=== PATIENT | female | born 1960 | race Caucasian/White ===

== ENCOUNTER → 2016-07-06 | Outpatient (CLI) | payer OTHER ==
[~2016-07-06] MED LIST: ALL180 PO; ALPR-385 PO; B-COTAB18 PO; CIPR-255 PO; ESOM1CAP34 PO; FERR325T PO; HYDR-4079 PO; IMT100 PO; MULT-506 PO; NUTRTAB44 PO; POTA20TA16 PO; PRZ/40 PO; RANI300T PO; SPIR50TA3 PO; SUCR1TAB PO
== END | disposition home or self-care (01) ==
LOC: C.LABPBG 10:45
PROVIDERS: ATTEND Family Medicine
DX: R11.2 Nausea with vomiting, unspecified (principal); R68.81 Early satiety; R14.0 Abdominal distension (gaseous); E78.5 Hyperlipidemia, unspecified; R73.03 Prediabetes; E61.1 Iron deficiency; Z11.59 Encounter for screening for other viral diseases

== ENCOUNTER → 2016-07-06 | Outpatient (CLI) | payer OTHER ==
[2016-07-06 18:44] LABS: URINE APPEARANCE TURBID (CLEAR); URINE BILIRUBIN NEG (NEG); URINE COLOR DK YELLOW; URINE EPITHELIAL CELL AUTO >30 /lpf (0-5); URINE NITRITE NEG (NEG); URINE SPECIFIC GRAVITY 1.024 (1.000-1.030); UROBILINOGEN NEG (NEG)
[2016-07-06 18:45] LABS: MANUAL MICROSCOPIC REQUIRED? NO; REVIEW REQ? NO
== END | disposition home or self-care (01) ==
LOC: C.LABSPEC 11:55
PROVIDERS: ATTEND Family Medicine
DX: R10.9 Unspecified abdominal pain (principal)

== ENCOUNTER → 2016-07-08 | Outpatient (CLI) | payer OTHER ==
--- NOTE | 2016-07-08 14:24 | DIAGNOSTIC IMAGING REPORT ---
CT OF THE ABDOMEN AND PELVIS WITHOUT CONTRAST CLINICAL HISTORY: Right flank pain. Back pain. Evaluate for stone. COMPARISON STUDY: CT of the abdomen and pelvis July 21, 2015 and abdominal series February 25, 2016. TECHNIQUE: Axial images of the abdomen and pelvis were obtained without IV contrast. Images were reviewed in the axial, sagittal, and coronal planes. FINDINGS: No renal, ureteral or bladder calculi are present. There is no hydronephrosis or hydroureter. Evaluation of the remainder of the abdomen and pelvis is suboptimal on this unenhanced exam. Unenhanced images of the liver, spleen, adrenal glands and pancreas are normal. There is no peripancreatic infiltration. The gallbladder is not visualized. The caliber of small and large bowel are normal. The appendix is normal. There is sigmoid diverticulosis without evidence for acute diverticulitis. There is no ascites or lymphadenopathy. No suspicious skeletal lesions are identified. IMPRESSION: 1. No urinary calculi or hydronephrosis. 2. No acute process within the abdomen or pelvis on unenhanced exam. Normal appendix. Electronically signed by: Tj Blunt M.D. 07/08/2016 2:22 PM Dictated Date/Time: 07/08/2016 2:17 PM
== END | disposition home or self-care (01) ==
LOC: C.CTS 13:44
PROVIDERS: ATTEND Family Medicine
DX: R10.9 Unspecified abdominal pain (principal)

== ENCOUNTER → 2016-08-20 | Outpatient (CLI) | payer OTHER ==
[~2016-08-20] MED LIST changes: +FERR1TAB62 PO; -FERR325T PO
[2016-08-20 17:24] LABS: BENZODIAZEPINE, URINE POS (NEG); COCAINE,URINE NEG (NEG); PHENCYCLIDINE, URINE NEG (NEG)
[2016-08-22 23:24] LABS: COD UR NEGATIVE NG/ML (CUTOFF=50); HYDROCOD UR 2030 NG/ML (CUTOFF=50); HYDROMOR UR NEGATIVE NG/ML (CUTOFF=50); HYDROXYETHYLFLURAZEPAM CONF NEGATIVE NG/ML (CUTOFF=50); HYDROXYMIDAZOLAM NEGATIVE NG/ML (CUTOFF=50); HYDROXYTRIAZOLAM CONF NEGATIVE NG/ML (CUTOFF=50); MORPHINE UR NEGATIVE NG/ML (CUTOFF=50); NORHYDROCODONE CONF UR 1790 NG/ML (CUTOFF=50); OXYMORPH UR NEGATIVE NG/ML (CUTOFF=50); TEMAZEPAM CONF NEGATIVE NG/ML (CUTOFF=50)
== END | disposition home or self-care (01) ==
LOC: C.LABPBG 15:01
PROVIDERS: ATTEND Family Medicine
DX: Z51.81 Encounter for therapeutic drug level monitoring (principal)

== ENCOUNTER → 2017-01-11 | Outpatient (CLI) | payer OTHER ==
[~2017-01-11] MED LIST changes: -FERR1TAB62 PO; +FERR325T PO
[2017-01-11 12:16] LABS: MEAN CELL VOLUME 91.5 fL (80-100); MEAN CORPUSCULAR HEMOGLOBIN 30.8 pg (25-34); MEAN CORPUSCULAR HGB CONC 33.7 g/dl (32-36); MEAN PLATELET VOLUME 10.7 fL (7.4-10.4); PLATELET COUNT 394 K/uL (130-400); RED BLOOD COUNT 4.48 M/uL (4.2-5.4); WHITE BLOOD COUNT 8.83 K/uL (4.8-10.8)
[2017-01-11 12:39] LABS: ESTIMATED AVERAGE GLUCOSE 117 mg/dl; HA1C FLAG Normal (Normal)
[2017-01-11 12:42] LABS: BLOOD UREA NITROGEN 10 mg/dl (7-18); BUN/CREATININE RATIO 12.3 (10-20); C-REACTIVE PROTEIN < 0.29 mg/dl (0-0.29); CALCIUM 9.2 mg/dl (8.5-10.1); CARBON DIOXIDE 30 mmol/L (21-32); CHLORIDE 105 mmol/L (98-107); CREATININE 0.84 mg/dl (0.60-1.20); GLUCOSE 100 mg/dl (70-99); POTASSIUM 4.2 mmol/L (3.5-5.1); SODIUM 139 mmol/L (136-145); TRIGLYCERIDES 104 mg/dl (0-150); VERY LOW DENSITY LIPOPROT CALC 21 mg/dl
[2017-01-11 12:45] LABS: CHOLESTEROL 207 mg/dl (0-200); FERRITIN 156.9 ng/ml (8.0-388.0); HDL CHOLESTEROL 68 mg/dl; LDL CHOLESTEROL CALCULATED 118 mg/dl; RHEUMATOID FACTOR < 10.0 U/mL (0-15)
== END | disposition home or self-care (01) ==
LOC: C.LABPBG 07:37
PROVIDERS: ATTEND Family Medicine
DX: E78.5 Hyperlipidemia, unspecified (principal); E83.42 Hypomagnesemia; E87.6 Hypokalemia; R73.03 Prediabetes; M79.643 Pain in unspecified hand; M25.40 Effusion, unspecified joint; E61.1 Iron deficiency

== ENCOUNTER 2017-05-17 13:05 | Emergency (ER) | payer OTHER ==
[~2017-05-17] VITALS: Ht 152.4 cm; Wt 55.0 kg
[~2017-05-17 13:05] MED LIST changes: +FERR1TAB62 PO; -FERR325T PO; +POTA-639 PO; -POTA20TA16 PO; -SPIR50TA3 PO; +SPIR50TA5 PO
[2017-05-17 13:15] VITALS: Ht 152.4 cm; Wt 55.0 kg
[2017-05-17] MEDS ORDERED: MECLIZINE HCL 25 MG TAB PO STA (14:36)
[2017-05-17] MEDS ORDERED: SODIUM CHLORIDE 0.9% 1000ML 1,000 ML IV STA ×2 (14:36)
[2017-05-17] MEDS ORDERED: ONDANSETRON INJ 2 MG/ML 2 ML VIAL IV STA ×2 (14:36)
[2017-05-17] MEDS ORDERED: KETOROLAC TROMETHAMINE 30 MG/ML VIAL IV STA (14:36)
[2017-05-17] MEDS ORDERED: HYDROmorphone INJ 0.5 MG/0.5 ML SYR IV STA (14:36)
[2017-05-17 14:56] LABS: BASO % 0.4 %; BASO ABS # 0.05 K/uL (0-0.2); EOS % 0.3 %; EOS ABS # 0.04 K/uL (0-0.5); HEMATOCRIT 42.8 % (37-47); HEMOGLOBIN 14.8 g/dL (12.0-16.0); IG# 0.04 K/uL (0.00-0.02); LYMPH % 12.6 %; LYMPH ABS # 1.71 K/uL (1.2-3.4); MEAN CELL VOLUME 91.8 fL (80-100); MEAN CORPUSCULAR HEMOGLOBIN 31.8 pg (25-34); MEAN CORPUSCULAR HGB CONC 34.6 g/dl (32-36); MEAN PLATELET VOLUME 10.4 fL (7.4-10.4); MONO % 6.4 %; MONO ABS # 0.87 K/uL (0.11-0.59); NEUT ABS # 10.86 K/uL (1.4-6.5); PLATELET COUNT 423 K/uL (130-400); RED CELL DISTRIBUTION WIDTH CV 12.8 % (11.5-14.5); RED CELL DISTRIBUTION WIDTH SD 42.9 fL (36.4-46.3); WHITE BLOOD COUNT 13.57 K/uL (4.8-10.8)
[2017-05-17 15:01] VITALS: TEMP 37; O2SAT 99
--- NOTE | 2017-05-17 15:16 | DIAGNOSTIC IMAGING REPORT ---
CHEST ONE VIEW PORTABLE CLINICAL HISTORY: EVALUATE ALTERED MENTAL STATUS/WEAKNESS dyspnea COMPARISON STUDY: 02/25/2016 FINDINGS: The bones soft tissues and hemidiaphragms are normal. The cardiomediastinal silhouette is normal. The lungs are clear. The pulmonary vasculature is normal. IMPRESSION: Negative chest. The above report was generated using voice recognition software. It may contain grammatical, syntax or spelling errors. Electronically signed by: Kentrell Colindres M.D. 05/17/2017 3:15 PM Dictated Date/Time: 05/17/2017 3:15 PM
--- NOTE | 2017-05-17 15:20 | DIAGNOSTIC IMAGING REPORT ---
HEAD WITHOUT CONTRAST (CT) CT DOSE: 537.48 mGy.cm HISTORY: Mental status change EVALUATE ALTERED MENTAL STATUS/WEAKNESS TECHNIQUE: Multiaxial CT images of the head were performed without the use of intravenous contrast. A dose lowering technique was utilized adhering to the principles of ALARA. Comparison: None. Findings: The paranasal sinuses and mastoid air cells are clear. The calvarium and skull base are intact. The ventricles and sulci are within normal limits. There is no mass, hematoma, midline shift, or acute infarct. Impression: No acute intracranial abnormality. The above report was generated using voice recognition software. It may contain grammatical, syntax or spelling errors. Electronically signed by: Kentrell Colindres M.D. 05/17/2017 3:19 PM Dictated Date/Time: 05/17/2017 3:18 PM
[2017-05-17 16:13] LABS: ALBUMIN 4.1 gm/dl (3.4-5.0); ALT/SGPT 20 U/L (12-78); AST/SGOT 10 U/L (15-37); BLOOD UREA NITROGEN 13 mg/dl (7-18); CALCIUM 9.4 mg/dl (8.5-10.1); CARBON DIOXIDE 29 mmol/L (21-32); CREATININE 0.84 mg/dl (0.60-1.20); GLUCOSE 100 mg/dl (70-99); POTASSIUM 3.6 mmol/L (3.5-5.1); SODIUM 139 mmol/L (136-145)
[2017-05-17 16:23] LABS: ALKALINE PHOSPHATASE 84 U/L (45-117); TOTAL PROTEIN 8.6 gm/dl (6.4-8.2)
[2017-05-17 17:48] VITALS: BP 105/80; PULSE 63; O2SAT 98
--- NOTE | 2017-05-17 22:12 | EMERGENCY ROOM VISIT NOTE ---
History Report prepared by Liseth: Roberta Salmon Under the Supervision of: Dr. Tirstan Callaway D.O. First contact with patient: 14:17 Chief Complaint: NAUSEA Stated Complaint: NAUSEA, BACK/SHOULDER PAIN, HEADACHE Nursing Triage Summary: Nausea and kidney disease History of Present Illness The patient is a 56 year old female who presents to the Emergency Room with complaints of worsening nausea starting this morning. The patient states that she has been sick and dizzy for four days. She reports that she feels like her head is spinning. She reports that she has vomited 3 times today and has abdominal pain. She notes that she has had this before when she is dehydrated and has a flare up of Gitelman's Syndrome. She states that she has these symptoms once to twice a month.She states that it is worse with movement. The patient complains of her legs feeling weak and being able to feel her pulse in her head. The patient denies chest pain, shortness of breath, nausea, and fever. No focal weakness. Source of History: patient Onset: four days ago Position: other (global) Quality: other ("head is spinning") Timing: worsening Modifying Factors (Worsening): movement Associated Symptoms: + vomiting, + abdominal pain, + weakness, No fevers, No chest pain, No SOB, No nausea Note: The patient complains of dizziness and feeling her pulse in her head. Review of Systems See HPI for pertinent positives & negatives. A total of 10 systems reviewed and were otherwise negative. Past Medical & Surgical Medical Problems: (1) Anxiety disorder (2) Depressive disorder (3) GERD (gastroesophageal reflux disease) (4) Gitelman syndrome (5) Gitelman syndrome (6) HTN (hypertension) (7) Hypokalemia (8) Kidney disease (9) Shingles Surgical Problems: (1) History of cholecystectomy (2) Previous section Family History Diabetes mellitus Gallbladder disease Heart disease Hypertension Kidney disease Kidney stones Social History Smoking Status: Former Smoker Alcohol Use: occasionally Marital Status: Housing Status: lives with family Occupation Status: unemployed Current/Historical Medications Scheduled B-Complex Vitamins (Vitamin B Complex), 1 TAB PO QAM Esomeprazole Magnesium (Esomeprazole Magnesium), 40 MG PO BID Ferrous Sulfate (Ferrous Sulfate), 325 MG PO BIDM Fluoxetine Hcl (Prozac), 40 MG PO HS Multivitamin (Multivitamin), 1 TAB PO QAM Nutritional Supplements (Estroven Pm), 1 TAB PO HS Potassium Ext Rel (Klor-Con), 40 MEQ PO QPM Ranitidine Hcl (Zantac), 300 MG PO BID Spironolactone (Aldactone), 50 MG PO HS Scheduled PRN Fexofenadine HCl (Fexofenadine HCl), 180 MG PO DAILY PRN for Allergy Symptoms Sucralfate (Sucralfate), 1 GM PO ACHS PRN for Indigestion Sumatriptan Succinate (Imitrex), 100 MG PO UD PRN for Migraine Allergies Coded Allergies: Iodinated Contrast Media (Verified Allergy, Severe, THROAT SWELLING, HIVES , 02/25/16) Amoxicillin (Unverified Allergy, Intermediate, rash, 05/17/17) Clavulanic Acid (Unverified Allergy, Intermediate, rash, 05/17/17) Sulfa Antibiotics (Verified Allergy, Intermediate, "SULFA": UNKNOWN, ) CI Pigment Blue 63 (Unverified Allergy, Unknown, TORE STOMACH UP, 05/17/17) Dexlansoprazole (Unverified Allergy, Unknown, TORE STOMACH UP, 05/17/17) Latex (Verified Allergy, Unknown, SORES, 05/17/17) Sulfate (Unverified Allergy, Unknown, BLOTCHY, 05/17/17) Meperidine (Verified Adverse Reaction, Intermediate, VOMITING, 02/25/16) Morphine (Verified Adverse Reaction, Intermediate, VOMITING, 05/17/17) Physical Exam Vital Signs Date Time Temp Pulse Resp B/P (MAP) Pulse Ox O2 Delivery O2 Flow Rate FiO2 05/17/17 17:48 63 105/80 98 05/17/17 17:00 79 16 124/74 99 Room Air 05/17/17 15:01 99 Room Air 05/17/17 15:01 37.0 76 18 127/79 100 Room Air 81 132/84 80 134/76 05/17/17 15:00 74 16 129/78 99 Room Air 05/17/17 13:15 37.0 85 20 131/87 97 Room Air Physical Exam GENERAL: Sitting up in bed, alert, well appearing, well nourished, no distress, non-toxic EYE EXAM: normal conjunctiva. PERRL and EOM's grossly intact. OROPHARYNX: no exudate, no erythema, lips, buccal mucosa, and tongue normal and mucous membranes are moist NECK: supple, no nuchal rigidity, no adenopathy, non-tender LUNGS: Clear to auscultation. Normal chest wall mechanics HEART: no murmurs, S1 normal and S2 normal ABDOMEN: abdomen soft, non-tender, normo-active bowel sounds, no masses, no rebound or guarding. BACK: Back is symmetrical on inspection and there is no deformity, no midline tenderness, no CVA tenderness. Acute reproducible tenderness in mid-thoracic region paraspinal tacking up to OA joint causing cephalgia. SKIN: no rashes and no bruising UPPER EXTREMITIES: upper extremities are grossly normal. LOWER EXTREMITIES: No pitting edema. NEURO EXAM: Normal sensorium, cranial nerves II-XII intact, normal speech, no weakness of arms, no weakness of legs. No drift. Finger to nose intact. Gross sensation intact. Medical Decision & Procedures ER Provider Diagnostic Interpretation: Radiology results as stated below per my review and the radiologist's interpretation: CHEST ONE VIEW PORTABLE CLINICAL HISTORY: EVALUATE ALTERED MENTAL STATUS/WEAKNESS dyspnea COMPARISON STUDY: 02/25/2016 FINDINGS: The bones soft tissues and hemidiaphragms are normal. The cardiomediastinal silhouette is normal. The lungs are clear. The pulmonary vasculature is normal. IMPRESSION: Negative chest. The above report was generated using voice recognition software. It may contain grammatical, syntax or spelling errors. Electronically signed by: Kentrell Colindres M.D. 05/17/2017 3:15 PM Dictated Date/Time: 05/17/2017 3:15 PM HEAD WITHOUT CONTRAST (CT) CT DOSE: 537.48 mGy.cm HISTORY: Mental status change EVALUATE ALTERED MENTAL STATUS/WEAKNESS TECHNIQUE: Multiaxial CT images of the head were performed without the use of intravenous contrast. A dose lowering technique was utilized adhering to the principles of ALARA. Comparison: None. Findings: The paranasal sinuses and mastoid air cells are clear. The calvarium and skull base are intact. The ventricles and sulci are within normal limits. There is no mass, hematoma, midline shift, or acute infarct. Impression: No acute intracranial abnormality. The above report was generated using voice recognition software. It may contain grammatical, syntax or spelling errors. Electronically signed by: Kentrell Colindres M.D. 05/17/2017 3:19 PM Dictated Date/Time: 05/17/2017 3:18 PM Laboratory Results 05/17/17 13:55 Red Blood Count 4.66, Mean Corpuscular Volume 91.8, Mean Corpuscular Hemoglobin 31.8, Mean Corpuscular Hemoglobin Concent 34.6, Mean Platelet Volume 10.4, Neutrophils (%) (Auto) 80.0, Lymphocytes (%) (Auto) 12.6, Monocytes (%) (Auto) 6.4, Eosinophils (%) (Auto) 0.3, Basophils (%) (Auto) 0.4, Neutrophils # (Auto) 10.86, Lymphocytes # (Auto) 1.71, Monocytes # (Auto) 0.87, Eosinophils # (Auto) 0.04, Basophils # (Auto) 0.05 05/17/17 13:55 Test 05/17/17 13:55 05/17/17 14:42 05/17/17 15:01 White Blood Count 13.57 K/uL (4.8-10.8) Red Blood Count 4.66 M/uL (4.2-5.4) Hemoglobin 14.8 g/dL (12.0-16.0) Hematocrit 42.8 % (37-47) Mean Corpuscular Volume 91.8 fL (80-100) Mean Corpuscular Hemoglobin 31.8 pg (25-34) Mean Corpuscular Hemoglobin Concent 34.6 g/dl (32-36) Platelet Count 423 K/uL (130-400) Mean Platelet Volume 10.4 fL (7.4-10.4) Neutrophils (%) (Auto) 80.0 % Lymphocytes (%) (Auto) 12.6 % Monocytes (%) (Auto) 6.4 % Eosinophils (%) (Auto) 0.3 % Basophils (%) (Auto) 0.4 % Neutrophils # (Auto) 10.86 K/uL (1.4-6.5) Lymphocytes # (Auto) 1.71 K/uL (1.2-3.4) Monocytes # (Auto) 0.87 K/uL (0.11-0.59) Eosinophils # (Auto) 0.04 K/uL (0-0.5) Basophils # (Auto) 0.05 K/uL (0-0.2) RDW Standard Deviation 42.9 fL (36.4-46.3) RDW Coefficient of Variation 12.8 % (11.5-14.5) Immature Granulocyte % (Auto) 0.3 % Immature Granulocyte # (Auto) 0.04 K/uL (0.00-0.02) Anion Gap 5.0 mmol/L (3-11) Est Creatinine Clear Calc Drug Dose 57.5 ml/min Estimated GFR () 89.4 Estimated GFR (Non- 77.2 BUN/Creatinine Ratio 15.6 (10-20) Calcium Level 9.4 mg/dl (8.5-10.1) Total Bilirubin 0.3 mg/dl (0.2-1) Direct Bilirubin < 0.1 mg/dl (0-0.2) Aspartate Amino Transf (AST/SGOT) 10 U/L (15-37) Alanine Aminotransferase (ALT/SGPT) 20 U/L (12-78) Alkaline Phosphatase 84 U/L (45-117) Troponin I < 0.015 ng/ml (0-0.045) Total Protein 8.6 gm/dl (6.4-8.2) Albumin 4.1 gm/dl (3.4-5.0) Thyroid Stimulating Hormone (TSH) 1.190 uIu/ml (0.300-4.500) Bedside Glucose 91 mg/dl (70-90) Urine Color DK YELLOW Urine Appearance CLEAR (CLEAR) Urine pH 5.0 (4.5-7.5) Urine Specific [place] 1.025 (1.000-1.030) Urine Protein NEG (NEG) Urine Glucose (UA) NEG (NEG) Urine Ketones 2+ (NEG) Urine Occult Blood 1+ (NEG) Urine Nitrite NEG (NEG) Urine Bilirubin NEG (NEG) Urine Urobilinogen NEG (NEG) Urine Leukocyte Esterase TRACE (NEG) Urine WBC (Auto) 1-5 /hpf (0-5) Urine RBC (Auto) 0-4 /hpf (0-4) Urine Hyaline Casts (Auto) 1-5 /lpf (0-5) Urine Epithelial Cells (Auto) 20-30 /lpf (0-5) Urine Bacteria (Auto) NEG (NEG) Laboratory results per my review. Medications Administered Medications (Trade) Dose Ordered Sig/Taylor Route Start Time Stop Time Status Last Admin Dose Admin Sodium Chloride 1,000 ml @ 999 mls/hr Q1H1M STAT IV 05/17/17 14:36 05/17/17 15:36 DC 05/17/17 14:53 999 MLS/HR Ondansetron HCl (Zofran Inj) 4 mg NOW STAT IV 05/17/17 14:36 05/17/17 14:39 DC 05/17/17 14:52 4 MG Ketorolac Tromethamine (Toradol Inj) 30 mg NOW STAT IV 05/17/17 14:36 05/17/17 14:39 DC 05/17/17 14:52 30 MG Meclizine HCl (Antivert Tab) 25 mg NOW STAT PO 05/17/17 14:36 05/17/17 14:39 DC 05/17/17 14:56 25 MG Hydromorphone HCl (Dilaudid Inj) 0.5 mg NOW STAT IV 05/17/17 14:36 05/17/17 14:39 DC 05/17/17 14:55 0.5 MG ECG Indication: nausea Rate (beats per minute): 68 Rhythm: sinus rhythm Findings: no ectopy, other (normla axis) ED Course ED COURSE: Vital signs were reviewed and showed normal vitals. The patients medical record was reviewed The above diagnostic studies were performed and reviewed. ED treatments and interventions as stated above. 1429: The patient was evaluated in room C6. A complete history and physical examination was performed. 1436: Ordered Dilaudid Inj 0.5 mg IV, Antivert Tab 25 mg PO, Toradol Inj 30 mg IV, Zofran Inj 4 mg IV, NSS 1000 ml @ 999 mls/hr IV, Zofran Inj 4 mg IV, NSS 1000 ml @ 999 mls/hr IV. 1708: Upon reevaluation, the patient is resting comfortably.I discussed my findings with the patient and she understands and agrees with the treatment plan. Based on the patients age, coexisting illnesses, exam and lab findings the decision to treat as an outpatient was made. The patient remained stable while under my care. The patient appeared well at the time of discharge. Medical Decision Differential diagnosis includes etiologies such as benign positional vertigo, dehydration, hypovolemia, anemia, tumor, infection, hypoglycemia, electrolyte abnormalities, cardiac sources, intracerebral event, toxicologic, neurologic, as well as others were entertained. Patient is a 36-year-old female who presents to ER feeling dizzy which which is purely positional. Patient has had this multiple times before in the past. Labs show a mild leukocytosis of 13,000. BMP all LFTs, bilirubin, troponin and TSH was unremarkable. UA was unremarkable. CT head was negative. Chest x-ray was unremarkable. Patient was updated at bedside. She is completely neurologically intact. No cerebellar signs. Patient was given fluids. She was slightly dehydrated with ketones in urine. She notes she has had this type of vertigo multiple times before in the past. I believe her back pain is purely muscle skeletal and examined intermittent to her headache. This was not the worse headache of her life. It did come on gradually. No signs meningitis or encephalitis. Based on her symptoms patient was given fluids, Antivert, Zofran and narcotics. She felt significant better. She is discharged follow- up with PCP as an outpatient as her main concern was dehydration with her kidney disease. Discussed with Pt concerning signs and symptoms to watch out for. Pt was instructed to follow up with their PCP and discussed with the patient their option to return to the ED at anytime for persistent or worsening symptoms. The appropriate anticipatory guidance and out-patient management, including indications for return to the emergency department, were explained at length to the patient and understood. Medication Reconcilliation Current Medication List: was personally reviewed by me Blood Pressure Screening Patient's blood pressure: Normal blood pressure Blood pressure disposition: Did not require urgent referral Impression Primary Impression: Vertigo Additional Impressions: Musculoskeletal back pain Headache Scribe Attestation The scribe's documentation has been prepared under my direction and personally reviewed by me in its entirety. I confirm that the note above accurately reflects all work, treatment, procedures, and medical decision making performed by me. Departure Information Dispostion Home / Self-Care Referrals Barbie Baron DO (PCP) Forms HOME CARE DOCUMENTATION FORM, IMPORTANT VISIT INFORMATION Patient Instructions My [facility] Additional Instructions Please follow up with your primary care doctor with in the next 24 hours. Any worsening of your symptoms, please return to the ED immediately. This includes any fevers greater than 100.4, worsening pain, weakness in your arms or legs, change in vision, chest pain, shortness breath, persistent nausea, vomiting, unable to eat or drink, or any other concerning signs or symptoms from your standpoint. Please take Tylenol or Motrin as needed for pain. Problem Qualifiers Additional Impressions: Headache Headache type: unspecified Headache chronicity pattern: acute headache Intractability: not intractable Qualified Codes: R51 - Headache
[2017-06-06] MEDS ORDERED: TRAZ1TAB49 PO (12:11)
[2017-06-06] MEDS ORDERED: ONDA4TAB46 PO (12:11)
[2017-06-06] MEDS ORDERED: PRLSR20 PO (12:11)
== END 2017-05-17 17:58 | disposition home or self-care (01) ==
LOC: C.EDB 13:07 → C.EDC 17:58
DX: R42 Dizziness and giddiness (principal); M54.9 Dorsalgia, unspecified; E86.0 Dehydration; R51 Headache; E26.81 Bartter's syndrome; F41.9 Anxiety disorder, unspecified; F32.9 Major depressive disorder, single episode, unspecified; K21.9 Gastro-esophageal reflux disease without esophagitis; I10 Essential (primary) hypertension; Z90.49 Acquired absence of other specified parts of digestive tract; Z83.3 Family history of diabetes mellitus; Z82.49 Family history of ischemic heart disease and other diseases of the circulatory system; Z84.1 Family history of disorders of kidney and ureter; Z87.891 Personal history of nicotine dependence; Z79.899 Other long term (current) drug therapy; N28.9 Disorder of kidney and ureter, unspecified

== ENCOUNTER → 2017-06-06 | Day surgery (SDC) | payer OTHER ==
[~2017-06-06] VITALS: Ht 152.4 cm; Wt 54.5 kg
[~2017-06-06] MED LIST changes: -ALPR-385 PO; -CIPR-255 PO; +DSY50 PO; -HYDR-4079 PO; +LIDOCAINE HCL 2% 2 ML VIAL (20MG/ML) ONE; +MIDAZOLAM HCL 1 MG/ML 2ML VIAL ONE; +ONDA4TAB46 PO; +ONDANSETRON INJ 2 MG/ML 2 ML VIAL ONE; -POTA-639 PO; +POTA20TA16 PO; +PRLSR20 PO; +PROMETHAZINE HCL INJ 25 MG in SODIUM CHLORIDE 0.9% 50ML 50 ML IV ONE; +PROMETHAZINE HCL INJ 25 MG/ML 1 ML VIAL ONE; +PROPOFOL IV EMULSION 10 MG/ML 20 ML VIAL IV ONE; +SPIR50TA3 PO; -SPIR50TA5 PO
[2017-06-06 12:12] VITALS: Ht 152.4 cm; Wt 54.5 kg
--- NOTE | 2017-06-06 12:40 | Endo History and Physical ---
History & Physical Date of Service: Jun 06, 2017. Chief Complaint: dysphagia,abdominal pain and nausea,vomiting Referring Physician: Dr. Barbie Baron History of Present Illness 56 yo CF who presents for EGD secondary to dysphagia and abdominal pain. Past Medical History Anxiety, Reflux, Hypertension, Kidney Disease, Other, Depression Past Surgical History Hx Cardiac Surgery: No Hx Internal Defibrillator: No Hx Pacemaker: No Hx Abdominal Surgery: Yes (C SECTION, GALLBLADDER) Hx of Implantable Prosthesis: No Hx Post-Op Nausea and Vomiting: No Hx Cancer Surgery: No Hx Thoracic Surgery: No Hx Orthopedic: No Hx Urinary Tract Surgery: No Family History None Social History Smoking Status: Former Smoker Hx Substance Use: Yes (marijuana use) Hx Alcohol Use: No Allergies Coded Allergies: Iodinated Contrast Media (Verified Allergy, Severe, THROAT SWELLING, HIVES , 02/25/16) Amoxicillin (Verified Allergy, Intermediate, rash, 06/06/17) Clavulanic Acid (Verified Allergy, Intermediate, rash, 06/06/17) Sulfa Antibiotics (Verified Allergy, Intermediate, "SULFA": UNKNOWN, ) CI Pigment Blue 63 (Verified Allergy, Unknown, TORE STOMACH UP, 06/06/17) Dexlansoprazole (Verified Allergy, Unknown, TORE STOMACH UP, 06/06/17) Latex (Verified Allergy, Unknown, SORES, 05/17/17) Sulfate (Verified Allergy, Unknown, BLOTCHY, 06/06/17) Meperidine (Verified Adverse Reaction, Intermediate, VOMITING, 02/25/16) Morphine (Verified Adverse Reaction, Intermediate, VOMITING, 05/17/17) Current Medications Reported Home Medications Medications Dose Route/Sig Max Daily Dose Days Date Category Dose Instructions Zofran (Ondansetron HCl) 4 Mg Tab 4 Mg PO Q6 PRN 06/06/17 Reported Trazodone HCl 50 Mg Tab 50 Mg PO HS 06/06/17 Reported Prilosec (Omeprazole) 20 Mg Capcr 40 Mg PO DAILY 06/06/17 Reported Imitrex (Sumatriptan Succinate) 100 Mg Tab 100 Mg PO UD PRN 02/25/16 Reported TAKE 1 TABLET AT ONSET OF MIGRAINE HEADACHE, MAY REPEAT IN 2 HOURS IF NEEDED Sucralfate 1 Gm Tab 1 Gm PO ACHS PRN 02/25/16 Reported CRUSH ONE TABLET AND MIX WITH 15 ML OF WATER AND TAKE NEEDED 30 MINUTES BEFORE MEALS AND AT BEDTIME Aldactone (Spironolactone) 50 Mg Tab 50 Mg PO HS 02/25/16 Reported Fexofenadine HCl 180 Mg Tab 180 Mg PO DAILY PRN 02/25/16 Reported Zantac (Ranitidine Hcl) 300 Mg Tab 300 Mg PO BID 02/25/16 Reported Ferrous Sulfate 325 Mg Tab 325 Mg PO BIDM 10/09/15 Reported Multivitamin (Multivitamins) Tab 1 Tab PO QAM 08/20/15 Reported Estroven Pm (Nutritional Supplements) 1 Tab Tab 1 Tab PO HS 09/28/14 Reported Prozac (Fluoxetine Hcl) 40 Mg Cap 40 Mg PO HS 12/29/13 Reported Vitamin B Complex (B-Complex Vitamins) 1 Tab Tab 1 Tab PO QAM 12/29/13 Reported Klor-Con (Potassium Chloride) 20 Meq Tabcr 40 Meq PO QPM 12/29/13 Reported Vital Signs Weight (Kilograms): 54.55 Height (Feet): 5 Height (Inches): 0 Date Time Temp Pulse Resp B/P (MAP) Pulse Ox O2 Delivery O2 Flow Rate FiO2 06/06/17 12:25 36.9 81 16 115/74 (88) 98 Room Air Physical Exam General Appearance: WD/WN, no apparent distress Respiratory/Chest: Auscultation: breath sounds normal Cardiovascular: Heart Auscultation: RRR Abdomen: Bowel Sounds: normal Inspection & Palpation: soft, non-distended, no tenderness, guarding & rebound Assessment and Plan Assessment: 56 yo CF who presents for EGD secondary to dysphagia and abdominal pain. Plan: Proceed with EGD.
--- NOTE | 2017-06-06 13:07 | GI REPORT ---
Procedure Date: 06/06/2017 12:44 PM Procedure: Upper GI endoscopy Indications: Epigastric abdominal pain, Dysphagia Medicines: Monitored Anesthesia Care Complications: No immediate complications. Estimated Blood Loss: Estimated blood loss: none. Procedure: Pre-Anesthesia Assessment: - Prior to the procedure, a History and Physical was performed, and patient medications and allergies were reviewed. The patient's tolerance of previous anesthesia was also reviewed. The risks and benefits of the procedure and the sedation options and risks were discussed with the patient. All questions were answered, and informed consent was obtained. Prior Anticoagulants: The patient has taken no previous anticoagulant or antiplatelet agents. ASA Grade Assessment: II - A patient with mild systemic disease. After reviewing the risks and benefits, the patient was deemed in satisfactory condition to undergo the procedure. After obtaining informed consent, the endoscope was passed under direct vision. Throughout the procedure, the patient's blood pressure, pulse, and oxygen saturations were monitored continuously. The scope was introduced through the mouth, and advanced to the second part of duodenum. The upper GI endoscopy was accomplished without difficulty. The patient tolerated the procedure well. Findings: A mild Schatzki ring (acquired) was found at the gastroesophageal junction. A TTS dilator was passed through the scope. Dilation with an 18-19-20 mm balloon dilator was performed to 20 mm. Biopsies were taken with a cold forceps for histology. Localized minimal inflammation characterized by erythema was found in the gastric antrum. Biopsies were taken with a cold forceps for histology. The examined duodenum was normal. Impression: - Mild Schatzki ring. Dilated. Biopsied. - Gastritis. Biopsied. - Normal examined duodenum. Recommendation: - Resume previous diet. - Continue present medications. - Await pathology results. - Return to GI office as previously scheduled. Mohan Frias DO 06/06/2017 1:07:09 PM This report has been signed electronically. Note Initiated On: 06/06/2017 12:44 PM I attest to the content of the Intraoperative Record and orders documented therein, exceptions below
--- NOTE | 2017-06-06 13:09 | Discharge Instructions ---
Endoscopy Patient Instructions Date / Procedure(s) Performed Jun 06, 2017. EGD Allergy Information Coded Allergies: Iodinated Contrast Media (Verified Allergy, Severe, THROAT SWELLING, HIVES , 02/25/16) Amoxicillin (Verified Allergy, Intermediate, rash, 06/06/17) Clavulanic Acid (Verified Allergy, Intermediate, rash, 06/06/17) Sulfa Antibiotics (Verified Allergy, Intermediate, "SULFA": UNKNOWN, ) CI Pigment Blue 63 (Verified Allergy, Unknown, TORE STOMACH UP, 06/06/17) Dexlansoprazole (Verified Allergy, Unknown, TORE STOMACH UP, 06/06/17) Latex (Verified Allergy, Unknown, SORES, 05/17/17) Sulfate (Verified Allergy, Unknown, BLOTCHY, 06/06/17) Meperidine (Verified Adverse Reaction, Intermediate, VOMITING, 02/25/16) Morphine (Verified Adverse Reaction, Intermediate, VOMITING, 05/17/17) Discharge Date / Findings Jun 06, 2017. Gastritis s/p biopsies Schatzki's Ring s/p dilation and biopsies Medication Instructions OK to resume all medications today as prescribed Reported Home Medications Medications Dose Route/Sig Max Daily Dose Days Date Category Dose Instructions Zofran (Ondansetron HCl) 4 Mg Tab 4 Mg PO Q6 PRN 06/06/17 Reported Trazodone HCl 50 Mg Tab 50 Mg PO HS 06/06/17 Reported Prilosec (Omeprazole) 20 Mg Capcr 40 Mg PO DAILY 06/06/17 Reported Imitrex (Sumatriptan Succinate) 100 Mg Tab 100 Mg PO UD PRN 02/25/16 Reported TAKE 1 TABLET AT ONSET OF MIGRAINE HEADACHE, MAY REPEAT IN 2 HOURS IF NEEDED Sucralfate 1 Gm Tab 1 Gm PO ACHS PRN 02/25/16 Reported CRUSH ONE TABLET AND MIX WITH 15 ML OF WATER AND TAKE NEEDED 30 MINUTES BEFORE MEALS AND AT BEDTIME Aldactone (Spironolactone) 50 Mg Tab 50 Mg PO HS 02/25/16 Reported Fexofenadine HCl 180 Mg Tab 180 Mg PO DAILY PRN 02/25/16 Reported Zantac (Ranitidine Hcl) 300 Mg Tab 300 Mg PO BID 02/25/16 Reported Ferrous Sulfate 325 Mg Tab 325 Mg PO BIDM 10/09/15 Reported Multivitamin (Multivitamins) Tab 1 Tab PO QAM 08/20/15 Reported Estroven Pm (Nutritional Supplements) 1 Tab Tab 1 Tab PO HS 09/28/14 Reported Prozac (Fluoxetine Hcl) 40 Mg Cap 40 Mg PO HS 12/29/13 Reported Vitamin B Complex (B-Complex Vitamins) 1 Tab Tab 1 Tab PO QAM 12/29/13 Reported Klor-Con (Potassium Chloride) 20 Meq Tabcr 40 Meq PO QPM 12/29/13 Reported Provider Instructions Activity Restrictions - No exercising or heavy lifting for 24 hours. - Do not drink alcohol the day of the procedure. - Do not drive a car or operate machinery until the day after the procedure. - Do not make any important decisions or sign important papers in 24 hours after the procedure. Following Day: - Return to full activity which may include returning to work/school. Diet Start your diet with liquids and light foods (jello, soup, juice, toast). Then eat your usual diet if not nauseated. Treatment For Common After Affects For mild abdominal pain, bloating, or excessive gas: - Rest - Eat lightly - Lie on right side Follow-Up Information Follow-up with Dr. Barbie Baron as scheduled Anesthesia Information What You Should Know You have had a procedure that required some medicine to reduce anxiety and discomfort. This treatment is called moderate sedation. After receiving the treatment, you may be sleepy, but you will be able to breathe on your own. The effects of the treatment may last for several hours. Follow these instructions along with Activity/Diet recommendations noted above: * Do NOT do anything where dizziness or clumsiness would be dangerous. * Rest quietly at home today, then you can be up and about tomorrow. * Have a responsible person stay with you the rest of today. * You may have had an I.V. today. If so, you may take the dressing off later today. Recommendations Call your doctor if: * Trouble breathing * Continuous vomiting for more than 24 hours * Temperature above 101 degrees * Severe abdominal pain or bloating * Pain not relieved by pain medicine ordered * There is increased drainage or redness from any incision * A large amount of rectal bleeding greater than 2-3 tablespoons. (If you had a polyp/s removed or have hemorrhoids, a small amount of blood - from the rectum is to be expected.) * You have any unanswered questions or concerns. IN THE EVENT OF A SERIOUS EMERGENCY, GO TO THE NEAREST EMERGENCY ROOM Your discharge instructions were prepared by provider Mohan Frias. Patient Instructions Signature Page Subha Adkins Patient (or Guardian) Signature/Date: I have read and understand the instructions given to me by my caregivers. Caregiver/RN/Doctor Signature/Date: The above-named patient and/or guardian has received patient instructions on this date. + Original Patient Signature Page (only) stays with chart. Please make copy for patient.
--- NOTE | 2017-06-06 13:47 | Anesthesiology Progress Note ---
Anesthesia Post Op Note Date & Time Jun 06, 2017 at 13:46 Vital Signs Pain Intensity: 7 Vital Signs Past 12 Hours Date Time Temp Pulse Resp B/P (MAP) Pulse Ox O2 Delivery O2 Flow Rate FiO2 06/06/17 13:27 64 18 160/90 (113) 97 Room Air 06/06/17 13:08 76 18 159/91 (113) 97 Room Air 06/06/17 12:25 36.9 81 16 115/74 (88) 98 Room Air Notes Mental Status: alert / awake / arousable, participated in evaluation Pt Amnestic to Procedure: Yes Nausea / Vomiting: improving with treatment Pain: improving with treatment Airway Patency, RR, SpO2: stable & adequate BP & HR: stable & adequate Hydration State: stable & adequate Anesthetic Complications: no major complications apparent
[2017-06-06 14:06] VITALS: BP 128/88; PULSE 75; O2SAT 99
== END | disposition home or self-care (01) ==
LOC: C.GI 11:55
PROVIDERS: ATTEND Internal Medicine
DX: K29.50 Unspecified chronic gastritis without bleeding (principal); K22.2 Esophageal obstruction; K21.9 Gastro-esophageal reflux disease without esophagitis; I12.9 Hypertensive chronic kidney disease with stage 1 through stage 4 chronic kidney disease, or unspecified chronic kidney disease; N18.9 Chronic kidney disease, unspecified; Z87.891 Personal history of nicotine dependence; F12.10 Cannabis abuse, uncomplicated; R10.13 Epigastric pain

== ENCOUNTER 2017-07-03 16:38 | Emergency (ER) | payer OTHER ==
[~2017-07-03] VITALS: Ht 152.4 cm; Wt 54.1 kg
[~2017-07-03 16:38] MED LIST changes: -ESOM1CAP34 PO; -LIDOCAINE HCL 2% 2 ML VIAL (20MG/ML) ONE; -MIDAZOLAM HCL 1 MG/ML 2ML VIAL ONE; -ONDANSETRON INJ 2 MG/ML 2 ML VIAL ONE; -PROMETHAZINE HCL INJ 25 MG in SODIUM CHLORIDE 0.9% 50ML 50 ML IV ONE; -PROMETHAZINE HCL INJ 25 MG/ML 1 ML VIAL ONE; -PROPOFOL IV EMULSION 10 MG/ML 20 ML VIAL IV ONE
[2017-07-03 16:40] VITALS: TEMP 36.8; Ht 152.4 cm; Wt 54.1 kg
[2017-07-03] MEDS ORDERED: LORAZEPAM 1 MG TAB SL STA (16:55)
[2017-07-03] MEDS ORDERED: KETOROLAC TROMETHAMINE 30 MG/ML VIAL IV STA (16:55)
[2017-07-03] MEDS ORDERED: SODIUM CHLORIDE 0.9% 1000ML 2,000 ML IV STA (16:55)
--- NOTE | 2017-07-03 17:04 | EMERGENCY ROOM VISIT NOTE ---
History Report prepared by Liseth: Sera Lima Under the Supervision of: Dr. Akil Pineda M.D. First contact with patient: 16:44 Chief Complaint: CARDIAC ASSESSMENT Stated Complaint: NERVOUS ACHE, CHEST FEELS HEA History of Present Illness The patient is a 56 year old female who presents to the Emergency Room with complaints of intermittent chest pain that started 5 days ago. The patient rates her pain a 8/10 in severity. She notes her symptoms went away and then came back yesterday. The patient notes her chest feels "tight" and "heavy". She reports she feels very anxious and it feels like her insides were shaking. The patient states she has a history of anxiety but does not take Ativan anymore since she uses marijuana. The patient denies any heart issues or diabetes in the past. 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 The patient states she has fever of 99.3, chills, vomiting, and cough. She denies any nasal congestion or urine symptoms. Source of History: patient Onset: 5 days ago Position: chest, other Timing: intermittent Associated Symptoms: + fevers, + chills, + cough, + vomiting, No urinary symptoms Review of Systems See HPI for pertinent positives and negatives. A total of ten systems were reviewed and were otherwise negative. Past Medical & Surgical Medical Problems: (1) Anxiety disorder (2) Depressive disorder (3) GERD (gastroesophageal reflux disease) (4) Gitelman syndrome (5) Gitelman syndrome (6) HTN (hypertension) (7) Hypokalemia (8) Kidney disease (9) Shingles Surgical Problems: (1) History of cholecystectomy (2) Previous section Family History Diabetes mellitus Gallbladder disease Heart disease Hypertension Kidney disease Kidney stones Social History Smoking Status: Former Smoker Alcohol Use: occasionally Marital Status: Housing Status: lives with family Occupation Status: unemployed Current/Historical Medications Scheduled B-Complex Vitamins (Vitamin B Complex), 1 TAB PO QAM Fluoxetine Hcl (Prozac), 40 MG PO HS Nutritional Supplements (Estroven Pm), 1 TAB PO HS Omeprazole (Prilosec), 40 MG PO DAILY Potassium Ext Rel (Klor-Con), 40 MEQ PO QPM Ranitidine Hcl (Zantac), 300 MG PO BID Spironolactone (Aldactone), 50 MG PO HS Trazodone HCl (Trazodone HCl), 50 MG PO HS Scheduled PRN Ondansetron Hcl (Zofran), 4 MG PO Q6 PRN for nausea Sucralfate (Sucralfate), 1 GM PO ACHS PRN for Indigestion Sumatriptan Succinate (Imitrex), 100 MG PO UD PRN for Migraine Allergies Coded Allergies: Iodinated Contrast Media (Verified Allergy, Severe, THROAT SWELLING, HIVES , 07/03/17) Amoxicillin (Verified Allergy, Intermediate, rash, 07/03/17) Clavulanic Acid (Verified Allergy, Intermediate, rash, 07/03/17) Sulfa Antibiotics (Verified Allergy, Intermediate, "SULFA": UNKNOWN, ) CI Pigment Blue 63 (Verified Allergy, Unknown, TORE STOMACH UP, 07/03/17) Dexlansoprazole (Verified Allergy, Unknown, TORE STOMACH UP, 07/03/17) Latex (Verified Allergy, Unknown, SORES, 07/03/17) Sulfate (Verified Allergy, Unknown, BLOTCHY, 07/03/17) Meperidine (Verified Adverse Reaction, Intermediate, VOMITING, 07/03/17) Morphine (Verified Adverse Reaction, Intermediate, VOMITING, 07/03/17) Physical Exam Vital Signs Date Time Temp Pulse Resp B/P (MAP) Pulse Ox O2 Delivery O2 Flow Rate FiO2 07/03/17 19:19 75 16 134/76 98 07/03/17 18:29 90 16 129/84 98 Room Air 07/03/17 17:02 110 07/03/17 16:40 36.8 109 22 137/90 98 Room Air Physical Exam GENERAL: Awake, alert, anxious appearing, in no distress HENT: Normocephalic, atraumatic. Oropharynx unremarkable. Dry mucus membranes. EYES: Normal conjunctiva. Sclera non-icteric. NECK: Supple. No nuchal rigidity. FROM. No JVD. RESPIRATORY: Clear to auscultation. CARDIAC: Sinus tachycardia. Extremities warm and well perfused. Pulses equal. ABDOMEN: Soft, non-distended. No tenderness to palpation. No rebound or guarding. No masses. RECTAL: Deferred. MUSCULOSKELETAL: Chest examination reveals no tenderness. The back is symmetrical on inspection without obvious abnormality. There is no CVA tenderness to palpation. No joint edema. LOWER EXTREMITIES: Calves are equal size bilaterally and non-tender. No edema. No discoloration. NEURO: Normal sensorium. No sensory or motor deficits noted. SKIN: No rash or jaundice noted. Medical Decision & Procedures ER Provider Diagnostic Interpretation: Radiology results as stated below per my review and radiologist interpretation: CHEST ONE VIEW PORTABLE HISTORY: Atypical CHEST PAIN COMPARISON: Chest 05/17/2017. FINDINGS: The lungs are clear. Cardiac silhouette is normal in size. No pleural effusions. No pneumothorax. IMPRESSION: No acute process. Electronically signed by: Luis Antonio Pizano M.D. 07/03/2017 5:48 PM Dictated Date/Time: 07/03/2017 5:48 PM Laboratory Results 07/03/17 17:10 Red Blood Count 4.93, Mean Corpuscular Volume 87.4, Mean Corpuscular Hemoglobin 31.0, Mean Corpuscular Hemoglobin Concent 35.5, Mean Platelet Volume 11.1, Neutrophils (%) (Auto) 44.2, Lymphocytes (%) (Auto) 44.0, Monocytes (%) (Auto) 11.0, Eosinophils (%) (Auto) 0.3, Basophils (%) (Auto) 0.4, Neutrophils # (Auto ) 3.26, Lymphocytes # (Auto) 3.24, Monocytes # (Auto) 0.81, Eosinophils # (Auto ) 0.02, Basophils # (Auto) 0.03 07/03/17 17:10 Test 07/03/17 17:10 White Blood Count 7.37 K/uL (4.8-10.8) Red Blood Count 4.93 M/uL (4.2-5.4) Hemoglobin 15.3 g/dL (12.0-16.0) Hematocrit 43.1 % (37-47) Mean Corpuscular Volume 87.4 fL (80-100) Mean Corpuscular Hemoglobin 31.0 pg (25-34) Mean Corpuscular Hemoglobin Concent 35.5 g/dl (32-36) Platelet Count 293 K/uL (130-400) Mean Platelet Volume 11.1 fL (7.4-10.4) Neutrophils (%) (Auto) 44.2 % Lymphocytes (%) (Auto) 44.0 % Monocytes (%) (Auto) 11.0 % Eosinophils (%) (Auto) 0.3 % Basophils (%) (Auto) 0.4 % Neutrophils # (Auto) 3.26 K/uL (1.4-6.5) Lymphocytes # (Auto) 3.24 K/uL (1.2-3.4) Monocytes # (Auto) 0.81 K/uL (0.11-0.59) Eosinophils # (Auto) 0.02 K/uL (0-0.5) Basophils # (Auto) 0.03 K/uL (0-0.2) RDW Standard Deviation 39.7 fL (36.4-46.3) RDW Coefficient of Variation 12.4 % (11.5-14.5) Immature Granulocyte % (Auto) 0.1 % Immature Granulocyte # (Auto) 0.01 K/uL (0.00-0.02) Anion Gap 11.0 mmol/L (3-11) Est Creatinine Clear Calc Drug Dose 55.0 ml/min Estimated GFR () 93.4 Estimated GFR (Non- 80.6 BUN/Creatinine Ratio 19.3 (10-20) Calcium Level 8.7 mg/dl (8.5-10.1) Total Bilirubin 0.3 mg/dl (0.2-1) Direct Bilirubin < 0.1 mg/dl (0-0.2) Aspartate Amino Transf (AST/SGOT) 28 U/L (15-37) Alanine Aminotransferase (ALT/SGPT) 47 U/L (12-78) Alkaline Phosphatase 97 U/L (45-117) Troponin I < 0.015 ng/ml (0-0.045) Total Protein 8.2 gm/dl (6.4-8.2) Albumin 3.7 gm/dl (3.4-5.0) Lipase 173 U/L (73-393) Laboratory results reviewed by me Medications Administered Medications (Trade) Dose Ordered Sig/Taylor Route Start Time Stop Time Status Last Admin Dose Admin Sodium Chloride 2,000 ml @ 999 mls/hr Q2H1M STAT IV 07/03/17 16:55 07/03/17 18:55 DC 07/03/17 16:55 999 MLS/HR Ketorolac Tromethamine (Toradol Inj) 15 mg NOW STAT IV 07/03/17 16:55 07/03/17 17:01 DC 07/03/17 16:55 15 MG Lorazepam (Ativan Tab) 1 mg NOW STAT SL 07/03/17 16:55 07/03/17 17:01 DC 07/03/17 16:55 1 MG ECG Per My Interpretation Indication: chest pain Rate (beats per minute): 107 Rhythm: sinus tachycardia Findings: no acute ischemic change, other (normal axis) ED Course 1643: The patient was evaluated in room B9. A complete history and physical exam was performed. 0: I reevaluated the patient and she is feeling better. Discussed results and discharge instructions: She verbalized understanding and agreement. The patient is ready for discharge. Medical Decision I reviewed the patient's past medical history, medications, and the nursing notes as described above. Differential diagnosis: Etiologies such as cardiac ischemia, aortic dissection, pulmonary embolism, pneumonia, pneumothorax, musculoskeletal, infections, pericarditis, myocarditis , esophageal rupture, gastrointestinal, as well as others were entertained. The patient is a 56 yo woman with a pmhx of Gitelman syndrome, HTN, GERD and anxiety presents to the emergency department with intermittent CP per HPI. On arrival the patient is anxious appearing but in NAD, AF, HR 100s but VSS. EKG unremarkable. Troponin negative. CXR negative. Labs otherwise unremarkable. Heart score, 2, low risk. ACS not likely. No hypoxia and intermittent nature of sx makes PE unlikely. Sx resolved after IVF, toradol, and ativan. HR improved to 70s. Findings and plan for follow-up reviewed with patient. Patient agreeable and d/c'd per discharge instructions. Medication Reconcilliation Current Medication List: was personally reviewed by me Impression Primary Impression: Chest pain Scribe Attestation The scribe's documentation has been prepared under my direction and personally reviewed by me in its entirety. I confirm that the note above accurately reflects all work, treatment, procedures, and medical decision making performed by me. Departure Information Dispostion Home / Self-Care Referrals No Doctor, Assigned (PCP) Patient Instructions ED Chest Pain Atypical Unkn Cause, My [facility] Additional Instructions Please follow up with your primary care physician in the next 1-3 days for re- evaluation. The cause of your symptoms are unclear at this time however they be due to mild dehydration and also your anxiety. Otherwise, your exam, EKG, chest xray, and lab results did not show signs of an emergent condition at this time. Drink plenty of fluids to ensure hydration. Return to the emergency department for worsening symptoms as described in the accompanying instructions.
[2017-07-03 17:23] LABS: BASO % 0.4 %; BASO ABS # 0.03 K/uL (0-0.2); EOS % 0.3 %; EOS ABS # 0.02 K/uL (0-0.5); HEMATOCRIT 43.1 % (37-47); HEMOGLOBIN 15.3 g/dL (12.0-16.0); IG# 0.01 K/uL (0.00-0.02); LYMPH ABS # 3.24 K/uL (1.2-3.4); MEAN CELL VOLUME 87.4 fL (80-100); MEAN CORPUSCULAR HGB CONC 35.5 g/dl (32-36); MEAN PLATELET VOLUME 11.1 fL (7.4-10.4); MONO ABS # 0.81 K/uL (0.11-0.59); NEUT % 44.2 %; NEUT ABS # 3.26 K/uL (1.4-6.5); PLATELET COUNT 293 K/uL (130-400); RED CELL DISTRIBUTION WIDTH CV 12.4 % (11.5-14.5); RED CELL DISTRIBUTION WIDTH SD 39.7 fL (36.4-46.3); WHITE BLOOD COUNT 7.37 K/uL (4.8-10.8)
[2017-07-03 17:42] LABS: ALBUMIN 3.7 gm/dl (3.4-5.0); ALT/SGPT 47 U/L (12-78); AST/SGOT 28 U/L (15-37); BLOOD UREA NITROGEN 16 mg/dl (7-18); CALCIUM 8.7 mg/dl (8.5-10.1); CARBON DIOXIDE 24 mmol/L (21-32); CREATININE 0.81 mg/dl (0.60-1.20); GLUCOSE 101 mg/dl (70-99); LIPASE 173 U/L (73-393); POTASSIUM 3.2 mmol/L (3.5-5.1); SODIUM 136 mmol/L (136-145)
[2017-07-03 17:46] LABS: ALKALINE PHOSPHATASE 97 U/L (45-117); TOTAL PROTEIN 8.2 gm/dl (6.4-8.2)
--- NOTE | 2017-07-03 17:50 | DIAGNOSTIC IMAGING REPORT ---
CHEST ONE VIEW PORTABLE HISTORY: Atypical CHEST PAIN COMPARISON: Chest 05/17/2017. FINDINGS: The lungs are clear. Cardiac silhouette is normal in size. No pleural effusions. No pneumothorax. IMPRESSION: No acute process. Electronically signed by: Luis Antonio Pizano M.D. 07/03/2017 5:48 PM Dictated Date/Time: 07/03/2017 5:48 PM
[2017-07-03 19:19] VITALS: BP 134/76; PULSE 75; O2SAT 98
== END 2017-07-03 19:42 | disposition home or self-care (01) ==
LOC: C.EDB 16:39
DX: R07.9 Chest pain, unspecified (principal); R00.0 Tachycardia, unspecified; F41.1 Generalized anxiety disorder; F32.9 Major depressive disorder, single episode, unspecified; N25.89 Other disorders resulting from impaired renal tubular function; I10 Essential (primary) hypertension; E87.6 Hypokalemia; Z86.19 Personal history of other infectious and parasitic diseases; Z87.891 Personal history of nicotine dependence; Z83.3 Family history of diabetes mellitus; Z82.49 Family history of ischemic heart disease and other diseases of the circulatory system; Z84.1 Family history of disorders of kidney and ureter; Z91.041 Radiographic dye allergy status; Z88.0 Allergy status to penicillin; Z88.1 Allergy status to other antibiotic agents; Z88.8 Allergy status to other drugs, medicaments and biological substances; Z91.040 Latex allergy status; Z88.2 Allergy status to sulfonamides; Z88.5 Allergy status to narcotic agent

== ENCOUNTER → 2017-12-27 | Outpatient (CLI) | payer OTHER ==
[~2017-12-27] MED LIST changes: -ALL180 PO; -DSY50 PO; -FERR1TAB62 PO; -MULT-506 PO; +POTA-639 PO; -POTA20TA16 PO; -SPIR50TA3 PO; +SPIR50TA5 PO; +TRAZ1TAB49 PO
== END | disposition home or self-care (01) ==
LOC: C.LABPBG 13:42
PROVIDERS: ATTEND Family Medicine
DX: R10.9 Unspecified abdominal pain (principal)

== ENCOUNTER → 2018-01-04 | Outpatient (CLI) | payer OTHER ==
--- NOTE | 2018-01-04 10:44 | DIAGNOSTIC IMAGING REPORT ---
CT OF THE ABDOMEN AND PELVIS WITHOUT CONTRAST CLINICAL HISTORY: Acute right flank pain. Hematuria. COMPARISON STUDY: CT of the abdomen and pelvis July 08, 2016. TECHNIQUE: Axial images of the abdomen and pelvis were obtained without IV contrast. Images were reviewed in the axial, sagittal, and coronal planes. A dose lowering technique was utilized adhering to the principles of ALARA. FINDINGS: Lung bases are clear. A 8 mm hypodense left hepatic lobe lesion is suboptimally assessed on this unenhanced exam but is unchanged. This is benign. This favors a cyst. The spleen, adrenal glands and pancreas are unremarkable this unenhanced exam. The gallbladder is not visualized. There is no biliary ductal dilatation. There is no evidence for a bowel obstruction. The appendix is normal. Note is made of sigmoid diverticulosis without evidence for acute diverticulitis. No renal, ureteral or bladder calculi are present. There are no suspicious osseous lesions. IMPRESSION: 1. No urinary calculi or hydronephrosis. 2. No bowel obstruction. Normal appendix. 3. Sigmoid diverticulosis without evidence for acute diverticulitis. Electronically signed by: Tj Blunt M.D. 01/04/2018 10:43 AM Dictated Date/Time: 01/04/2018 10:16 AM
== END | disposition home or self-care (01) ==
LOC: C.CTS 09:58
PROVIDERS: ATTEND Family Medicine
DX: R31.9 Hematuria, unspecified (principal); R10.9 Unspecified abdominal pain; K57.30 Diverticulosis of large intestine without perforation or abscess without bleeding

== ENCOUNTER 2023-03-17 17:07 | Observation (INO) ==
[2023-03-17 17:32] LABS: Basophils # (auto) 0.06 K/uL (0.00-0.20); Basophils % (auto) 0.7 %; Eosinophils # (auto) 0.14 K/uL (0.00-0.50); Eosinophils % (auto) 1.6 %; Hematocrit (blood only) 40.7 % (37.0-47.0); Immature Granulocytes # (auto) 0.03 K/uL (0.01-0.20); Immature Granulocytes % (auto) 0.3 %; Lymphocytes # (auto) 1.47 K/uL (1.20-3.40); Lymphocytes % (auto) 16.8 %; Mean Corpuscular Hemoglobin 30.4 pg (25.0-34.0); Mean Corpuscular Hgb Conc 34.4 g/dL (32.0-36.0); Mean Corpuscular Volume 88.3 fL (80.0-100.0); Mean Platelet Volume 10.5 fL (9.4-12.4); Monocytes # (auto) 0.64 K/uL (0.11-0.59); Monocytes % (auto) 7.3 %; Neutrophils # (auto) 6.41 K/uL (1.40-6.50); Neutrophils % (auto) 73.3 %; Platelet Count 313 K/uL (130-400); RDW Coefficient of Variation 12.2 % (11.5-14.5); RDW Standard Deviation 39.7 fL (36.4-46.3); Red Blood Count 4.61 M/uL (4.20-5.40); White Blood Count 8.75 K/ul (4.8-10.8)
[2023-03-17 17:48] LABS: Albumin Globulin Ratio 1.1 (0.9-2); Albumin Level 4.4 gm/dl (3.4-5.0); BUN Creatinine Ratio 9.6 (10-20); Bilirubin,Total 0.5 mg/dl (0.2-1.0); Calcium 9.5 mg/dl (8.6-10.3); Creatinine Clr Calc Pharmacy 47.7 ml/min; Est GFR (African American) 74.8 ml/min; Est GFR (Non-African American) 64.6 ml/min; Globulin 3.9 gm/dl (2.5-4.0); Potassium 3.9 mmol/L (3.5-5.1); Total Protein 8.3 gm/dl (6.0-8.3)
[2023-03-17] MEDS ORDERED: ACETAMINOPHEN 1,000 MG/100 ML VIAL IV STA (18:33)
[2023-03-17] MEDS ORDERED: KETOROLAC TROMETHAMINE 15 MG/ML VIAL IV ONE (18:34)
[2023-03-17] MEDS ORDERED: ONDANSETRON INJ 2 MG/ML 2 ML VIAL IV STA (18:34)
[2023-03-17] MEDS ORDERED: LIDOCAINE 5% 1 PATCH TD STA (18:34)
--- NOTE | 2023-03-17 18:46 | Emergency Department Note ---
Impression & Plan Intractable abdominal pain ED Provider Note NAME: LEONARDO REA AGE: 62 SEX: F : 1960 ARRIVES VIA: Walk-In INFORMANT: Patient, ED PROVIDER(S): Jose Kidd MD CHIEF COMPLAINT: Flank pain HPI: This is a 62-year-old female presenting for left flank/back pain. Patient states that she was here yesterday for the same complaints. She states that the pain has been going on for 4+ months. Patient notes it is been worse in the past 1 week and excruciating with past 1 day. She was seen yesterday with negative CT imaging, blood work, EKG and troponin. She was discharged and since being discharged has had persistent pain despite opiate pain medication. She states she was up all night vomiting from the pain. She presents today at the behest of her PCP who sent her back in. At this time she has no change in her pain, no new symptoms, changing symptoms. She has excruciating pain to her left flank rating into her abdomen. ROS: See above HPI for pertinent positives & negatives. A total of 10 systems reviewed and were otherwise negative. PAST MEDICAL HISTORY: See Below PAST SURGICAL HISTORY: See Below FAMILY HISTORY: See Below SOCIAL HISTORY: See Below HOME MEDICATIONS: See Below ALLERGIES: See Below VITALS: See Below PHYSICAL EXAMINATION: General: resting comfortably in no acute distress Head: Normocephalic and atraumatic Eyes: Normal inspection, extraocular muscles intact, no conjunctival pallor Ear, nose, throat: Normal external exam Neck: Normal range of motion Respiratory: Patient is in no respiratory distress, lungs clear to auscultation bilaterally Cardiovascular: RRR without murmur appreciated GI: soft, nontender, no guarding or rebound, tender to palpation of the left back, flank and abdomen Extremities: pulses intact with good cap refills, no LE pitting edema or calf tenderness Neuro: The patient awake and alert, appropriately conversive,no focal decifits Skin: Warm, dry, and intact MEDICAL DECISION MAKING: This is a 62-year-old female presenting for recurrent left flank/back pain. Patient had a screening work-up done yesterday with negative CT imaging, troponin, EKG as per my record review. Otherwise she has no change symptoms we will give pain medicine at this time as well as antinausea medicine. Will admit for intractable pain and nausea/vomiting. Lab work reviewed by me showing no significant change, no significant abnormalities at baseline Triage Nursing notes reviewed. Prior medical records reviewed Vital Signs: reviewed and remarkable for no significant abnormalities ER treatment provided: See below Diagnostics interpreted by me: ECG: ECG independently interpreted by me with normal sinus rhythm, rate of 87,, normal TN, normal QRS, normal QTc, no ST segment elevations consistent with STEMI criteria Cardiac Monitoring: An order was placed for continuous cardiac monitoring. The monitor shows a rate of with rhythm. Laboratory studies: As stated above and show below. Consultation(s): None Past Med/Surg History Medical History (Updated 03/18/23 @ 01:11 by Jose Kidd MD) Hx of seasonal allergies "Used to use an inhaler years ago for her allergies" History of COVID-19 03/02/22, home test, not hosp; high fever, chills, nausea and diarrhea, loss taste>resolved w/exception of loss of taste Post herpetic neuralgia Peroneal tendon tear surgical repair Gitelman syndrome Diverticular disease hx IBS (irritable bowel syndrome) DDD (degenerative disc disease) Depression Anxiety Migraines hx HTN (hypertension) Iron deficiency Chronic sinusitis Acid reflux Surgical History S/P rhinoplasty S/P endometrial ablation S/P tendon repair (03/2019) L ankle History of prior ablation treatment cervix History of sinus surgery History of esophagogastroduodenoscopy (EGD) History of section History of tonsillectomy History of cholecystectomy Family History Father Family history of CABG Colorectal cancer Cardiac disorder Diabetes Hypertension Myocardial infarction Mother Colorectal cancer Cardiac disorder Diabetes Hypertension Myocardial infarction Family/Other Colorectal cancer Sister Pseudotumor cerebri Uncle Prostate cancer Denies family history of Ovarian cancer Breast cancer Social History Smoking Status: Former smoker Tobacco Type: Cigarettes Second Hand Exposure: No; Do You Dip or Chew Tobacco: No; Tobacco Cessation Education Requested by Patient: No Hx Alcohol Use: No Hx Substance Use: Yes Prescribed Medications: Marijuana Last Used Substance: Days (ago) Last Used Substance Other:: daily use Preferred Language: Khmer Communication Ability: Effective Visual Impairment: No Limitations Hearing Ability: Normal Services Clerk Required: No Beliefs That Will Affect Care: None marital status: Current Living Situation: Spouse current occupational status: disabled 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 Other Information That Helps Us Care for You: No Feels Safe at Home: Yes Safety Concerns: Feels Safe At This Time Childhood Exposure to Second-Hand Smoke: No Diet: regular Diet Comment: regular, low appetite caffeine: Yes (pepsi ) during the past year weight has: remained stable Dental Care, Regularly: Yes Physical Activity Frequency: Daily Physical Activity Frequency Comment: work Seatbelt Use: always Sunscreen Use: Yes Assistive Devices: Contacts Allergies Allergies Allergy/AdvReac Type Severity Reaction Status Date / Time amoxicillin Allergy Intermediate rash Verified 03/17/23 19:16 clavulanic acid Allergy Intermediate rash Verified 03/17/23 19:16 latex Allergy Intermediate SORES-BLIST Verified 03/17/23 19:16 ERS Sulfa (Sulfonamide Allergy Intermediate "SULFA": Verified 03/17/23 19:16 Antibiotics) UNKNOWN meperidine AdvReac Intermediate VOMITING Verified 03/17/23 19:16 morphine AdvReac Intermediate VOMITING Verified 03/17/23 19:16 blue dye AdvReac Unknown TORE Verified 03/17/23 19:16 STOMACH UP dexlansoprazole AdvReac Unknown TORE Verified 03/17/23 19:16 STOMACH UP Home Meds Home Medications Medication Instructions Recorded Confirmed vitamin B complex 1 tab PO HS ##0 12/29/13 03/17/23 soy isoflavone-black cohosh 155 mg PO HS ##0 09/28/14 03/17/23 root-magnolia bark 155 mg capsule (Estroven) multivitamin 1 tab PO HS 08/15/20 03/17/23 clonazepam 1 mg tablet (Klonopin) See Rx Instructions .Route .COMPLEX 03/16/23 03/17/23 fluoxetine 10 mg capsule 10 mg PO QAM 03/16/23 03/17/23 Previous Rx's Medication Instructions Recorded lidocaine 5 % topical ointment 1 applic topical DAILY PRN pain 02/05/20 #50 grams sumatriptan succinate 100 mg tablet 100 mg PO UD PRN Migraine Headache 07/16/21 #9 tabs ondansetron HCl 4 mg tablet 4 mg PO DAILY PRN nausea and 03/10/22 vomiting #30 tabs potassium chloride 20 mEq 20 meq PO BID #180 tabs 01/26/23 tablet,extended release(part/cryst) spironolactone 50 mg tablet 50 mg PO HS #90 tabs 01/26/23 hydrocodone 5 mg-acetaminophen 325 1 - 2 tab PO Q6H PRN pain #15 tabs 03/16/23 mg tablet lidocaine 5 % topical patch 1 patch topical DAILY #15 ea 03/16/23 (Lidoderm) ondansetron 4 mg disintegrating 4 mg PO Q6H PRN nausea and 03/16/23 tablet vomiting #20 tabs Results & Data (ED) Vital Signs Vital Signs - 24 hr 03/17/23 17:10 03/17/23 19:27 Temperature 36.8 C Temperature Source Temporal Artery Scan Pulse Rate 99 H Pulse Rate [Bilateral] 86 Respiratory Rate 18 18 Blood Pressure 130/78 Blood Pressure [Left Arm] 151/107 H Blood Pressure Mean 95 Blood Pressure Mean [Left Arm] 121 Pulse Oximetry 98 96 Oxygen Delivery Method Room Air Room Air Sepsis Recent Fever Within 48 Hours No Sepsis New/Unexplained Change in Mental Status No Sepsis Action Taken by Nursing No Action Required Laboratory Data 03/17/23 17:17 03/17/23 17:17 Lab Results 03/17/23 Range/Units 17:17 WBC 8.75 (4.8-10.8) K/ul RBC 4.61 (4.20-5.40) M/uL Hgb 14.0 (12.0-16.0) g/dl Hct 40.7 (37.0-47.0) % MCV 88.3 (80.0-100.0) fL MCH 30.4 (25.0-34.0) pg MCHC 34.4 (32.0-36.0) g/dL RDW Std Deviation 39.7 (36.4-46.3) fL RDW Coeff of Soni 12.2 (11.5-14.5) % Plt Count 313 (130-400) K/uL MPV 10.5 (9.4-12.4) fL Immature Gran % (Auto) 0.3 % Neut % (Auto) 73.3 % Lymph % (Auto) 16.8 % [place] % (Auto) 7.3 % Eos % (Auto) 1.6 % Baso % (Auto) 0.7 % Neut # (Auto) 6.41 (1.40-6.50) K/uL Lymph # (Auto) 1.47 (1.20-3.40) K/uL [place] # (Auto) 0.64 H (0.11-0.59) K/uL Eos # (Auto) 0.14 (0.00-0.50) K/uL Baso # (Auto) 0.06 (0.00-0.20) K/uL Immature Gran # (Auto) 0.03 (0.01-0.20) K/uL Sodium 137 (136-145) mmol/L Potassium 3.9 (3.5-5.1) mmol/L Chloride 102 (98-107) mmol/L Carbon Dioxide 26 (21-32) mmol/L Anion Gap 9 (3-11) BUN 9 (6-23) mg/dl Creatinine 0.94 (0.6-1.2) mg/dl Est Cr Clr Drug Dosing 47.7 ml/min Est GFR ( Amer) 74.8 ml/min Est GFR (Non-Af Amer) 64.6 ml/min BUN/Creatinine Ratio 9.6 L (10-20) Glucose 102 H (70-99(Fasting)) mg/dl Calcium 9.5 (8.6-10.3) mg/dl Phosphorus 3.4 (2.5-4.9) mg/dl Magnesium 2.1 (1.7-2.4) mg/dl Total Bilirubin 0.5 (0.2-1.0) mg/dl AST 15 (13-39) U/L ALT 11 (7-52) U/L Alkaline Phosphatase 86 (34-104) U/L Total Protein 8.3 (6.0-8.3) gm/dl Albumin 4.4 (3.4-5.0) gm/dl Globulin 3.9 (2.5-4.0) gm/dl Albumin/Globulin Ratio 1.1 (0.9-2) Lipase 6 L (11-82) U/L Administered Medications Clonazepam (Clonazepam 1 Mg Tab) 1 mg PO HS DIAMOND Stop: 04/16/23 23:07 Last Admin: 03/18/23 00:35 Dose: 1 mg Documented By: AAH Ondansetron HCl (Ondansetron Inj 2 Mg/Ml 2 Ml Vial) 4 mg IV Q6H PRN PRN Reason: nausea or vomiting Stop: 04/16/23 20:14 Last Admin: 03/17/23 23:43 Dose: 4 mg Documented By: BETITO Potassium Chloride (Potassium Chloride Crtab 20 Meq Tabcr) 20 meq PO BID DIAMOND Stop: 04/16/23 23:07 Last Admin: 03/18/23 00:17 Dose: 20 meq Documented By: BETITO Spironolactone (Spironolactone 25 Mg Tab) 50 mg PO HS DIAMOND Stop: 04/16/23 23:07 Last Admin: 03/18/23 00:16 Dose: 50 mg Documented By: BETITO Discontinued Medications Acetaminophen (Ofirmev) 1,000 mg in 100 mls @ 400 mls/hr IV NOW STA Stop: 03/17/23 18:47 Last Infusion: 03/17/23 21:04 Dose: Infused Documented By: Admin: 03/17/23 19:22 Dose: 400 mls/hr Documented By: JAVIER Lactated Ringer's (Lr) 1,000 mls @ 999 mls/hr IV .Q1H1M ONE Stop: 03/17/23 21:02 Last Infusion: 03/18/23 00:40 Dose: Infused Documented By: Admin: 03/17/23 22:53 Dose: 999 mls/hr Documented By: JAVIER Ketorolac Tromethamine (Ketorolac Tromethamine 15 Mg/Ml Vial) 15 mg IV NOW ONE Stop: 03/17/23 18:35 Last Admin: 03/17/23 19:21 Dose: 15 mg Documented By: JAVIER Lidocaine (Lidocaine 5% 1 Patch) 1 patch TD NOW STA Stop: 03/17/23 18:35 Last Admin: 03/17/23 19:22 Dose: 1 patch Documented By: JAVIER Miscellaneous (Remove Lidoderm Patch) 1 each N/A DAILY@2100 DIAMOND Stop: 04/16/23 20:59 Last Admin: 03/17/23 21:06 Dose: Not Given Documented By: JAVIER Ondansetron HCl (Ondansetron Inj 2 Mg/Ml 2 Ml Vial) 4 mg IV NOW STA Stop: 03/17/23 18:35 Last Admin: 03/17/23 19:22 Dose: 4 mg Documented By: JAVIER Tramadol HCl (Tramadol Hcl 50 Mg Tablet) 50 mg PO NOW STA Stop: 03/17/23 20:04 Last Admin: 03/17/23 21:23 Dose: 50 mg Documented By: EMB Discharge Plan Visit Data Chief Complaint: Back Injury/Pain Stated Complaint: BACK PAIN ED Provider: Jose Kidd Discharge Problem: Intractable abdominal pain Patient Disposition: Admitted As Inpatient Discharge Instructions Interventions: ED Discharge Assessment Last Done: 03/17/23 22:42
--- NOTE | 2023-03-17 19:25 | History & Physical Report ---
Date of Service March 17, 2023 Assessment & Plan (1) Chronic radicular pain of lower back: Plan: -Admit to med/surge -At this time the patient's symptoms are most consistent with radicular nerve pain as she describes it as burning, originating on the right lumbar spine, and radiates to the RUQ -No signs of trauma, infection, rash to suggest other etiology at this time -Pain did not respond to Toradol, tylenol, and lidocaine patch in the ED -Patient initially was refusing narcotics as she was having nausea with fentanyl she received last night, thinks she can tolerate tramadol -Will give a trial dose of 50 mg tramadol now -Would typically start a trial of Gabapentin or Lyrica on admission, however, patient reports a significant allergy in the past. If still convinced her pain is neurologic in nature tomorrow could consider starting another medication such as Cymbalta or a tricyclic antidepressant -Will obtain MRI of the thoracic and lumbar spine overnight for further evaluation -Pain management consult placed, appreciate their assistance -If tramadol is tolerated will continue prn dosing -Will start BL SCD's for DVT ppx in case of possible procedure tomorrow -Regular diet -AM CBC, bmp (2) HTN (hypertension): Plan: -Stable -Continue spironolactone (3) Anxiety: Plan: -Continue fluoxetine, and prn Klonopin (4) Depression: Plan: -Continue fluoxetine Plan The patient was discussed with Dr. Jolly at the time of the admission History of Present Illness Chief Complaint: Uncontrolled pain, nausea, and vomiting Primary Care Provider: DO Subha Lamas is a 62 year old female with a PMH significant for anxiety/depression, acid reflux, esophageal dysphagia, HTN, IBS, and chronic pain who presented to the [facility] ED on 03/17 for ongoing right back/abdominal pain, nausea, and vomiting. This is the patient's 2nd ED visit in the past 24 hours for the same symptoms. On 03/16 she was evaluated and remained stable. CBC, CMP, Cardiac workup, and UA were unremarkable. CTA of the chest was read as "1. No evidence for a pulmonary embolus. 2. Interval development of mediastinal, left hilar, and lower cervical lymphadenopathy as described above. This could be due to inflammatory/infectious process. However, a neoplastic process remains the diagnosis of exclusion. Follow-up nonemergent oncology consultation recommended. In addition, [address] follow-up can be performed to evaluate for stability/resolution. 3. A 1 cm peripheral groundglass airspace opacity within the right upper lobe. This favors a small focus of inflammatory/infectious change. Attention at follow-up recommended to ensure resolution. 4. Mild bronchial wall thickening suggestive of a bronchitis with mild air trapping within the lungs.". CT of the abd/pelvis with IV con was read as "No acute infectious or inflammatory findings are identified in the abdomen or pelvis.". While in the ED she received a total of 3 doses, 50 mcg IV fentanyl, 1.25L NSS, and a dose of zofran prior to discharge. At the time of the exam the patient was sitting in bed and appears uncomfortable, her was bedside, history was obtained from both. She states that she has had chronic pain starting in her right low back with radiation around her right flank and to the RUQ. She describes the pain as constant, burning, and currently a 10/10. She explains that she has had the pain since 1993; she denies any associated trauma before developing the pain. Initially her pain was so severe that her PCP in [place] called a surgeon in for emergent cholecystectomy. However, she and her state that when the surgeon took her to the OR she was found to be without a gallbladder. She states, "the surgeon told me that it just looked like old rubber bands where my gallbladder used to be". When clarifying with the patient and her , they state that there was reportedly imaging of her gallbladder prior to be taken to the OR that concerned the Physicians enough to take her to the OR. The pain has waxed and waned over the years but has been much more severe over the past 2 weeks. She went to her PCP on 03/10 for the same symptoms. Per the PCP's clinic note, there were no acute findings on exam to warrant ED visit at that time. They were attempting to do her workout outpatient but she could not tolerate the pain, leading to her ED visit on 03/16. During my discussions with the patient and her they mentioned an epis ode of shingles on the left back/abdomen. They state that it was in the same general location as her current pain. She states that she was started on gabapentin at that time but was taken off as she had an adverse reaction which she describes as "numbness in my mouth". When asked, she and her state that she was seen by Pain Management in [place] and received either injections or a nerve ablation that significantly improved her pain. When asked about radicular symptoms she states that she initially had sharp/shooting pain down the right leg when her back was exacerbated 2 weeks ago, but this is no longer present. She denies current tobacco or alcohol use. She does use medical marijuana for her anxiety. She states that the narcotics she received in the ED and on discharge yesterday made her very nauseous. She thinks that she tolerated tramadol in the past. She is interested in seeing pain management again for possible treatments. She again denies any recent trauma. She is a full code and would want her to make medical decisions for her if she cannot make them herself. Please refer to Dr. Jolly's attestation Allergies Allergy/AdvReac Type Severity Reaction Status Date / Time amoxicillin Allergy Intermediate rash Verified 03/17/23 19:16 clavulanic acid Allergy Intermediate rash Verified 03/17/23 19:16 latex Allergy Intermediate SORES-BLIST Verified 03/17/23 19:16 ERS Sulfa (Sulfonamide Allergy Intermediate "SULFA": Verified 03/17/23 19:16 Antibiotics) UNKNOWN meperidine AdvReac Intermediate VOMITING Verified 03/17/23 19:16 morphine AdvReac Intermediate VOMITING Verified 03/17/23 19:16 blue dye AdvReac Unknown TORE Verified 03/17/23 19:16 STOMACH UP dexlansoprazole AdvReac Unknown TORE Verified 03/17/23 19:16 STOMACH UP Home Medications Medication Instructions Recorded Confirmed Type vitamin B complex 1 tab PO HS ##0 12/29/13 03/17/23 History soy isoflavone-black cohosh 155 mg PO HS ##0 09/28/14 03/17/23 History root-magnolia bark 155 mg capsule (Estroven) lidocaine 5 % topical ointment 1 applic topical DAILY PRN pain 02/05/20 03/17/23 Rx #50 grams multivitamin 1 tab PO HS 08/15/20 03/17/23 History sumatriptan succinate 100 mg tablet 100 mg PO UD PRN Migraine Headache 07/16/21 03/17/23 Rx #9 tabs ondansetron HCl 4 mg tablet 4 mg PO DAILY PRN nausea and 03/10/22 03/17/23 Rx vomiting #30 tabs potassium chloride 20 mEq 20 meq PO BID #180 tabs 01/26/23 03/17/23 Rx tablet,extended release(part/cryst) spironolactone 50 mg tablet 50 mg PO HS #90 tabs 01/26/23 03/17/23 Rx clonazepam 1 mg tablet (Klonopin) See Rx Instructions .Route .COMPLEX 03/16/23 03/17/23 History fluoxetine 10 mg capsule 10 mg PO QAM 03/16/23 03/17/23 History hydrocodone 5 mg-acetaminophen 325 1 - 2 tab PO Q6H PRN pain #15 tabs 03/16/23 03/17/23 Rx mg tablet lidocaine 5 % topical patch 1 patch topical DAILY #15 ea 03/16/23 03/17/23 Rx (Lidoderm) ondansetron 4 mg disintegrating 4 mg PO Q6H PRN nausea and 03/16/23 03/17/23 Rx tablet vomiting #20 tabs Past Med/Surg History Medical History (Updated 03/18/23 @ 01:11 by Jose Kidd MD) Hx of seasonal allergies "Used to use an inhaler years ago for her allergies" History of COVID-19 03/02/22, home test, not hosp; high fever, chills, nausea and diarrhea, loss taste>resolved w/exception of loss of taste Post herpetic neuralgia Peroneal tendon tear surgical repair Gitelman syndrome Diverticular disease hx IBS (irritable bowel syndrome) DDD (degenerative disc disease) Depression Anxiety Migraines hx HTN (hypertension) Iron deficiency Chronic sinusitis Acid reflux Surgical History S/P rhinoplasty S/P endometrial ablation S/P tendon repair (03/2019) L ankle History of prior ablation treatment cervix History of sinus surgery History of esophagogastroduodenoscopy (EGD) History of section History of tonsillectomy History of cholecystectomy Family History Father Family history of CABG Colorectal cancer Cardiac disorder Diabetes Hypertension Myocardial infarction Mother Colorectal cancer Cardiac disorder Diabetes Hypertension Myocardial infarction Family/Other Colorectal cancer Sister Pseudotumor cerebri Uncle Prostate cancer Denies family history of Ovarian cancer Breast cancer Social History Smoking Status: Former smoker Tobacco Type: Cigarettes Second Hand Exposure: No; Do You Dip or Chew Tobacco: No; Tobacco Cessation Education Requested by Patient: No Hx Alcohol Use: No Hx Substance Use: Yes Prescribed Medications: Marijuana Last Used Substance: Days (ago) Last Used Substance Other:: daily use Preferred Language: Greenlandic Communication Ability: Effective Visual Impairment: No Limitations Hearing Ability: Normal Rn Med Surg Required: No Beliefs That Will Affect Care: None marital status: Current Living Situation: Spouse current occupational status: disabled 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 Other Information That Helps Us Care for You: No Feels Safe at Home: Yes Safety Concerns: Feels Safe At This Time Childhood Exposure to Second-Hand Smoke: No Diet: regular Diet Comment: regular, low appetite caffeine: Yes (pepsi ) during the past year weight has: remained stable Dental Care, Regularly: Yes Physical Activity Frequency: Daily Physical Activity Frequency Comment: work Seatbelt Use: always Sunscreen Use: Yes Assistive Devices: None Physical Exam Physical Exam: Physical Exam: General: Uncomfortable, stated age, well-nourished, good hygiene, non-toxic appearing HEENT: Normocephalic, atraumatic, no scleral icterus, pupils around round, symmetrical, and reactive to light, moist mucus membranes, trachea midline, no thyromegaly Chest/Pulm: No respiratory distress, symmetrical chest expansion, clear breath sounds throughout Cardiac: RRR, no murmurs noted Abdomen: Negative for ascites and bruising, normoactive bowel sounds, soft, non-tender to palpation throughout Musculoskeletal: No obvious signs of trauma on inspection of the entire spine, right flank/right abdomen, significant pain to palpation of the thoracic and lumbar spine without crepitus or fluctuance, significant pain with palpation of the right flank/lower ribs without acute trauma, full ROM of the BL upper and lower extremities with symmetrical strength, no atrophy, flaccidity, or spasticity Extremities: Radial, dorsalis pedis, and posterior tibial pulses are intact and symmetrical, no edema noted in the BL LE's Skin: Warm, dry, no rashes , lesions, or scars noted Neuro: Alert and oriented to person, place, month, year, and president, no focal defects, CN II-XII tested and intact, no tremors noted Psych: Uncomfortable, anxious, but polite and cooperative during the exam Results & Data Results & Data Vital Signs (Past 12 Hours) Vital Signs Temp Pulse Resp BP Pulse Ox O2 Del Method 03/17/23 17:10 36.8 C 99 H 18 130/78 98 Room Air Laboratory Results Abnormal lab results 03/17/23 Range/Units 17:17 [place] # (Auto) 0.64 H (0.11-0.59) K/uL BUN/Creatinine Ratio 9.6 L (10-20) Glucose 102 H (70-99(Fasting)) mg/dl Lipase 6 L (11-82) U/L Code Status & VTE Plan Code Status Full Code VTE Prophylaxis Plan VTE Prophylaxis will be ordered: Yes Supervising Physician Co-Signing Physician Notes I personally saw and examined the patient. I verified all lemus points and agree with Rocael Nino PA-C with the following exceptions and/or additions: 62 year old female presents to the ER with right sided back and abdominal pain. Presented to the ER yesterday with similar symptoms. Difficult to get a straight history from the patient as she jumps from symptoms she has previously happening to her current symptoms and does not give a straight timeline. Although generally appears to be an acute on chronic pain. Similar to a pain she had on her left side in this area treated successfully by pain management in [place] with an injection - unclear if trigger point or GÉNESIS - she reports a diagnosis of shingles causing this pain although she never had a rash. O/E HS RRR, no murmurs, Chest CTAB, Abdo left sided generalized tenderness on even light palpation with guarding but no rebound tenderness, she reports light touch feels good but as soon as the smallest pressure is applied she tenses up with pain. Worse pain is paraspinal around L2 area on right side but she reports radiation to T10 area anteriorly A/P Neuropathic pain - her pain is most likely neuropathic vs. from muscular spasms. Given her quick return to the ER and inability to cope at home with this will observe overnight to try to get pain under control and consult pain management for consideration of inpatient trigger point injection. MRI lumbar and thoracic spine to assess for acute nerve compression to see if GÉNESIS would be helpful. PG Care Time/CCT Total # of Minutes Spent Total Time Spent with Patient: Total time spent is greater than 50% in coordination of care (as documented) at patient's floor/unit and/or counseling patient: C[place] [address] INT INP/OBS CARE 2/55MIN Patient Type Established Medical Decision Making Moderate Complexity Diagnoses Chronic radicular pain of lower back M54.16; G89.29 HTN (hypertension) I10 Anxiety F41.9 Depression F32.9
[2023-03-17 19:51] LABS: Magnesium 2.1 mg/dl (1.7-2.4); Phosphorus 3.4 mg/dl (2.5-4.9)
[2023-03-17] MEDS ORDERED: LACTATED RINGER'S 1,000 ML IV ONE (20:02)
[2023-03-17] MEDS ORDERED: traMADol HCL 50 MG TABLET PO STA (20:03)
--- NOTE | 2023-03-17 23:09 | Magnetic Resonance Report ---
Exam(s): MRI T SPINE Without Contrast EXAM: MR Thoracic Spine Without Intravenous Contrast CLINICAL HISTORY: Reason for exam: radicular back/side pain. TECHNIQUE: Magnetic resonance images of the thoracic spine without intravenous contrast in multiple planes. COMPARISON: No relevant prior studies available. FINDINGS: Vertebrae: There is normal vertebral body height and alignment. T1 and T2 dark lesions in the T3, T5 and T6 vertebral bodies, which are nonspecific. Focal fat or venous malformation within the T11 vertebral body. No acute fracture. Discs/spinal canal/neural foramina: Moderate disc degeneration at T6-7 with annular disc bulge flattening the ventral cord without evidence of a mild cord signal. No acute findings. No significant disc disease. No spinal canal stenosis. Spinal cord: Prominence of the central canal at T4-T7.. Normal signal. Soft tissues: Unremarkable. IMPRESSION: No evidence of acute thoracic spine pathology. Nonspecific T1 and T2 dark lesions in the T3, T5 and T6 vertebral bodies, concerning for bone marrow replacement process. Recommend postcontrast imaging for further evaluation. Electronically signed by: Chela Gibbs MD 03/17/23 23:08 PM
[2023-03-17] MEDS: ONDANSETRON INJ 2 MG/ML 2 ML VIAL IV PRN (23:43)
--- NOTE | 2023-03-17 23:56 | Magnetic Resonance Report ---
Exam(s): MRI L SPINE Without Contrast EXAM: MR Lumbar Spine Without Intravenous Contrast CLINICAL HISTORY: Reason for exam: radicular back/side pain. TECHNIQUE: Magnetic resonance images of the lumbar spine without intravenous contrast in multiple planes. COMPARISON: Comparison made to prior lumbar spine MRI from July 29, 2015. FINDINGS: Vertebrae: There are 5 lumbar type vertebral bodies with a mild generalized curve to the left and straightening of the normal lumbar lordosis. There is normal vertebral body height and alignment. The bone marrow signal is heterogeneous with reactive endplate changes at L5-S1. No acute fracture. Spinal cord: The conus is normal size, shape and signal characteristics, terminating at L1-L2. Soft tissues: Moderate to advanced atrophy of the iliopsoas, paraspinous intraspinous musculature. The aortic and IVC flow voids are intact. The visualized kidneys are unremarkable. DISCS/SPINAL CANAL/NEURAL FORAMINA: L1-L2: There are intervertebral disc is normal. There is mild facet arthropathy with mild synovitis. L2-L3: Moderate disc degeneration with annular disc bulge asymmetric to the right causing a mild subarticular recess stenosis, with disc extending to the neural foramina without impingement or significant stenosis. There is minimal to mild facet arthropathy with mild synovitis. L3-L4: Moderate disc degeneration with annular disc bulge asymmetric to the left causing a mild subarticular recess stenosis, with disc extending to the neural foramina without impingement or significant stenosis. There is mild facet joint arthropathy with mild to moderate synovitis. L4-L5: There is mild disc degeneration with annular disc bulge asymmetric to the left causing mild subarticular recess stenosis, disc extending to the neural foramina causing a mild right stenosis without evidence of neural impingement. There is mild facet joint arthropathy with mild synovitis. L5-S1: Advanced disc degeneration with annular disc bulge asymmetric to the left flattening the ventral thecal sac, with disc and osteophyte extending to the neural foramina causing mild bilateral stenosis without evidence of neural impingement. There is minimal right and mild left facet arthropathy with mild synovitis. IMPRESSION: 1. Advanced disc degeneration at L5-S1 with moderate disc degeneration at L2-3, L3-4 and mild disc degeneration at L4-5 with annular disc bulging flattening the ventral thecal sac and causing mild subarticular recess stenosis at L2-3, L3-4 and L4-5 without evidence of neural impingement. 2. There is no spinal canal stenosis. 3. There is a mild right L4-5 and mild bilateral L5-S1 neural foraminal stenosis without evidence of neural impingement. 4. There is minimal to mild facet arthropathy with mild to moderate synovitis, most significant at L3-4. 5. No evidence of fracture, infection, tumor or arachnoiditis. Electronically signed by: Chela Gibbs MD 03/17/23 23:54 PM
[2023-03-18] MEDS: SPIRONOLACTONE 25 MG TAB PO SCH ×2 (00:16→22:18)
[2023-03-18] MEDS: POTASSIUM CHLORIDE CRTAB 20 MEQ TABCR PO SCH ×3 (00:17→20:20)
[2023-03-18] MEDS: clonazePAM 1 MG TAB PO SCH ×2 (00:35→20:20)
[2023-03-18] MEDS: traMADol HCL 50 MG TABLET PO PRN ×3 (01:32→17:12)
[2023-03-18] MEDS ORDERED: ONDANSETRON INJ 2 MG/ML 2 ML VIAL IV STA (01:48)
[2023-03-18] MEDS ORDERED: ACETAMINOPHEN 1,000 MG/100 ML VIAL IV PRN (01:48)
[2023-03-18] MEDS ORDERED: ACETAMINOPHEN 325 MG TAB PO SCH (02:00)
[2023-03-18] MEDS: KETOROLAC TROMETHAMINE 15 MG/ML VIAL IV PRN ×3 (03:07→20:20)
[2023-03-18 07:55] LABS: Basophils # (auto) 0.03 K/uL (0.00-0.20); Basophils % (auto) 0.4 %; Eosinophils # (auto) 0.01 K/uL (0.00-0.50); Eosinophils % (auto) 0.1 %; Hematocrit (blood only) 38.7 % (37.0-47.0); Hemoglobin 13.1 g/dl (12.0-16.0); Immature Granulocytes # (auto) 0.14 K/uL (0.01-0.20); Immature Granulocytes % (auto) 1.8 %; Lymphocytes # (auto) 0.69 K/uL (1.20-3.40); Lymphocytes % (auto) 8.8 %; Mean Corpuscular Hgb Conc 33.9 g/dL (32.0-36.0); Mean Corpuscular Volume 88.8 fL (80.0-100.0); Mean Platelet Volume 11.2 fL (9.4-12.4); Monocytes # (auto) 0.38 K/uL (0.11-0.59); Monocytes % (auto) 4.8 %; Neutrophils # (auto) 6.62 K/uL (1.40-6.50); Neutrophils % (auto) 84.1 %; Platelet Count 268 K/uL (130-400); RDW Standard Deviation 39.2 fL (36.4-46.3); Red Blood Count 4.36 M/uL (4.20-5.40); White Blood Count 7.87 K/ul (4.8-10.8)
[2023-03-18 08:05] LABS: BUN Creatinine Ratio 15.5 (10-20); Calcium 8.9 mg/dl (8.6-10.3); Creatinine Clr Calc Pharmacy 53.4 ml/min; Est GFR (African American) 85.7 ml/min; Magnesium 2.1 mg/dl (1.7-2.4); Potassium 3.7 mmol/L (3.5-5.1)
[2023-03-18] MEDS: ONDANSETRON INJ 2 MG/ML 2 ML VIAL IV PRN (08:18)
[2023-03-18] MEDS: FLUoxetine HCL 10 MG CAP PO SCH (08:19)
[2023-03-18] MEDS: clonazePAM 0.5 MG TAB PO SCH (08:19)
[2023-03-18] MEDS: methylPREDNISolone 60 MG in SYRINGE 0 ML IV SCH ×3 (10:22→23:50)
--- NOTE | 2023-03-18 12:00 | Hospitalist Progress Note ---
Date of Service March 18, 2023 Assessment & Plan (1) Chronic radicular pain of lower back: Plan: MRI scan reveals degenerative disc disease with stenosis. No urgent surgical intervention necessary at this time. Parenteral steroid therapy has been started. Continue pain control measures (2) HTN (hypertension): Plan: Stable. Continue current medical management (3) Anxiety: Plan: Stable. Continue current medical management (4) Depression: Plan: Stable. Continue current medical management Plan Anticipate eventual discharge to home on oral prednisone tapering dose. Possibly tomorrow, March 19 Admission and Anticipated Discharge Date Admission Date: March 17, 2023 Subjective Mildly lethargic from pain medications. is at the bedside. Lumbar MRI scan reveals evidence of degenerative disc disease and stenosis. Parenteral steroid therapy started. Hopefully she will improve quickly and be able to go home tomorrow, March 19. No indication for surgical intervention at this time. Review of Systems 2 Review of Systems: Constitutional-no fever or chills ENT-no blurred vision, no double vision, no epistaxis, no sore throat Respiratory-no cough, no wheezing, no shortness of breath Cardiac-no palpitations, no chest pain, no syncope GI-no nausea, vomiting, diarrhea, melena, hematochezia -no urinary retention, no urinary incontinence, no dysuria, no hematuria Musculoskeletal-low back pain with radiation down the right leg Skin-no bruising, no rashes, no pruritus Neuro-no isolated weakness, no paresthesia Psych-no depression, no anxiety Physical Exam 2 Physical Exam: General-alert and oriented x3, no fevers, no chills HEENT-head atraumatic and normocephalic, pupils equal and reactive to light, extraocular muscles intact Neck-no lymphadenopathy or thyromegaly, trachea midline Chest-clear to auscultation percussion. No rales wheezing or rhonchi Cardiac-regular rate and rhythm, normal S1 and S2 Abdomen-normal bowel sounds, nontender, no hepatosplenomegaly Extremities-no cyanosis, clubbing, or edema Neuro-cranial nerves II through XII intact, motor and sensory function within normal limits, strength symmetrical, no focal deficits Psych-normal affect, normal mood Results & Data Results & Data Vital Signs (Past 12 Hours) Vital Signs Temp Pulse Resp BP Pulse Ox O2 Del Method 03/18/23 08:15 36.6 C 83 16 146/80 H 97 Room Air Laboratory Results 03/18/23 06:51 03/18/23 06:51 PG Care Time/CCT Total # of Minutes Spent Total Time Spent with Patient: Total time spent is greater than 50% in coordination of care (as documented) at patient's floor/unit and/or counseling patient: Coding Level of Care Code 52464 SUB INP/OBS CARE 3/50MIN Diagnoses Chronic radicular pain of lower back M54.16; G89.29 HTN (hypertension) I10 Anxiety F41.9 Depression F32.9
--- NOTE | 2023-03-18 12:24 | Electrocardiogram Report ---
Test Reason : Blood Pressure : / mmHG Vent. Rate : 087 BPM Atrial Rate : 087 BPM P-R Int : 162 ms QRS Dur : 074 ms QT Int : 378 ms P-R-T Axes : 000 -03 045 degrees QTc Int : 454 ms Ectopic atrial rhythm Low voltage QRS Abnormal ECG Confirmed by Raj Mensah ([id number] on 03/18/2023 12:24:27 PM Referred By: Barbie Baron Confirmed By:Víctor Mensah
--- NOTE | 2023-03-18 13:12 | Pain Management Consultation ---
Date of Consultation March 18, 2023 Assessment & Plan (1) Chronic radicular pain of lower back: (2) Right flank pain: Plan 1. Await post-contrast thoracic MRI results. * Radiology department was coming to get the patient for this study as we were leaving. * The noncontrast lumbar and thoracic spine MRI imaging does not demonstrate a finding that would well explain the patient's current and ongoing symptom profile. Note completed after the results of the contrast portion of the thoracic MRI were returned. No suspicious marrow replacement was noted, which was previously seen on the noncontrast thoracic MRI, so this was likely physiologic. 2. Currently, no indication for an interventional pain procedure as inpatient. 3. Pain currently well controlled with IV methylprednisolone and Toradol and p.o. tramadol. * Continue as currently ordered. 4. Based on results of the thoracic spine MRI with contrast, would potentially follow through with having a consult by oncologist. 5. Patient may be a candidate for following up as an outpatient at the pain management clinic. Thank you for this consultation, we will follow along with patient's case. History of Present Illness Reason for Consultation: right back/flank pain Attending Physician: Preet Shepard MD History of Present Illness Patient is a 62-year-old female that presented to the [facility] ED yesterday and the day prior for right-sided mid to lower back pain that was radiating around her right flank towards her right upper quadrant of the abdomen. Apparently the patient has had this pain ever since about 1993. It seems that she has had exacerbation of these symptoms over the past 4 months or so, and that about 2 weeks ago it became quite severe. She was also seeing her PCP for this pain, and she last saw them on 03/10, but at that time there were no acute findings on exam, so an ED visit was not recommended. There was an attempt for her to get worked up as an outpatient, but the pain became more severe, which led her to presenting to the ED. When the symptoms became bad a couple of weeks ago she did say that she was having some sharp/shooting pains down the right leg at that time, but she no longer has this. Patient admits to a history of having lumbar epidural injections and nerve blocks/radiofrequency ablation by pain management clinic in [place], but she has not had any of these treatments for at least 10 years or more. Of note, she used to smoke cigarettes when she was younger, but says she has not done this for at least 40 years. She does use medical marijuana for anxiety. She has been worked up with a lumbar and thoracic spine MRI recently. The lumbar MRI demonstrates advanced disc degeneration at L5-S1, with more moderate DDD at L2-3, L3-4, and L4-5.The thoracic spine MRI showed no evidence of acute thoracic spine pathology. However, there were nonspecific T1 and T2 dark lesions in the T3, T5, and T6 vertebral bodies, which could be concerning for a bone marrow replacement process. Radiologist recommended a postcontrast MRI imaging for further evaluation. Today, the patient does state that her pain is in the same location. She localizes this to the thoracolumbar region on the right side and radiating around the base of her rib cage and flank towards the right upper quadrant of the abdomen. The right paraspinal region at this level is most tender, but then the area of the right flank just anterior to the midaxillary line is also quite tender. Patient says that she is actually been feeling much better recently, especially since they gave her the IV steroids. She seems to have trouble tolerating narcotic pain medicines in the past, but has done okay with tramadol, so she is currently taking this as needed. Pain management service has been contacted due to her persistent pain. Case discussed with Dr. Dottie Blakely. Allergies Allergy/AdvReac Type Severity Reaction Status Date / Time amoxicillin Allergy Intermediate rash Verified 03/20/23 13:36 clavulanic acid Allergy Intermediate rash Verified 03/20/23 13:36 latex Allergy Intermediate SORES-BLIST Verified 03/20/23 13:36 ERS Sulfa (Sulfonamide Allergy Intermediate "SULFA": Verified 03/20/23 13:36 Antibiotics) UNKNOWN meperidine AdvReac Intermediate VOMITING Verified 03/20/23 13:36 morphine AdvReac Intermediate VOMITING Verified 03/20/23 13:36 blue dye AdvReac Unknown TORE Verified 03/20/23 13:36 STOMACH UP dexlansoprazole AdvReac Unknown TORE Verified 03/20/23 13:36 STOMACH UP Home Medications Medication Instructions Recorded Confirmed Type vitamin B complex 1 tab PO HS ##0 12/29/13 03/21/23 History soy isoflavone-black cohosh 155 mg PO HS ##0 09/28/14 03/21/23 History root-magnolia bark 155 mg capsule (Estroven) lidocaine 5 % topical ointment 1 applic topical DAILY PRN pain 02/05/20 03/21/23 Rx #50 grams multivitamin 1 tab PO HS 08/15/20 03/21/23 History sumatriptan succinate 100 mg tablet 100 mg PO UD PRN Migraine Headache 07/16/21 03/21/23 Rx #9 tabs ondansetron HCl 4 mg tablet 4 mg PO DAILY PRN nausea and 03/10/22 03/21/23 Rx vomiting #30 tabs potassium chloride 20 mEq 20 meq PO BID #180 tabs 01/26/23 03/21/23 Rx tablet,extended release(part/cryst) spironolactone 50 mg tablet 50 mg PO HS #90 tabs 01/26/23 03/21/23 Rx clonazepam 1 mg tablet (Klonopin) See Rx Instructions .Route .COMPLEX 03/16/23 03/21/23 History fluoxetine 10 mg capsule 10 mg PO QAM 03/16/23 03/21/23 History hydrocodone 5 mg-acetaminophen 325 1 - 2 tab PO Q6H PRN pain #15 tabs 03/16/23 03/21/23 Rx mg tablet lidocaine 5 % topical patch 1 patch topical DAILY #15 ea 03/16/23 03/21/23 Rx (Lidoderm) ondansetron 4 mg disintegrating 4 mg PO Q6H PRN nausea and 03/16/23 03/21/23 Rx tablet vomiting #20 tabs bisacodyl 10 mg rectal suppository 10 mg OK DAILY PRN constipation 03/20/23 03/21/23 Rx (Dulcolax (bisacodyl)) #12 ea doxycycline hyclate 100 mg tablet 100 mg PO BID 10 days #20 tabs 03/20/23 03/21/23 Rx promethazine 25 mg tablet 25 mg PO Q6H PRN sedation #14 tabs 03/20/23 03/21/23 Rx tramadol 50 mg tablet 50 mg PO Q8H PRN pain #14 tabs 03/20/23 03/21/23 Rx Patient History Medical History (Updated 03/20/23 @ 15:00 by Kurt Damian MD) Hx of seasonal allergies "Used to use an inhaler years ago for her allergies" History of COVID-19 03/02/22, home test, not hosp; high fever, chills, nausea and diarrhea, loss taste>resolved w/exception of loss of taste Post herpetic neuralgia Peroneal tendon tear surgical repair Gitelman syndrome Diverticular disease hx IBS (irritable bowel syndrome) DDD (degenerative disc disease) Depression Anxiety Migraines hx HTN (hypertension) Iron deficiency Chronic sinusitis Acid reflux Surgical History S/P rhinoplasty S/P endometrial ablation S/P tendon repair (03/2019) L ankle History of prior ablation treatment cervix History of sinus surgery History of esophagogastroduodenoscopy (EGD) History of section History of tonsillectomy History of cholecystectomy Family History Father Family history of CABG Colorectal cancer Cardiac disorder Diabetes Hypertension Myocardial infarction Mother Colorectal cancer Cardiac disorder Diabetes Hypertension Myocardial infarction Family/Other Colorectal cancer Sister Pseudotumor cerebri Uncle Prostate cancer Denies family history of Ovarian cancer Breast cancer Social History Smoking Status: Never smoker Tobacco Type: Cigarettes Second Hand Exposure: No; Do You Dip or Chew Tobacco: No; Hx Alcohol Use: No Hx Substance Use: Yes Prescribed Medications: Marijuana Last Used Substance: Days (ago) Last Used Substance Other:: daily use Preferred Language: Estonian Communication Ability: Effective Visual Impairment: No Limitations Hearing Ability: Normal Keeper Head Required: No Beliefs That Will Affect Care: None marital status: Current Living Situation: Spouse current occupational status: disabled 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 Mood and affect is appropriate. Does not appear in acute distress. HEAD: Normocephalic; atraumatic. NECK: Trachea is midline. CHEST: Regular chest respiration and excursion. EXTREMITIES: Full ROM. No TTP. Distal sensation and pulses intact bilaterally. BACK: Full ROM.There is no midline, SI joint, or facet joint tenderness. No lumbosacral tenderness.+ right thoracolumbar region tenderness wrapping around to the RUQ along the base of the rib cage. There is no quadratus lumborum, piriformis, or gluteal tenderness or spasm.Inspection/palpation demonstrates some loss of normal lumbar lordotic curvature. NEURO: CN II-XII grossly intact with no focal deficits noted. Normal gait. Awake, alert, and oriented x 3. Distal sensation of lower legs intact and equal bilaterally. Patellar Reflex R 2+L 2+ Achilles Reflex R 2+L 2+ Negative clonus bilaterally SKIN: No lesions, erythema, or rashes noted. LOWER EXTREMITIES: Negative straight leg raise bilaterally. R Hip flexion 4+/5; hip extension 5/5; knee extension 5/5; knee flexion 5/5; ankle dorsiflexion 5/5; ankle plantar flexion 5/5; EHL 5/5 L Hip flexion 4+/5; hip extension 5/5; knee extension 5/5; knee flexion 5/5; ankle dorsiflexion 5/5; ankle plantar flexion 5/5; EHL 5/5 Results (Pain Clinic) Diagnostic Review MRI Findings: Exam(s): MRI T SPINE Without Contrast EXAM: MR Thoracic Spine Without Intravenous Contrast CLINICAL HISTORY: Reason for exam: radicular back/side pain. TECHNIQUE: Magnetic resonance images of the thoracic spine without intravenous contrast in multiple planes. COMPARISON: No relevant prior studies available. FINDINGS: Vertebrae: There is normal vertebral body height and alignment. T1 and T2 dark lesions in the T3, T5 and T6 vertebral bodies, which are nonspecific. Focal fat or venous malformation within the T11 vertebral body. No acute fracture. Discs/spinal canal/neural foramina: Moderate disc degeneration at T6-7 with annular disc bulge flattening the ventral cord without evidence of a mild cord signal. No acute findings. No significant disc disease. No spinal canal stenosis. Spinal cord: Prominence of the central canal at T4-T7.. Normal signal. Soft tissues: Unremarkable. IMPRESSION: No evidence of acute thoracic spine pathology. Nonspecific T1 and T2 dark lesions in the T3, T5 and T6 vertebral bodies, concerning for bone marrow replacement process. Recommend postcontrast imaging for further evaluation. Electronically signed by: Chela Gibbs MD 03/17/23 23:08 PM Dictated: 03/17/232307 Transcribed: 03/17/232307 Exam(s): MRI L SPINE Without Contrast EXAM: MR Lumbar Spine Without Intravenous Contrast CLINICAL HISTORY: Reason for exam: radicular back/side pain. TECHNIQUE: Magnetic resonance images of the lumbar spine without intravenous contrast in multiple planes. COMPARISON: Comparison made to prior lumbar spine MRI from July 29, 2015. FINDINGS: Vertebrae: There are 5 lumbar type vertebral bodies with a mild generalized curve to the left and straightening of the normal lumbar lordosis. There is normal vertebral body height and alignment. The bone marrow signal is heterogeneous with reactive endplate changes at L5-S1. No acute fracture. Spinal cord: The conus is normal size, shape and signal characteristics, terminating at L1-L2. Soft tissues: Moderate to advanced atrophy of the iliopsoas, paraspinous intraspinous musculature. The aortic and IVC flow voids are intact. The visualized kidneys are unremarkable. DISCS/SPINAL CANAL/NEURAL FORAMINA: L1-L2: There are intervertebral disc is normal. There is mild facet arthropathy with mild synovitis. L2-L3: Moderate disc degeneration with annular disc bulge asymmetric to the right causing a mild subarticular recess stenosis, with disc extending to the neural foramina without impingement or significant stenosis. There is minimal to mild facet arthropathy with mild synovitis. L3-L4: Moderate disc degeneration with annular disc bulge asymmetric to the left causing a mild subarticular recess stenosis, with disc extending to the neural foramina without impingement or significant stenosis. There is mild facet joint arthropathy with mild to moderate synovitis. L4-L5: There is mild disc degeneration with annular disc bulge asymmetric to the left causing mild subarticular recess stenosis, disc extending to the neural foramina causing a mild right stenosis without evidence of neural impingement. There is mild facet joint arthropathy with mild synovitis. L5-S1: Advanced disc degeneration with annular disc bulge asymmetric to the left flattening the ventral thecal sac, with disc and osteophyte extending to the neural foramina causing mild bilateral stenosis without evidence of neural impingement. There is minimal right and mild left facet arthropathy with mild synovitis. IMPRESSION: 1. Advanced disc degeneration at L5-S1 with moderate disc degeneration at L2-3, L3-4 and mild disc degeneration at L4-5 with annular disc bulging flattening the ventral thecal sac and causing mild subarticular recess stenosis at L2-3, L3-4 and L4-5 without evidence of neural impingement. 2. There is no spinal canal stenosis. 3. There is a mild right L4-5 and mild bilateral L5-S1 neural foraminal stenosis without evidence of neural impingement. 4. There is minimal to mild facet arthropathy with mild to moderate synovitis, most significant at L3-4. 5. No evidence of fracture, infection, tumor or arachnoiditis. Electronically signed by: Chela Gibbs MD 03/17/23 23:54 PM Dictated: 03/17/232353 Transcribed: 03/17/232353 MRI OF THE THORACIC SPINE WITH AND WITHOUT CONTRAST CLINICAL HISTORY: T3, T5 and T6 bone marrow replacement eval COMPARISON: Thoracic spine MRI March 17, 2023. Chest CT March 16, 2023. TECHNIQUE: Utilizing a 1.5 Marisel magnet and dedicated coil, multiplanar, multiecho imaging of the thoracic spine was performed before and after the intravenous administration of 5 cc. FINDINGS: Alignment of the thoracic spine is anatomic. Vertebral body heights are maintained. No thoracic spine fracture is present. No enhancing lesions within the thoracic spine are present. The apparent marrow replacement process within the T3, T5 and T6 vertebral bodies on MRI of March 17, 2023 is likely physiologic. These foci do not enhance. There is no intracanalicular mass or fluid collection. Please note that only pre and postcontrast imaging was performed on this study given T2 imaging on previous thoracic spine MRI. Mediastinal lymphadenopathy is better depicted on chest CT of March 16, 2023. IMPRESSION: 1. No suspicious marrow replacement, as described above. Apparent marrow replacement process on previous MRI was likely physiologic. These foci do not enhance. 2. No thoracic spine fractures. 3. Mediastinal lymphadenopathy better depicted on chest CT of March 16, 2023. ACT 112: Negative or not required by law. Electronically signed by: Tj Blunt M.D. 03/18/2023 2:55 PM Dictated: 03/18/23 1443 Transcribed: 03/18/23 1443
[2023-03-18] MEDS ORDERED: GADOBUTROL 65ML VIAL IV ONE (13:47)
--- NOTE | 2023-03-18 14:56 | Magnetic Resonance Report ---
MRI OF THE THORACIC SPINE WITH AND WITHOUT CONTRAST CLINICAL HISTORY: T3, T5 and T6 bone marrow replacement eval COMPARISON: Thoracic spine MRI March 17, 2023. Chest CT March 16, 2023. TECHNIQUE: Utilizing a 1.5 Marisel magnet and dedicated coil, multiplanar, multiecho imaging of the th oracic spine was performed before and after the intravenous administration of 5 cc. FINDINGS: Alignment of the thoracic spine is anatomic. Vertebral body heights are maintained. No thor acic spine fracture is present. No enhancing lesions within the thoracic spine are present. The appar ent marrow replacement process within the T3, T5 and T6 vertebral bodies on MRI of March 17, 2023 i s likely physiologic. These foci do not enhance. There is no intracanalicular mass or fluid collectio n. Please note that only pre and postcontrast imaging was performed on this study given T2 imaging on previous thoracic spine MRI. Mediastinal lymphadenopathy is better depicted on chest CT of March 16, 2023. IMPRESSION: 1. No suspicious marrow replacement, as described above. Apparent marrow replacement process on previ ous MRI was likely physiologic. These foci do not enhance. 2. No thoracic spine fractures. 3. Mediastinal lymphadenopathy better depicted on chest CT of March 16, 2023. ACT 112: Negative or not required by law. Electronically signed by: Tj Blunt M.D. 03/18/2023 2:55 PM
[2023-03-18] MEDS ORDERED: LIDOCAINE 5% 1 PATCH TD SCH (21:00)
[2023-03-19 06:27] LABS: Basophils # (auto) 0.02 K/uL (0.00-0.20); Basophils % (auto) 0.2 %; Hemoglobin 12.6 g/dl (12.0-16.0); Immature Granulocytes # (auto) 0.05 K/uL (0.01-0.20); Immature Granulocytes % (auto) 0.4 %; Lymphocytes # (auto) 1.05 K/uL (1.20-3.40); Lymphocytes % (auto) 8.3 %; Mean Corpuscular Hemoglobin 30.7 pg (25.0-34.0); Mean Corpuscular Volume 87.8 fL (80.0-100.0); Mean Platelet Volume 11.2 fL (9.4-12.4); Monocytes # (auto) 0.63 K/uL (0.11-0.59); Neutrophils # (auto) 10.92 K/uL (1.40-6.50); Neutrophils % (auto) 86.1 %; Platelet Count 293 K/uL (130-400); RDW Standard Deviation 38.7 fL (36.4-46.3); White Blood Count 12.67 K/ul (4.8-10.8)
[2023-03-19 06:43] LABS: BUN Creatinine Ratio 17.2 (10-20); Calcium 9.2 mg/dl (8.6-10.3); Creatinine Clr Calc Pharmacy 48.2 ml/min; Est GFR (African American) 75.8 ml/min; Est GFR (Non-African American) 65.4 ml/min; Potassium 4.8 mmol/L (3.5-5.1)
[2023-03-19] MEDS ORDERED: DOCUSATE SODIUM 100 MG CAP PO ONE (08:33)
[2023-03-19] MEDS: POTASSIUM CHLORIDE CRTAB 20 MEQ TABCR PO SCH (08:57)
[2023-03-19] MEDS: methylPREDNISolone 60 MG in SYRINGE 0 ML IV SCH (08:57)
[2023-03-19] MEDS: FLUoxetine HCL 10 MG CAP PO SCH (08:57)
[2023-03-19] MEDS: clonazePAM 0.5 MG TAB PO SCH (09:01)
--- NOTE | 2023-03-19 10:45 | Discharge Summary ---
Date of Service March 19, 2023 Admission HPI Per Admitting Provider Subha is a 62 year old female with a PMH significant for anxiety/depression, acid reflux, esophageal dysphagia, HTN, IBS, and chronic pain who presented to the [facility] ED on 03/17 for ongoing right back/abdominal pain, nausea, and vomiting. This is the patient's 2nd ED visit in the past 24 hours for the same symptoms. On 03/16 she was evaluated and remained stable. CBC, CMP, Cardiac workup, and UA were unremarkable. CTA of the chest was read as "1. No evidence for a pulmonary embolus. 2. Interval development of mediastinal, left hilar, and lower cervical lymphadenopathy as described above. This could be due to inflammatory/infectious process. However, a neoplastic process remains the diagnosis of exclusion. Follow-up nonemergent oncology consultation recommended. In addition, [address] follow-up can be performed to evaluate for stability/resolution. 3. A 1 cm peripheral groundglass airspace opacity within the right upper lobe. This favors a small focus of inflammatory/infectious change. Attention at follow-up recommended to ensure resolution. 4. Mild bronchial wall thickening suggestive of a bronchitis with mild air trapping within the lungs.". CT of the abd/pelvis with IV con was read as "No acute infectious or inflammatory findings are identified in the abdomen or pelvis.". While in the ED she received a total of 3 doses, 50 mcg IV fentanyl, 1.25L NSS, and a dose of zofran prior to discharge. At the time of the exam the patient was sitting in bed and appears uncomfortable, her was bedside, history was obtained from both. She states that she has had chronic pain starting in her right low back with radiation around her right flank and to the RUQ. She describes the pain as constant, burning, and currently a 10/10. She explains that she has had the pain since 1993; she denies any associated trauma before developing the pain. Initially her pain was so severe that her PCP in [place] called a surgeon in for emergent cholecystectomy. However, she and her state that when the surgeon took her to the OR she was found to be without a gallbladder. She states, "the surgeon told me that it just looked like old rubber bands where my gallbladder used to be". When clarifying with the patient and her , they state that there was reportedly imaging of her gallbladder prior to be taken to the OR that concerned the Physicians enough to take her to the OR. The pain has waxed and waned over the years but has been much more severe over the past 2 weeks. She went to her PCP on 03/10 for the same symptoms. Per the PCP's clinic note, there were no acute findings on exam to warrant ED visit at that time. They were attempting to do her workout outpatient but she could not tolerate the pain, leading to her ED visit on 03/16. During my discussions with the patient and her they mentioned an episode of shingles on the left back/abdomen. They state that it was in the same general location as her current pain. She states that she was started on gabapentin at that time but was taken off as she had an adverse reaction which she describes as "numbness in my mouth". When asked, she and her state that she was seen by Pain Management in [place] and received either injections or a nerve ablation that significantly improved her pain. When asked about radicular symptoms she states that she initially had sharp/shooting pain down the right leg when her back was exacerbated 2 weeks ago, but this is no longer present. She denies current tobacco or alcohol use. She does use medical marijuana for her anxiety. She states that the narcotics she received in the ED and on discharge yesterday made her very nauseous. She thinks that she tolerated tramadol in the past. She is interested in seeing pain management again for possible treatments. She again denies any recent trauma. She is a full code and would want her to make medical decisions for her if she cannot make them herself. Please refer to Dr. Jolly's attestation Principal Diagnosis Lumbar degenerative disc disc disease, lumbar stenosis, lumbar radiculopathy Discharge Exam General-alert and oriented x3, no fevers, no chills HEENT-head atraumatic and normocephalic, pupils equal and reactive to light, extraocular muscles intact Neck-no lymphadenopathy or thyromegaly, trachea midline Chest-clear to auscultation percussion. No rales wheezing or rhonchi Cardiac-regular rate and rhythm, normal S1 and S2 Abdomen-normal bowel sounds, nontender, no hepatosplenomegaly Extremities-no cyanosis, clubbing, or edema Neuro-cranial nerves II through XII intact, motor and sensory function within normal limits, strength symmetrical, no focal deficits Psych-normal affect, normal mood Discharge Data Allergies Allergy/AdvReac Type Severity Reaction Status Date / Time amoxicillin Allergy Intermediate rash Verified 03/17/23 19:16 clavulanic acid Allergy Intermediate rash Verified 03/17/23 19:16 latex Allergy Intermediate SORES-BLIST Verified 03/17/23 19:16 ERS Sulfa (Sulfonamide Allergy Intermediate "SULFA": Verified 03/17/23 19:16 Antibiotics) UNKNOWN meperidine AdvReac Intermediate VOMITING Verified 03/17/23 19:16 morphine AdvReac Intermediate VOMITING Verified 03/17/23 19:16 blue dye AdvReac Unknown TORE Verified 03/17/23 19:16 STOMACH UP dexlansoprazole AdvReac Unknown TORE Verified 03/17/23 19:16 STOMACH UP Consultations 03/17/23 19:58 ED Decision to Admit Stat 03/17/23 20:57 Consult Pain Management Routine Ordered Studies 03/17/23 20:48 MRI Thoracic [MR thoracic spine wo con] Routine 03/17/23 20:50 MRI Lumbar Spine [MR lumbar spine wo con] Urgent 03/18/23 10:17 MR thoracic spine wo/w con Urgent Hospital Course (1) Chronic radicular pain of lower back: Lumbar degenerative disc disease and lumbar stenosis noted on MRI scan. She has improved dramatically with parenteral steroid therapy. She will be discharged on prednisone tapering dose going forward. (2) HTN (hypertension): Stable. Continue spironolactone (3) Anxiety: Stable. Continue fluoxetine, and prn Klonopin (4) Depression: Stable. Continue fluoxetine Plan Home today, March 19, on prednisone tapering dose Total Time Total Time Spent Total Time Spent (In Minutes): 45 minutes Discharge Plan Discharge Items Patient Disposition: Home - Self-Care Reason For Visit: UNCONTROLLED BACK/SIDE PAIN Discharge Diagnosis: Lumbar radiculopathy due to lumbar degenerative disc disease and lumbar stenosis Activity: Resume your previous activity Non-emergency contact: Primary Care Provider Call non-emergency contact if: your symptoms worsen Follow-up/Referrals: Barbie Baron DO [Primary Care Provider] - Diet: Regular Addtl Attending Provider Instructions: Take prednisone in a tapering dose fashion as directed Pending Studies at Discharge: No Stand-Alone Forms: My [facility], Smoking Cessation Medications and DC Order Prescriptions: New prednisone 10 mg tablet See Rx Instructions .ROUTE .COMPLEX Qty: 12 0RF Rx Instructions: 10 mg orally 3 times a day for 2 days, then 10 mg twice a day for 2 days, then 10 mg once a day for 2 days, then stop Continued vitamin B complex Tablet 1 tab PO HS Qty: 0 Estroven 155 mg Capsule 155 mg PO HS Qty: 0 sumatriptan succinate 100 mg tablet 100 mg PO UD PRN (Reason: Migraine Headache) Qty: 9 5RF Rx Instructions: take one tablet at onset of migraine, may repeat one dose 2 hours after initial dose, max daily dose 200 mg. ondansetron HCl 4 mg tablet 4 mg PO DAILY PRN (Reason: nausea and vomiting) Qty: 30 0RF potassium chloride 20 mEq tablet,ER particles/crystals 20 meq PO BID Qty: 180 1RF spironolactone 50 mg tablet 50 mg PO HS Qty: 90 1RF lidocaine 5 % ointment 1 applic topical DAILY PRN (Reason: pain) Qty: 50 1RF multivitamin Tablet 1 tab PO HS clonazepam [Klonopin] 1 mg tablet See Rx Instructions .ROUTE .COMPLEX Rx Instructions: take 0.5mg PO in AM, 1mg PO QHS fluoxetine 10 mg capsule 10 mg PO QAM hydrocodone-acetaminophen 5-325 mg tablet 1 - 2 tab PO Q6H PRN (Reason: pain) Qty: 15 0RF Rx Instructions: Initial Treatment lidocaine [Lidoderm] 5 % adhesive patch,medicated 1 patch topical DAILY Qty: 15 0RF Rx Instructions: leave on most painful area for up to 12 hrs ondansetron 4 mg tablet,disintegrating 4 mg PO Q6H PRN (Reason: nausea and vomiting) Qty: 20 0RF Admission Data Admit Date/Time: 03/17/23 20:01 Attending Provider: Preet Shepard Admit Provider: Cem Jolly Primary Care Provider: Barbie Baron Other Providers: Cem Jolly; Dottie Blakely Coding Level of Care Code 33729 INP/OBS DISCH >30 MIN Diagnoses Chronic radicular pain of lower back M54.16; G89.29 HTN (hypertension) I10 Anxiety F41.9 Depression F32.9
[2023-03-19] MEDS: ONDANSETRON INJ 2 MG/ML 2 ML VIAL IV PRN (11:10)
== END 2023-03-19 14:49 | disposition home or self-care (01) ==
LOC: ED 17:07 → 3N 17:07 → SUATTDRO 20:01 → 3N 22:42

== ENCOUNTER 2024-05-03 18:52 | Observation (INO) ==
[2024-05-03] MEDS: MoRPHine SULFATE 4 MG/ML 1 ML CARP\\VIAL IV STA (19:55)
[2024-05-03] MEDS: ONDANSETRON INJ 2 MG/ML 2 ML VIAL IV STA (19:56)
--- NOTE | 2024-05-03 19:57 | Emergency Department Note ---
Impression & Plan Intractable abdominal pain, Nausea & vomiting, Leukocytosis, Colitis, Elevated lactic acid level ED Provider Note HISTORY OF PRESENT ILLNESS: Patient is a 63-year-old female presenting with acute onset of abdominal pain. Patient reports she was out shopping when at 1500 she developed acute onset of abdominal pain. She had multiple episodes of vomiting with the abdominal pain. States that she got very lightheaded and dizzy and thought she was going to pass out when she presented to the ER. Denies any recent sick contact exposures. Denies any history of abdominal surgeries. She currently rates her pain a 10 out of 10 and locates diffusely across her abdomen. She denies any dysuria or hematuria. Denies any fevers. Currently complaining of nausea. Denies any chest pain or shortness of breath. ROS: as above PHYSICAL EXAM: Constitutional: Patient appears in no acute distress. Patient is writhing around in bed gripping her abdomen. HENT: Head: Normocephalic and atraumatic. Eyes: EOMI, PERRL Mouth/Throat: Mucous membranes moist. Neck: Trachea midline. Neck supple. Cardiovascular: Tachycardic with regular rhythm. No murmurs, rubs or gallops. Intact distal pulses. Pulmonary/Chest: No respiratory distress. Breath sounds clear and equal bilaterally. No wheezes or rales. Abdominal: Abdomen soft, no rebound or guarding. Diffuse tenderness to palpation Musculoskeletal: No edema, tenderness or deformity noted. Skin: Warm and dry. No rash, erythema, pallor or cyanosis Psychiatric: Appropriate mood and affect for situation. Neurological: Alert and keenly responsive. CN II-XII grossly intact, moving all extremities equally and fully. MDM: - Vitals signs showed hypertension, tachycardia and tachypnea. - History obtained via patient. History as above. - Chronic conditions affecting care: HTN; prediabetes; depression/anxiety - Differential diagnoses include, but are not limited to: Aortic aneurysm; aortic dissection; appendicitis; bowel obstruction; gastroenteritis; pancreatitis; perforated bowel; volvulus - Order placed for continuous cardiac monitoring. At this time, monitor showed rate of 81 bpm with normal sinus rhythm, per my interpretation. - External medical records reviewed. Primary care visit note dated 04/19/2024 was reviewed. Patient was seen in clinic for an acute visit for sleep difficulties. - EKG interpreted by myself showed normal sinus rhythm. Rate tachycardic at 102 bpm. QT 372. No acute ischemic changes. - Laboratory workup interpreted by myself showed leukocytosis (WBC 19.99) with neutrophil predominance; thrombocytosis (plt 569); normal electrolytes; hyperglycemia (glucose 146); elevated anion gap (13); elevated lactate (2.1); normal procalcitonin; normal troponin; normal lipase; normal liver function - Viral respiratory panel negative - Blood cultures obtained. - Patient initially given 4 mg IV morphine and 4 mg IV zofran. However, patient still complaining of 10/10 pain. Given 0.5 mg IV dilaudid and 1L NS. - CT abdomen/pelvis with IV contrast showed mild mucosal thickening within the distal transverse colon, descending colon and sigmoid colon concerning for mild colitis versus underdistention. - Leukocytosis and elevated lactate may be secondary to dehydration in the setting of patient's multiple episodes of vomiting. However, she still complaining of abdominal pain and in the setting of mild colitis, will treat with IV antibiotics. Patient has an allergy to sulfa medications and amoxicillin. IV Cipro and Flagyl was ordered for GI coverage. - Discussion was had with hospice case manager about patient's case and need for admission - Hospitalist consulted for admission - Patient admitted to [facility] for further evaluation and management. ASSESSMENT AND PLAN: Diagnosis: intractable abdominal pain; nausea and vomiting; leukocytosis; colitis; elevated lactic acid level Plan: admit Past Med/Surg History Problem List (Updated 05/03/24 @ 21:19 by Patricia Pineda MD) Elevated lactic acid level (Acute) Colitis (Acute) Leukocytosis (Acute) Nausea & vomiting (Acute) Intractable abdominal pain (Acute) HTN (hypertension) Postmenopausal disorder Schatzki's ring Glaucoma Plantar fasciitis, left Tear of peroneal tendon of left foot Esophageal dysphagia History of COVID-19 Peroneal tendon tear surgical repair Tinnitus Dry eye syndrome Acid reflux Prediabetes Osteoarthritis Migraine headache Irritable bowel syndrome with diarrhea Iron deficiency Insomnia, persistent Hyperlipidemia Diverticulosis Depression with anxiety Chronic sinusitis Degenerative disc disease, lumbar Gitelman syndrome Medical History (Updated 05/03/24 @ 21:19 by Patricia Pineda MD) Post herpetic neuralgia Schatzki's ring History of esophageal dilatation Hx of migraines Chronic radicular pain of lower back Hx of seasonal allergies "Used to use an inhaler years ago for her allergies" History of COVID-19 (03/2023) 03/02/22, home test, not hosp; high fever, chills, nausea and diarrhea, loss taste>resolved w/exception of loss of taste 03/2023 - mild, recovered Diverticular disease hx DDD (degenerative disc disease) Surgical History Hx of colonoscopy History of laser refractive surgery (10/2023) left eye due to glaucoma S/P rhinoplasty S/P tendon repair (03/2019) L ankle History of prior ablation treatment cervix History of esophagogastroduodenoscopy (EGD) History of section History of tonsillectomy History of cholecystectomy Family History Father Family history of CABG Cardiac disorder Diabetes Hypertension Myocardial infarction Mother Cardiac disorder Diabetes Hypertension Myocardial infarction Coronary heart disease Sister Pseudotumor cerebri Uncle Prostate cancer Denies family history of Ovarian cancer Breast cancer Social History Smoking Status: Never smoker Tobacco Type: Cigarettes Age Started Using Tobacco: 13; Age Quit Using Tobacco: 22; packs per day: 0.10; Cigarettes Per Day: 2-3 cig/day; Second Hand Exposure: No; Do You Dip or Chew Tobacco: No; Hx Alcohol Use: No Hx Substance Use: Yes Prescribed Medications: Marijuana Last Used Substance: Days (ago) Last Used Substance Other:: medical marijuana (advised) Preferred Language: Lithuanian Communication Ability: Effective Visual Impairment: No Limitations Hearing Ability: Normal Bellows Assembler Required: No Beliefs That Will Affect Care: None marital status: Current Living Situation: Spouse current occupational status: disabled 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 Feels Safe at Home: Yes Childhood Exposure to Second-Hand Smoke: No Diet: regular Diet Comment: regular, low appetite caffeine: Yes (pepsi ) during the past year weight has: remained stable Dental Care, Regularly: Yes Physical Activity Frequency: Daily Physical Activity Frequency Comment: work Seatbelt Use: always Sunscreen Use: Yes Assistive Devices: Contacts Allergies Allergies Allergy/AdvReac Type Severity Reaction Status Date / Time amoxicillin Allergy Intermediate rash Verified 04/19/24 13:59 clavulanic acid Allergy Intermediate rash Verified 04/19/24 13:59 latex Allergy Intermediate SORES-BLIST Verified 04/19/24 13:59 ERS Sulfa (Sulfonamide Allergy Intermediate "SULFA": Verified 04/19/24 13:59 Antibiotics) UNKNOWN meperidine AdvReac Intermediate VOMITING Verified 04/19/24 13:59 morphine AdvReac Intermediate VOMITING Verified 04/19/24 13:59 oxycodone AdvReac Mild Unknown Verified 05/03/24 19:16 dexlansoprazole AdvReac Unknown TORE Verified 04/19/24 13:59 STOMACH UP fentanyl AdvReac Unknown Verified 05/03/24 19:16 Home Meds Home Medications Medication Instructions Recorded Confirmed lidocaine 5 % topical patch 1 patch topical DAILY PRN Pain 11/30/23 04/19/24 (Lidoderm) estradiol 0.5 mg tablet 0.5 mg PO DAILY 04/09/24 04/19/24 magnesium 200 mg tablet 500 mg PO QPM 04/09/24 04/19/24 progesterone micronized 100 mg 100 mg PO DAILY 04/09/24 04/19/24 capsule Previous Rx's Medication Instructions Recorded potassium chloride 20 mEq 20 meq PO BID #180 tabs 09/05/23 tablet,extended release(part/cryst) ondansetron 4 mg disintegrating 4 mg PO Q8H PRN nausea and 11/21/23 tablet vomiting #30 tabs pantoprazole 40 mg tablet,delayed 40 mg PO DAILY #30 tabs 12/15/23 release spironolactone 50 mg tablet 50 mg PO HS #90 tabs 01/18/24 doxepin 6 mg tablet 6 mg PO HS PRN sleep #14 tabs 04/13/24 clonazepam 1 mg tablet (Klonopin) 1 mg PO BID #60 tabs 04/19/24 fluoxetine 20 mg tablet 20 mg PO DAILY #30 tabs 04/19/24 Results & Data (ED) Vital Signs Vital Signs - 24 hr 05/03/24 18:55 05/03/24 19:04 05/03/24 19:04 Temperature 36.4 C L Temperature Source Oral Pulse Rate 95 H 101 H Pulse Rate [Apical] Respiratory Rate 22 25 H Respiratory Effort / Characteristics Non-Labored Spontaneous Non-Labored Spontaneous Respiratory Depth Normal Normal Respiratory Pattern Regular Blood Pressure 124/79 155/129 H Blood Pressure [Right Arm] Blood Pressure Mean 94 137 Blood Pressure Mean [Right Arm] Blood Pressure Position Sitting Pulse Oximetry 100 100 100 Oxygen Delivery Method Room Air Room Air Room Air Sepsis Recent Fever Within 48 Hours Yes No Sepsis New/Unexplained Change in Mental Status N/A No Sepsis Action Taken by Nursing No Action Required Physician Notified 05/03/24 19:04 05/03/24 19:31 05/03/24 21:00 Temperature 36.6 C Temperature Source Oral Pulse Rate Pulse Rate [Apical] 101 H 81 Respiratory Rate 25 H 14 Respiratory Effort / Characteristics Non-Labored Spontaneous Non-Labored Spontaneous Respiratory Depth Normal Normal Respiratory Pattern Blood Pressure Blood Pressure [Right Arm] 155/129 H 107/67 Blood Pressure Mean Blood Pressure Mean [Right Arm] 137 80 Blood Pressure Position Pulse Oximetry 100 100 92 Oxygen Delivery Method Room Air Room Air Room Air Sepsis Recent Fever Within 48 Hours Sepsis New/Unexplained Change in Mental Status Sepsis Action Taken by Nursing Laboratory Data 05/03/24 19:08 05/03/24 19:08 Lab Results 05/03/24 05/03/24 05/03/24 Range/Units 19:08 19:13 20:44 WBC 19.99 H (4.8-10.8) K/ul RBC 4.45 (4.20-5.40) M/uL Hgb 13.6 (12.0-16.0) g/dl POC Hgb 14.3 (12.0-16.0) g/dl Hct 38.8 (37.0-47.0) % POC Hct 42 (37-47) % MCV 87.2 (80.0-100.0) fL MCH 30.6 (25.0-34.0) pg MCHC 35.1 (32.0-36.0) g/dL RDW Std Deviation 38.0 (36.4-46.3) fL RDW Coeff of Snoi 11.9 (11.5-14.5) % Plt Count 569 H (130-400) K/uL MPV 10.7 (9.4-12.4) fL Immature Gran % (Auto) 0.5 % Neut % (Auto) 88.2 % Lymph % (Auto) 7.2 % Towns % (Auto) 3.6 % Eos % (Auto) 0.1 % Baso % (Auto) 0.4 % Neut # (Auto) 17.66 H (1.40-6.50) K/uL Lymph # (Auto) 1.43 (1.20-3.40) K/uL Towns # (Auto) 0.72 H (0.11-0.59) K/uL Eos # (Auto) 0.01 (0.00-0.50) K/uL Baso # (Auto) 0.08 (0.00-0.20) K/uL Immature Gran # (Auto) 0.09 (0.01-0.20) K/uL POC Sodium 138 (135-144) mmol/L Sodium 138 (136-145) mmol/L POC Potassium 3.4 (3.3-5.0) mmol/L Potassium 3.5 (3.5-5.1) mmol/L POC Chloride 102 (101-112) mmol/L Chloride 102 (98-107) mmol/L Carbon Dioxide 23 (21-32) mmol/L POC Total CO2 21 L (24-31) mmol/L Anion Gap 13 H (3-11) POC Anion Gap 19.0 (16-25) mmol/L POC BUN 10 (7-18) mg/dl BUN 12 (6-23) mg/dl Creatinine 0.89 (0.6-1.2) mg/dl POC Creatinine 0.9 (0.6-1.3) mg/dl Est Cr Clr Drug Dosing 45.9 ml/min eGFR 72.35 BUN/Creatinine Ratio 13.5 (10-20) Glucose 146 H (70-99(Fasting)) mg/dl POC Glucose (other) 145 H (70-99) mg/dl Lactate 2.1 H* (0.4-2.0) mmol/L Calcium 9.6 (8.6-10.3) mg/dl POC Ioniz Calcium Lenny 1.07 L (1.12-1.32) mmol/l Total Bilirubin 0.4 (0.2-1.0) mg/dl AST 13 (13-39) U/L ALT 8 (7-52) U/L Alkaline Phosphatase 76 (34-104) U/L Troponin I High Sens 3.0 (0-14) pg/ml Total Protein 7.7 (6.0-8.3) gm/dl Albumin 4.6 (3.4-5.0) gm/dl Globulin 3.1 (2.5-4.0) gm/dl Albumin/Globulin Ratio 1.5 (0.9-2) Lipase 15 (11-82) U/L Procalcitonin 0.02 (0-0.5) ng/ml Urine Color Yellow Urine Appearance Clear (Clear) Urine pH 8.5 H (4.5-7.5) Ur Specific [place] 1.027 (1.000-1.030) Urine Protein Negative (Negative) Urine Glucose (UA) Negative (Negative) Urine Ketones 1+ H (Negative) Urine Blood Negative (Negative) Urine Nitrite Negative (Negative) Urine Bilirubin Negative (Negative) Urine Urobilinogen Negative (Negative) Ur Leukocyte Esterase Negative (Negative) Adenovirus (PCR) (NotDetected) B. pertussis DNA (PCR) (NotDetected) B.parapertussis DNA PCR (NotDetected) C. pneumoniae DNA (PCR) (NotDetected) Coronavirus OC43 (PCR) (NotDetected) Coronavirus HKU1 (PCR) (NotDetected) Coronavirus 229E (PCR) (NotDetected) SARS-CoV-2 (PCR) (NotDetected) Coronavirus NL63 (PCR) (NotDetected) Human Metapneumovir PCR (NotDetected) Influenza Type A (PCR) (NotDetected) Influenza Type B (PCR) (NotDetected) M. pneumoniae (PCR) (NotDetected) Parainfluenza 1 (PCR) (NotDetected) Parainfluenza 2 (PCR) (NotDetected) Parainfluenza 3 (PCR) (NotDetected) Parainfluenza 4 (PCR) (NotDetected) RSV (PCR) (NotDetected) Entero/Rhino (PCR) (NotDetected) 05/03/24 Range/Units Unknown WBC (4.8-10.8) K/ul RBC (4.20-5.40) M/uL Hgb (12.0-16.0) g/dl POC Hgb (12.0-16.0) g/dl Hct (37.0-47.0) % POC Hct (37-47) % MCV (80.0-100.0) fL MCH (25.0-34.0) pg MCHC (32.0-36.0) g/dL RDW Std Deviation (36.4-46.3) fL RDW Coeff of Soni (11.5-14.5) % Plt Count (130-400) K/uL MPV (9.4-12.4) fL Immature Gran % (Auto) % Neut % (Auto) % Lymph % (Auto) % Towns % (Auto) % Eos % (Auto) % Baso % (Auto) % Neut # (Auto) (1.40-6.50) K/uL Lymph # (Auto) (1.20-3.40) K/uL Towns # (Auto) (0.11-0.59) K/uL Eos # (Auto) (0.00-0.50) K/uL Baso # (Auto) (0.00-0.20) K/uL Immature Gran # (Auto) (0.01-0.20) K/uL POC Sodium (135-144) mmol/L Sodium (136-145) mmol/L POC Potassium (3.3-5.0) mmol/L Potassium (3.5-5.1) mmol/L POC Chloride (101-112) mmol/L Chloride (98-107) mmol/L Carbon Dioxide (21-32) mmol/L POC Total CO2 (24-31) mmol/L Anion Gap (3-11) POC Anion Gap (16-25) mmol/L POC BUN (7-18) mg/dl BUN (6-23) mg/dl Creatinine (0.6-1.2) mg/dl POC Creatinine (0.6-1.3) mg/dl Est Cr Clr Drug Dosing ml/min eGFR BUN/Creatinine Ratio (10-20) Glucose (70-99(Fasting)) mg/dl POC Glucose (other) (70-99) mg/dl Lactate (0.4-2.0) mmol/L Calcium (8.6-10.3) mg/dl POC Ioniz Calcium Lenny (1.12-1.32) mmol/l Total Bilirubin (0.2-1.0) mg/dl AST (13-39) U/L ALT (7-52) U/L Alkaline Phosphatase (34-104) U/L Troponin I High Sens (0-14) pg/ml Total Protein (6.0-8.3) gm/dl Albumin (3.4-5.0) gm/dl Globulin (2.5-4.0) gm/dl Albumin/Globulin Ratio (0.9-2) Lipase (11-82) U/L Procalcitonin (0-0.5) ng/ml Urine Color Urine Appearance (Clear) Urine pH (4.5-7.5) Ur Specific [place] (1.000-1.030) Urine Protein (Negative) Urine Glucose (UA) (Negative) Urine Ketones (Negative) Urine Blood (Negative) Urine Nitrite (Negative) Urine Bilirubin (Negative) Urine Urobilinogen (Negative) Ur Leukocyte Esterase (Negative) Adenovirus (PCR) Not Detected (NotDetected) B. pertussis DNA (PCR) Not Detected (NotDetected) B.parapertussis DNA PCR Not Detected (NotDetected) C. pneumoniae DNA (PCR) Not Detected (NotDetected) Coronavirus OC43 (PCR) Not Detected (NotDetected) Coronavirus HKU1 (PCR) Not Detected (NotDetected) Coronavirus 229E (PCR) Not Detected (NotDetected) SARS-CoV-2 (PCR) Not Detected (NotDetected) Coronavirus NL63 (PCR) Not Detected (NotDetected) Human Metapneumovir PCR Not Detected (NotDetected) Influenza Type A (PCR) Not Detected (NotDetected) Influenza Type B (PCR) Not Detected (NotDetected) M. pneumoniae (PCR) Not Detected (NotDetected) Parainfluenza 1 (PCR) Not Detected (NotDetected) Parainfluenza 2 (PCR) Not Detected (NotDetected) Parainfluenza 3 (PCR) Not Detected (NotDetected) Parainfluenza 4 (PCR) Not Detected (NotDetected) RSV (PCR) Not Detected (NotDetected) Entero/Rhino (PCR) Not Detected (NotDetected) Administered Medications Discontinued Medications Hydromorphone HCl (Hydromorphone Inj 0.5 Mg/0.5 Ml Syr) 0.5 mg IV NOW STA Stop: 05/03/24 20:26 Last Admin: 05/03/24 20:37 Dose: 0.5 mg Documented By: JAY Sodium Chloride (Nss) 1,000 mls @ 999 mls/hr IV .Q1H1M ONE Stop: 05/03/24 21:07 Last Admin: 05/03/24 20:20 Dose: 999 mls/hr Documented By: JAY Ioversol (Optiray 320 100ml) 93 ml IV ONCE ONE Stop: 05/03/24 20:09 Last Admin: 05/03/24 20:09 Dose: 93 ml Documented By: FABRIZIO Morphine Sulfate (Morphine Sulfate 4 Mg/Ml 1 Ml Carp\\Vial) 4 mg IV NOW STA Stop: 05/03/24 19:52 Last Admin: 05/03/24 19:55 Dose: 4 mg Documented By: JAY Ondansetron HCl (Ondansetron Inj 2 Mg/Ml 2 Ml Vial) 4 mg IV NOW STA Stop: 05/03/24 19:52 Last Admin: 05/03/24 19:56 Dose: 4 mg Documented By: JAY Ondansetron HCl (Ondansetron Inj 2 Mg/Ml 2 Ml Vial) Confirm Administered Dose 4 mg .ROUTE .STK-MED ONE Stop: 05/03/24 19:53 Last Admin: 05/03/24 20:05 Dose: Not Given Documented By: JAY Imaging Data Radiologist's Impression: Abdomen/Pelvis CT 05/03/24 19:44 Exam(s): CT ABDOMEN + PELVIS With Contrast IV Amt: 93ml optiray 320 EXAM: CT Abdomen and Pelvis With Intravenous Contrast CLINICAL HISTORY: Reason for exam: diffuse abd pain. TECHNIQUE: Axial computed tomography images of the abdomen and pelvis with intravenous contrast. CTDI is 11 mGy and DLP is 515 mGy-cm. Automated exposure control was utilized for the study. A dose lowering technique was utilized adhering to the principles of ALARA. CONTRAST: Patient received 93ml optiray 320 of IV contrast COMPARISON: 11/21/2023 FINDINGS: ABDOMEN: Liver: Unremarkable. Gallbladder and bile ducts: Cholecystectomy. Pancreas: Unremarkable. Spleen: Unremarkable. Adrenals: Unremarkable. Kidneys and ureters: Unremarkable. No obstructing stones. No hydronephrosis. Stomach and bowel: Mild mucosal thickening within the distal transverse colon, descending colon and sigmoid colon, underdistention versus mild colitis. Colonic diverticulosis without acute diverticulitis. PELVIS: Appendix: No findings to suggest acute appendicitis. Bladder: Unremarkable. Reproductive: Unremarkable as visualized. ABDOMEN and PELVIS: Intraperitoneal space: Unremarkable. No free air. No significant fluid collection. Bones/joints: No acute fracture. Soft tissues: Unremarkable. Vasculature: Unremarkable. Lymph nodes: Unremarkable. IMPRESSION: Mild mucosal thickening within the distal transverse colon, descending colon and sigmoid colon, underdistention versus mild colitis. Electronically signed by: David Sanabria MD 05/03/24 21:08 PM Discharge Plan Visit Data Chief Complaint: Abdominal Pain Stated Complaint: VOMITING, WEAK, SYNCOPE, FEVER, ED Provider: Patricia Pineda Discharge Problem: Intractable abdominal pain, Nausea & vomiting, Leukocytosis, Colitis, Elevated lactic acid level Forms Stand Alone Forms: My [facility] [employer] Prescriptions Prescriptions: No Action potassium chloride 20 mEq tablet,ER particles/crystals 20 meq PO BID Qty: 180 1RF spironolactone 50 mg tablet 50 mg PO HS Qty: 90 1RF doxepin 6 mg tablet 6 mg PO HS PRN (Reason: sleep) Qty: 14 0RF Hold Instructions: Home Medication placed on hold at Doctor's office fluoxetine 20 mg tablet 20 mg PO DAILY Qty: 30 3RF clonazepam [Klonopin] 1 mg tablet 1 mg PO BID Qty: 60 0RF magnesium 200 mg tablet 500 mg PO QPM Rx Instructions: takes 500mg at night estradiol 0.5 mg tablet 0.5 mg PO DAILY progesterone micronized 100 mg capsule 100 mg PO DAILY lidocaine [Lidoderm] 5 % adhesive patch,medicated 1 patch topical DAILY PRN (Reason: Pain) Rx Instructions: leave on most painful area for up to 12 hrs pantoprazole 40 mg tablet,delayed release (DR/EC) 40 mg PO DAILY Qty: 30 5RF ondansetron 4 mg tablet,disintegrating 4 mg PO Q8H PRN (Reason: nausea and vomiting) Qty: 30 0RF Referrals Referrals: Barbie Baron DO [Primary Care Provider] -
[2024-05-03 20:03] LABS: Basophils # (auto) 0.08 K/uL (0.00-0.20); Basophils % (auto) 0.4 %; Eosinophils # (auto) 0.01 K/uL (0.00-0.50); Eosinophils % (auto) 0.1 %; Hematocrit (blood only) 38.8 % (37.0-47.0); Hemoglobin 13.6 g/dl (12.0-16.0); Immature Granulocytes # (auto) 0.09 K/uL (0.01-0.20); Immature Granulocytes % (auto) 0.5 %; Lymphocytes # (auto) 1.43 K/uL (1.20-3.40); Lymphocytes % (auto) 7.2 %; Mean Corpuscular Hemoglobin 30.6 pg (25.0-34.0); Mean Corpuscular Hgb Conc 35.1 g/dL (32.0-36.0); Mean Corpuscular Volume 87.2 fL (80.0-100.0); Mean Platelet Volume 10.7 fL (9.4-12.4); Monocytes # (auto) 0.72 K/uL (0.11-0.59); Monocytes % (auto) 3.6 %; Neutrophils # (auto) 17.66 K/uL (1.40-6.50); Neutrophils % (auto) 88.2 %; Platelet Count 569 K/uL (130-400); RDW Coefficient of Variation 11.9 % (11.5-14.5); Red Blood Count 4.45 M/uL (4.20-5.40); White Blood Count 19.99 K/ul (4.8-10.8)
[2024-05-03] MEDS: ONDANSETRON INJ 2 MG/ML 2 ML VIAL ONE (20:05)
[2024-05-03 20:06] LABS: Albumin Globulin Ratio 1.5 (0.9-2); Albumin Level 4.6 gm/dl (3.4-5.0); BUN Creatinine Ratio 13.5 (10-20); Bilirubin,Total 0.4 mg/dl (0.2-1.0); Calcium 9.6 mg/dl (8.6-10.3); Creatinine Clr Calc Pharmacy 45.9 ml/min; Globulin 3.1 gm/dl (2.5-4.0); Potassium 3.5 mmol/L (3.5-5.1); Total Protein 7.7 gm/dl (6.0-8.3)
[2024-05-03] MEDS: OPTIRAY 320 100ml IV ONE (20:09)
[2024-05-03] MEDS: SODIUM CHLORIDE 0.9% 1,000 ML IV ONE (20:20)
[2024-05-03] MEDS: HYDROmorphone INJ 0.5 MG/0.5 ML SYR IV STA (20:37)
[2024-05-03 20:38] LABS: Adenovirus PCR Not Detected (NotDetected); Bordetella parapertussis PCR Not Detected (NotDetected); Bordetella pertussis PCR Not Detected (NotDetected); Chlamydia pneumoniae PCR Not Detected (NotDetected); Coronavirus 229E PCR Not Detected (NotDetected); Coronavirus CoV-2 (COVID19)PCR Not Detected (NotDetected); Coronavirus HKU1 PCR Not Detected (NotDetected); Coronavirus NL63 PCR Not Detected (NotDetected); Coronavirus OC43PCR Not Detected (NotDetected); Human Metapneumovirus PCR Not Detected (NotDetected); Influenza A PCR Not Detected (NotDetected); Influenza B PCR Not Detected (NotDetected); Mycoplasma pneumoniae PCR Not Detected (NotDetected); Parainfluenza Virus 1 PCR Not Detected (NotDetected); Parainfluenza Virus 2 PCR Not Detected (NotDetected); Parainfluenza Virus 3 PCR Not Detected (NotDetected); Parainfluenza Virus 4 PCR Not Detected (NotDetected); Respiratory Syncytial VirusPCR Not Detected (NotDetected); Rhinovirus/Enterovirus PCR Not Detected (NotDetected)
[2024-05-03 20:44] LABS: iSTAT Creatinine 0.9 mg/dl (0.6-1.3); iSTAT Hemoglobin 14.3 g/dl (12.0-16.0); iSTAT Ionized Calcium 1.07 mmol/l (1.12-1.32); iSTAT Potassium 3.4 mmol/L (3.3-5.0)
[2024-05-03 20:54] LABS: Appearance Urine Clear (Clear); Bilirubin Urine Negative (Negative); Blood Urine Negative (Negative); Color Urine Yellow; Glucose Urine UA Negative (Negative); Ketones Urine 1+ (Negative); Leukocyte Esterase Urine Negative (Negative); Nitrite Urine Negative (Negative); Protein Urine Negative (Negative); Specific Gravity Urine 1.027 (1.000-1.030); Urobilinogen Urine Negative (Negative); pH Urine 8.5 (4.5-7.5)
--- NOTE | 2024-05-03 21:08 | CT Scan Report ---
Exam(s): CT ABDOMEN + PELVIS With Contrast IV Amt: 93ml optiray 320 EXAM: CT Abdomen and Pelvis With Intravenous Contrast CLINICAL HISTORY: Reason for exam: diffuse abd pain. TECHNIQUE: Axial computed tomography images of the abdomen and pelvis with intravenous contrast. CTDI is 11 mGy and DLP is 515 mGy-cm. Automated exposure control was utilized for the study. A dose lowering technique was utilized adhering to the principles of ALARA. CONTRAST: Patient received 93ml optiray 320 of IV contrast COMPARISON: 11/21/2023 FINDINGS: ABDOMEN: Liver: Unremarkable. Gallbladder and bile ducts: Cholecystectomy. Pancreas: Unremarkable. Spleen: Unremarkable. Adrenals: Unremarkable. Kidneys and ureters: Unremarkable. No obstructing stones. No hydronephrosis. Stomach and bowel: Mild mucosal thickening within the distal transverse colon, descending colon and sigmoid colon, underdistention versus mild colitis. Colonic diverticulosis without acute diverticulitis. PELVIS: Appendix: No findings to suggest acute appendicitis. Bladder: Unremarkable. Reproductive: Unremarkable as visualized. ABDOMEN and PELVIS: Intraperitoneal space: Unremarkable. No free air. No significant fluid collection. Bones/joints: No acute fracture. Soft tissues: Unremarkable. Vasculature: Unremarkable. Lymph nodes: Unremarkable. IMPRESSION: Mild mucosal thickening within the distal transverse colon, descending colon and sigmoid colon, underdistention versus mild colitis. Electronically signed by: David Sanabria MD 05/03/24 21:08 PM
[2024-05-03] MEDS: CIPROFLOXACIN / D5W 400 MG/200 ML BAG IV STA (21:22)
[2024-05-03] MEDS: metroNIDAZOLE 500 MG/100 ML BAG IV STA (21:23)
--- NOTE | 2024-05-03 22:04 | History & Physical Report ---
Date of Service May 03, 2024 Assessment & Plan (1) Colitis: (2) Neutrophilic leukocytosis: (3) Intractable abdominal pain: (4) HTN (hypertension): (5) Gitelman syndrome: (6) Depression with anxiety: Plan Intractable abdominal pain/colitis involving transverse, descending and sigmoid colon- Clear liquid diet as tolerated Continue Cipro 40 mg IV every 12 hours and Flagyl 500 mg IV every 8 hours begun in the ED No recent antibiotic use or questionable food intakes Status post 1 L normal saline in the ED Zofran 4 mg IV every 6 hours as needed Acetaminophen 650 mg by mouth every 6 hours as needed for mild pain or fever Dilaudid 0.25 mg IV every 3 hours as needed for moderate pain Dilaudid 0.5 mg IV every 3 hours as needed for severe pain Pantoprazole 40 mg IV x 1 now Gitelman syndrome- Potassium 3.5 Can resume potassium chloride 20 mill equivalents p.o. twice daily if tolerated in the morning NSS + KCl 20 mEq at 125 mL/h x 2 L Magnesium 1.8 Give mag sulfate 1 g IV Continue spironolactone 50 mg p.o. every morning Repeat laboratories in the a.m. Depression with anxiety- Continue clonazepam 1 mg p.o. twice daily, fluoxetine 20 mg p.o. daily History of Present Illness Chief Complaint: The patient presents to the emergency department with acute onset of generalized abdominal pain, worse on the left side, that occurred while out shopping at about 3:00 PM this afternoon. Primary Care Provider: Barbie Braon DO The patient is a 63-year-old female with a past medical history including hypertension, Schatzki ring, esophageal dysphagia, GERD, hyperlipidemia, diverticulosis, depression with anxiety, lumbar degenerative disc disease and Gitelman syndrome. She presents to the emergency department with acute onset of severe predominantly left-sided abdominal pain, accompanied by nausea without vomiting. She reports no change in usual dietary intake, with no questionable food intakes. Only difference in her medication regimen is that she reports starting a magnesium supplement recently Allergies Allergy/AdvReac Type Severity Reaction Status Date / Time amoxicillin Allergy Intermediate rash Verified 05/03/24 21:55 clavulanic acid Allergy Intermediate rash Verified 05/03/24 21:56 latex Allergy Intermediate SORES-BLIST Verified 05/03/24 21:56 ERS Sulfa (Sulfonamide Allergy Intermediate "SULFA": Verified 05/03/24 21:56 Antibiotics) UNKNOWN meperidine AdvReac Intermediate VOMITING Verified 05/03/24 21:56 morphine AdvReac Intermediate VOMITING Verified 05/03/24 21:56 oxycodone AdvReac Mild N/V, Verified 05/03/24 21:57 CONFUSION dexlansoprazole AdvReac Unknown TORE Verified 05/03/24 21:57 STOMACH UP fentanyl AdvReac N/V Verified 05/03/24 21:58 Home Medications Medication Instructions Recorded Confirmed Type potassium chloride 20 mEq 20 meq PO BID #180 tabs 09/05/23 05/03/24 Rx tablet,extended release(part/cryst) ondansetron 4 mg disintegrating 4 mg PO Q8H PRN nausea and 11/21/23 05/03/24 Rx tablet vomiting #30 tabs pantoprazole 40 mg tablet,delayed 40 mg PO DAILY #30 tabs 12/15/23 05/03/24 Rx release spironolactone 50 mg tablet 50 mg PO HS #90 tabs 01/18/24 05/03/24 Rx estradiol 0.5 mg tablet 0.5 mg PO DAILY 04/09/24 05/03/24 History progesterone micronized 100 mg 100 mg PO DAILY 04/09/24 05/03/24 History capsule doxepin 6 mg tablet 6 mg PO HS PRN sleep #14 tabs 04/13/24 05/03/24 Rx clonazepam 1 mg tablet (Klonopin) 1 mg PO BID #60 tabs 04/19/24 05/03/24 Rx fluoxetine 20 mg tablet 20 mg PO DAILY #30 tabs 04/19/24 05/03/24 Rx lidocaine 4 % topical patch 1 patch topical DAILY PRN Pain 05/03/24 05/03/24 History magnesium oxide 500 mg PO QPM 05/03/24 05/03/24 History Past Med/Surg History Problem List (Updated 05/03/24 @ 23:45 by Dereck Whaley MD) Neutrophilic leukocytosis Elevated lactic acid level (Acute) Colitis (Acute) Nausea & vomiting (Acute) Intractable abdominal pain (Acute) HTN (hypertension) Postmenopausal disorder Schatzki's ring Glaucoma Plantar fasciitis, left Tear of peroneal tendon of left foot Esophageal dysphagia History of COVID-19 Peroneal tendon tear surgical repair Tinnitus Dry eye syndrome Acid reflux Prediabetes Osteoarthritis Migraine headache Irritable bowel syndrome with diarrhea Iron deficiency Insomnia, persistent Hyperlipidemia Diverticulosis Depression with anxiety Chronic sinusitis Degenerative disc disease, lumbar Gitelman syndrome Medical History (Updated 05/03/24 @ 23:45 by Dereck Whaley MD) Post herpetic neuralgia Schatzki's ring History of esophageal dilatation Hx of migraines Chronic radicular pain of lower back Hx of seasonal allergies "Used to use an inhaler years ago for her allergies" History of COVID-19 (03/2023) 03/02/22, home test, not hosp; high fever, chills, nausea and diarrhea, loss taste>resolved w/exception of loss of taste 03/2023 - mild, recovered Diverticular disease hx DDD (degenerative disc disease) Surgical History Hx of colonoscopy History of laser refractive surgery (10/2023) left eye due to glaucoma S/P rhinoplasty S/P tendon repair (03/2019) L ankle History of prior ablation treatment cervix History of esophagogastroduodenoscopy (EGD) History of section History of tonsillectomy History of cholecystectomy Family History Father Family history of CABG Cardiac disorder Diabetes Hypertension Myocardial infarction Mother Cardiac disorder Diabetes Hypertension Myocardial infarction Coronary heart disease Sister Pseudotumor cerebri Uncle Prostate cancer Denies family history of Ovarian cancer Breast cancer Social History Smoking Status: Never smoker Tobacco Type: Cigarettes Age Started Using Tobacco: 13; Age Quit Using Tobacco: 22; packs per day: 0.10; Cigarettes Per Day: 2-3 cig/day; Second Hand Exposure: No; Do You Dip or Chew Tobacco: No; Hx Alcohol Use: No Hx Substance Use: Yes Prescribed Medications: Marijuana Last Used Substance: Days (ago) Last Used Substance Other:: medical marijuana (advised) Preferred Language: Croatian Communication Ability: Effective Visual Impairment: No Limitations Hearing Ability: Normal Machine Fitter Required: No Beliefs That Will Affect Care: None marital status: Current Living Situation: Spouse current occupational status: disabled 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 Feels Safe at Home: Yes Childhood Exposure to Second-Hand Smoke: No Diet: regular Diet Comment: regular, low appetite caffeine: Yes (pepsi ) during the past year weight has: remained stable Dental Care, Regularly: Yes Physical Activity Frequency: Daily Physical Activity Frequency Comment: work Seatbelt Use: always Sunscreen Use: Yes Assistive Devices: Contacts Review of Systems Review of Systems: The patient denies chest pain, palpitations, shortness of breath, dyspnea on exertion, cough, lower extremity swelling, sore throat, fevers, chills, sweats, vomiting, blood in urine or stool, dysuria, urinary frequency or urgency, lightheadedness, dizziness, headache, memory loss, loss of consciousness, rash, abnormal bruising or bleeding, imbalance, focal or generalized weakness, numbness or tingling in arms or legs, generalized arthralgias or myalgias, back or neck pain, or night sweats. The review of systems is otherwise negative other than for that already noted above, and at least 10 systems have been reviewed. Physical Exam Physical Exam: The patient is awake, alert and oriented 3, well developed and well nourished, normocephalic and atraumatic, lying in bed and in moderate distress secondary to abdominal pain HEENT--PERRL, EOMI, mucous membranes and oropharynx mildly dry. Neck--supple. No JVD. No bruits. Thyroid normal, trachea midline, no adenopathy. Heart--normal S1 and S2. No murmurs, rubs or gallops. Lungs--clear bilaterally, no respiratory distress, no accessory muscle use. Abdomen--normal bowel sounds and soft. Tender left lower lateral quadrants. No hernias or masses, no organomegaly. Extremities--no cyanosis or clubbing. No edema. Dermatologic--normal skin turgor, normal color, no abnormal lymph nodes, no rash. Neurologic--cranial nerves II through XII grossly intact. Rheumatologic--normal range of motion. Psychiatric--normal affect. Results & Data Results & Data Vital Signs (Past 12 Hours) Vital Signs Temp Pulse Pulse Resp BP BP Pulse Ox 05/03/24 21:00 81 14 107/67 92 05/03/24 19:31 100 05/03/24 19:04 36.6 C 101 H 25 H 155/129 H 100 05/03/24 19:04 100 05/03/24 19:04 101 H 25 H 155/129 H 100 05/03/24 18:55 36.4 C L 95 H 22 124/79 100 O2 Del Method 05/03/24 21:00 Room Air 05/03/24 19:31 Room Air 05/03/24 19:04 Room Air 05/03/24 19:04 Room Air 05/03/24 19:04 Room Air 05/03/24 18:55 Room Air Laboratory Results Laboratory Results WBC 19.99 K/ul (4.8-10.8) H 05/03/24 19:08 RBC 4.45 M/uL (4.20-5.40) 05/03/24 19:08 Hgb 13.6 g/dl (12.0-16.0) 05/03/24 19:08 POC Hgb 14.3 g/dl (12.0-16.0) 05/03/24 19:13 Hct 38.8 % (37.0-47.0) 05/03/24 19:08 POC Hct 42 % (37-47) 05/03/24 19:13 MCV 87.2 fL (80.0-100.0) 05/03/24 19:08 MCH 30.6 pg (25.0-34.0) 05/03/24 19:08 MCHC 35.1 g/dL (32.0-36.0) 05/03/24 19:08 RDW Std Deviation 38.0 fL (36.4-46.3) 05/03/24 19:08 RDW Coeff of Soni 11.9 % (11.5-14.5) 05/03/24 19:08 Plt Count 569 K/uL (130-400) H 05/03/24 19:08 MPV 10.7 fL (9.4-12.4) 05/03/24 19:08 Immature Gran % (Auto) 0.5 % 05/03/24 19:08 Neut % (Auto) 88.2 % 05/03/24 19:08 Lymph % (Auto) 7.2 % 05/03/24 19:08 [place] % (Auto) 3.6 % 05/03/24 19:08 Eos % (Auto) 0.1 % 05/03/24 19:08 Baso % (Auto) 0.4 % 05/03/24 19:08 Neut # (Auto) 17.66 K/uL (1.40-6.50) H 05/03/24 19:08 Lymph # (Auto) 1.43 K/uL (1.20-3.40) 05/03/24 19:08 [place] # (Auto) 0.72 K/uL (0.11-0.59) H 05/03/24 19:08 Eos # (Auto) 0.01 K/uL (0.00-0.50) 05/03/24 19:08 Baso # (Auto) 0.08 K/uL (0.00-0.20) 05/03/24 19:08 Immature Gran # (Auto) 0.09 K/uL (0.01-0.20) 05/03/24 19:08 POC Sodium 138 mmol/L (135-144) 05/03/24 19:13 Sodium 138 mmol/L (136-145) 05/03/24 19:08 POC Potassium 3.4 mmol/L (3.3-5.0) 05/03/24 19:13 Potassium 3.5 mmol/L (3.5-5.1) 05/03/24 19:08 POC Chloride 102 mmol/L (101-112) 05/03/24 19:13 Chloride 102 mmol/L (98-107) 05/03/24 19:08 Carbon Dioxide 23 mmol/L (21-32) 05/03/24 19:08 POC Total CO2 21 mmol/L (24-31) L 05/03/24 19:13 Anion Gap 13 (3-11) H 05/03/24 19:08 POC Anion Gap 19.0 mmol/L (16-25) 05/03/24 19:13 POC BUN 10 mg/dl (7-18) 05/03/24 19:13 BUN 12 mg/dl (6-23) 05/03/24 19:08 Creatinine 0.89 mg/dl (0.6-1.2) 05/03/24 19:08 POC Creatinine 0.9 mg/dl (0.6-1.3) 05/03/24 19:13 Est Cr Clr Drug Dosing 45.9 ml/min 05/03/24 19:08 eGFR 72.35 05/03/24 19:08 BUN/Creatinine Ratio 13.5 (10-20) 05/03/24 19:08 Glucose 146 mg/dl (70-99(Fasting)) H 05/03/24 19:08 POC Glucose (other) 145 mg/dl (70-99) H 05/03/24 19:13 Lactate 2.1 mmol/L (0.4-2.0) H* 05/03/24 19:08 Calcium 9.6 mg/dl (8.6-10.3) 05/03/24 19:08 POC Ioniz Calcium [place] 1.07 mmol/l (1.12-1.32) L 05/03/24 19:13 Magnesium 1.8 mg/dl (1.7-2.4) 05/03/24 19:08 Total Bilirubin 0.4 mg/dl (0.2-1.0) 05/03/24 19:08 AST 13 U/L (13-39) 05/03/24 19:08 ALT 8 U/L (7-52) 05/03/24 19:08 Alkaline Phosphatase 76 U/L (34-104) 05/03/24 19:08 Troponin I High Sens 3.0 pg/ml (0-14) 05/03/24 19:08 Total Protein 7.7 gm/dl (6.0-8.3) 05/03/24 19:08 Albumin 4.6 gm/dl (3.4-5.0) 05/03/24 19:08 Globulin 3.1 gm/dl (2.5-4.0) 05/03/24 19:08 Albumin/Globulin Ratio 1.5 (0.9-2) 05/03/24 19:08 Lipase 15 U/L (11-82) 05/03/24 19:08 Procalcitonin 0.02 ng/ml (0-0.5) 05/03/24 19:08 Urine Color Yellow 05/03/24 20:44 Urine Appearance Clear (Clear) 05/03/24 20:44 Urine pH 8.5 (4.5-7.5) H 05/03/24 20:44 Ur Specific [place] 1.027 (1.000-1.030) 05/03/24 20:44 Urine Protein Negative (Negative) 12/19/24 20:44 Urine Glucose (UA) Negative (Negative) 05/03/24 20:44 Urine Ketones 1+ (Negative) H 05/03/24 20:44 Urine Blood Negative (Negative) 05/03/24 20:44 Urine Nitrite Negative (Negative) 05/03/24 20:44 Urine Bilirubin Negative (Negative) 05/03/24 20:44 Urine Urobilinogen Negative (Negative) 05/03/24 20:44 Ur Leukocyte Esterase Negative (Negative) 05/03/24 20:44 Adenovirus (PCR) Not Detected (NotDetected) 05/03/24 Unknown B. pertussis DNA (PCR) Not Detected (NotDetected) 05/03/24 Unknown B.parapertussis DNA PCR Not Detected (NotDetected) 05/03/24 Unknown C. pneumoniae DNA (PCR) Not Detected (NotDetected) 05/03/24 Unknown Coronavirus OC43 (PCR) Not Detected (NotDetected) 05/03/24 Unknown Coronavirus HKU1 (PCR) Not Detected (NotDetected) 05/03/24 Unknown Coronavirus 229E (PCR) Not Detected (NotDetected) 05/03/24 Unknown SARS-CoV-2 (PCR) Not Detected (NotDetected) 05/03/24 Unknown Coronavirus NL63 (PCR) Not Detected (NotDetected) 05/03/24 Unknown Human Metapneumovir PCR Not Detected (NotDetected) 05/03/24 Unknown Influenza Type A (PCR) Not Detected (NotDetected) 05/03/24 Unknown Influenza Type B (PCR) Not Detected (NotDetected) 05/03/24 Unknown M. pneumoniae (PCR) Not Detected (NotDetected) 05/03/24 Unknown Parainfluenza 1 (PCR) Not Detected (NotDetected) 05/03/24 Unknown Parainfluenza 2 (PCR) Not Detected (NotDetected) 05/03/24 Unknown Parainfluenza 3 (PCR) Not Detected (NotDetected) 05/03/24 Unknown Parainfluenza 4 (PCR) Not Detected (NotDetected) 05/03/24 Unknown RSV (PCR) Not Detected (NotDetected) 05/03/24 Unknown Entero/Rhino (PCR) Not Detected (NotDetected) 05/03/24 Unknown Impressions Abdomen/Pelvis CT 05/03/24 19:44 Exam(s): CT ABDOMEN + PELVIS With Contrast IV Amt: 93ml optiray 320 EXAM: CT Abdomen and Pelvis With Intravenous Contrast CLINICAL HISTORY: Reason for exam: diffuse abd pain. TECHNIQUE: Axial computed tomography images of the abdomen and pelvis with intravenous contrast. CTDI is 11 mGy and DLP is 515 mGy-cm. Automated exposure control was utilized for the study. A dose lowering technique was utilized adhering to the principles of ALARA. CONTRAST: Patient received 93ml optiray 320 of IV contrast COMPARISON: 11/21/2023 FINDINGS: ABDOMEN: Liver: Unremarkable. Gallbladder and bile ducts: Cholecystectomy. Pancreas: Unremarkable. Spleen: Unremarkable. Adrenals: Unremarkable. Kidneys and ureters: Unremarkable. No obstructing stones. No hydronephrosis. Stomach and bowel: Mild mucosal thickening within the distal transverse colon, descending colon and sigmoid colon, underdistention versus mild colitis. Colonic diverticulosis without acute diverticulitis. PELVIS: Appendix: No findings to suggest acute appendicitis. Bladder: Unremarkable. Reproductive: Unremarkable as visualized. ABDOMEN and PELVIS: Intraperitoneal space: Unremarkable. No free air. No significant fluid collection. Bones/joints: No acute fracture. Soft tissues: Unremarkable. Vasculature: Unremarkable. Lymph nodes: Unremarkable. IMPRESSION: Mild mucosal thickening within the distal transverse colon, descending colon and sigmoid colon, underdistention versus mild colitis. Electronically signed by: David Sanabria MD 05/03/24 21:08 PM Code Status & VTE Plan Code Status Full code VTE Prophylaxis Plan VTE Prophylaxis will be ordered: Yes PG Care Time/CCT Total # of Minutes Spent Total Time Spent with Patient: Total time spent is greater than 50% in coordination of care (as documented) at patient's floor/unit and/or counseling patient: Coding Level of Care Code 71427 INT INP/OBS CARE 3/75MIN Diagnoses Colitis K52.9 Neutrophilic leukocytosis D72.828 Intractable abdominal pain R10.9 HTN (hypertension) I10 Gitelman syndrome E83.42; E87.6 Depression with anxiety F41.8
[2024-05-03 22:12] LABS: Magnesium 1.8 mg/dl (1.7-2.4)
[2024-05-03] MEDS: FLUoxetine HCL 20 MG CAP PO ONE (23:05)
[2024-05-03] MEDS: clonazePAM 1 MG TAB PO STA (23:05)
[2024-05-03] MEDS: NSS + 20MEQ KCL 20 MEQ/1,000 ML BAG IV SCH (23:11)
[2024-05-04] MEDS: MAGNESIUM SULFATE / D5W 1 GM/100 ML BAG IV ONE (00:11)
[2024-05-04] MEDS: PANTOprazole 40 MG/10 ML SYR IV ONE (00:11)
[2024-05-04] MEDS ORDERED: DOXEPIN HCL 3 MG TAB PO PRN (01:29)
[2024-05-04] MEDS ORDERED: ACETAMINOPHEN 325 MG TAB PO PRN (01:29)
[2024-05-04] MEDS: HYDROmorphone INJ 0.5 MG/0.5 ML SYR IV PRN ×2 (01:59→19:46)
[2024-05-04 04:42] LABS: Basophils # (auto) 0.05 K/uL (0.00-0.20); Basophils % (auto) 0.5 %; Eosinophils # (auto) 0.03 K/uL (0.00-0.50); Eosinophils % (auto) 0.3 %; Hematocrit (blood only) 34.4 % (37.0-47.0); Hemoglobin 11.6 g/dl (12.0-16.0); Immature Granulocytes # (auto) 0.03 K/uL (0.01-0.20); Immature Granulocytes % (auto) 0.3 %; Lymphocytes # (auto) 2.04 K/uL (1.20-3.40); Lymphocytes % (auto) 19.9 %; Mean Corpuscular Hemoglobin 30.1 pg (25.0-34.0); Mean Corpuscular Hgb Conc 33.7 g/dL (32.0-36.0); Mean Corpuscular Volume 89.1 fL (80.0-100.0); Mean Platelet Volume 10.6 fL (9.4-12.4); Monocytes # (auto) 0.84 K/uL (0.11-0.59); Monocytes % (auto) 8.2 %; Neutrophils # (auto) 7.25 K/uL (1.40-6.50); Neutrophils % (auto) 70.8 %; Platelet Count 412 K/uL (130-400); RDW Coefficient of Variation 11.9 % (11.5-14.5); RDW Standard Deviation 38.7 fL (36.4-46.3); Red Blood Count 3.86 M/uL (4.20-5.40); White Blood Count 10.24 K/ul (4.8-10.8)
[2024-05-04 05:11] LABS: Albumin Globulin Ratio 1.5 (0.9-2); Albumin Level 3.7 gm/dl (3.4-5.0); BUN Creatinine Ratio 11.7 (10-20); Bilirubin,Total 0.4 mg/dl (0.2-1.0); Calcium 8.3 mg/dl (8.6-10.3); Globulin 2.4 gm/dl (2.5-4.0); Magnesium 2.3 mg/dl (1.7-2.4); Potassium 3.9 mmol/L (3.5-5.1); Total Protein 6.1 gm/dl (6.0-8.3)
[2024-05-04 07:54] VITALS: RESP 18
[2024-05-04] MEDS: metroNIDAZOLE 500 MG/100 ML BAG IV SCH (08:14)
[2024-05-04] MEDS: CIPROFLOXACIN / D5W 400 MG/200 ML BAG IV SCH (08:14)
[2024-05-04] MEDS: ONDANSETRON 4 MG OD TAB PO PRN (08:27)
[2024-05-04] MEDS: POTASSIUM CHLORIDE CRTAB 20 MEQ TABCR PO SCH (08:27)
[2024-05-04] MEDS: clonazePAM 1 MG TAB PO SCH (08:27)
[2024-05-04] MEDS: PANTOprazole 40 MG TAB PO SCH (08:28)
[2024-05-04] MEDS: FLUoxetine HCL 20 MG CAP PO SCH (08:28)
[2024-05-04] MEDS: estradioL 1 MG TAB PO SCH (08:28)
[2024-05-04] MEDS: ONDANSETRON INJ 2 MG/ML 2 ML VIAL IV PRN (10:18)
[2024-05-04] MEDS ORDERED: LORazepam 2 MG/1 ML VIAL IV PRN (10:28)
--- NOTE | 2024-05-04 12:00 | Hospitalist Progress Note ---
Date of Service May 04, 2024 Assessment & Plan (1) Colitis: Plan: Intractable abdominal pain/colitis involving transverse, descending and sigmoid colon- Abrupt onset of abdominal pain and vomiting. No recent antibiotic use or questionable food intake. - Clear liquid diet as tolerated - Continue Cipro IV and Flagyl IV - continue PPI - continue IVF x 2L Nausea: IV zofran Pain control: Tylenol, diluadid (2) Gitelman syndrome: Plan: Continue potassium and Magnesium - K & mag replete today - continue aldactone AM BMP (3) Depression with anxiety: Plan: Continue clonazepam 1 mg p.o. twice daily, fluoxetine 20 mg p.o. daily Added atarax PO to help with anxiety, IV ativan prn if cant tolerate PO but trying to avoid Plan Dispo: continued inpatient stay, working on increasing diet DVT Proh: lovenox added, hold estrogen until she has progesterone to avoid un opposed estrogen updated at bedside 05/04 Admission and Anticipated Discharge Date Admission Date: May 03, 2024 Supervising Physician Co-Signing Physician Notes Attending Attestation - Chart reviewed, care plan d/w JUSTINE Cardona. I agree w/ the lemus components of her documentation. With the colitis being a portion of the transverse, descending and sigmoid colon -- and given the abrupt onset in the absence of diarrhea -- ischemia? Only argument against such would be lack of bloody stool but that does not rule out ischemia. Does have risk factors for ischemia -- prior tobacco use, age, HTN. Either way cont cipro/flagyl to prevent gut translocation. Cont supportive care. Cem Carrasquillo MD Subjective Patient seen lying in bed this morning, present at bedside. Patient reports that she is not feeling well this morning. Abdominal pain has improved since admission, but nausea and vomiting still persists. Vomited shortly after taking her pills this morning, does not feel like she got her Klonopin. Feels like she cant stop crying this morning. also reports "feels like she is overdosing on antibiotics" when asked to further clarify, she thought this was because of her nausea, but has not gotten worse since starting Tele - SR 70s Review of Systems Review of Systems: All systems reviewed & are unremarkable except as noted in Subjective Physical Exam Physical Exam: General: VS as above, appears ill, tearful at times Resp: normal respiratory effort, lungs clear to auscultation CV: RRR, no murmur, Abd: soft, reports pain, but no guarding or rebounding Extremities: Moves all extremities, no edema Neuro: A&O x3, Skin: intact, no lesions noted Results & Data Results & Data Vital Signs (Past 12 Hours) Vital Signs Temp Pulse Pulse Pulse Resp BP Pulse Ox 05/04/24 11:35 97.7 F 74 18 111/67 100 05/04/24 08:00 57 L 05/04/24 07:53 97.7 F 67 18 102/67 99 05/04/24 01:20 05/04/24 01:20 97.5 F L 75 17 115/72 100 05/04/24 01:00 68 13 102/66 95 O2 Del Method 05/04/24 11:35 Room Air 05/04/24 08:00 05/04/24 07:53 Room Air 05/04/24 01:20 Room Air 05/04/24 01:20 Room Air 05/04/24 01:00 Room Air Laboratory Results cbc, chemistry, LFTs and biofire reviewed Diagnostic Findings CT A/P reviewed PG Care Time/CCT Total # of Minutes Spent Total Time Spent with Patient: Total time spent is greater than 50% in coordination of care (as documented) at patient's floor/unit and/or counseling patient: Coding Level of Care Code 39622 SUB INP/OBS CARE 3/50MIN Diagnoses Colitis K52.9 Gitelman syndrome E83.42; E87.6 Depression with anxiety F41.8
[2024-05-04] MEDS: hydrOXYzine HCl 25 MG TAB PO PRN (12:40)
[2024-05-04] MEDS: SENNA 8.6 MG TAB PO PRN (19:46)
[2024-05-04 20:11] LABS: A calco-baum cmplx NotReported Not Detected (NotDetected); Bact fragilis Not Reported Not Detected (NotDetected); Blood Culture Id Panel See PCR Comment (NotDetected); C auris Not Reported Not Detected (NotDetected); Calbicans Not Reported Not Detected (NotDetected); Candida glabrata Not Reported Not Detected (NotDetected); Candida krusei Not Reported Not Detected (NotDetected); Cneoformans/gatti Not Reported Not Detected (NotDetected); Cparapsilosis Not Reported Not Detected (NotDetected); E cloacae compx Not Reported Not Detected (NotDetected); Efaecalis Not Reported Not Detected (NotDetected); Efaecium Not Reported Not Detected (NotDetected); Enterobacterales Not Reported Not Detected (NotDetected); Escherichia coli Not Reported Not Detected (NotDetected); H influenzae Not Reported Not Detected (NotDetected); K aerogenes Not Reported Not Detected (NotDetected); Koxytoca Not Reported Not Detected (NotDetected); Kpneumoniae grp Not Reported Not Detected (NotDetected); Lmonocyt Not Reported Not Detected (NotDetected); N meningitidis Not Reported Not Detected (NotDetected); P aeruginosa Not Reported Not Detected (NotDetected); Proteus spp Not Reported Not Detected (NotDetected); Salmonella spp Not Reported Not Detected (NotDetected); Staph lugdunensis Not Reported Not Detected (NotDetected); Staph spp. Not Reported DETECTED (NotDetected); Staphaureus Not Reported Not Detected (NotDetected); Staphepi Not Reported Not Detected (NotDetected); Stenmaltophilia Not Reported Not Detected (NotDetected); Strep agal(GrpB) Not Reported Not Detected (NotDetected); Strep pneum Not Reported Not Detected (NotDetected); Strep pyog (GrpA) Not Reported Not Detected (NotDetected); Strep spp Not Reported Not Detected (NotDetected)
[2024-05-04 20:29] LABS: Staphylococcus spp. DETECTED (NotDetected)
[2024-05-04] MEDS: SPIRONOLACTONE 25 MG TAB PO SCH (21:43)
[2024-05-04] MEDS: MAGNESIUM OXIDE 400 MG TAB PO SCH (21:44)
--- NOTE | 2024-05-04 22:38 | Electrocardiogram Report ---
Test Reason : Blood Pressure : */* mmHG Vent. Rate : 102 BPM Atrial Rate : 102 BPM P-R Int : 134 ms QRS Dur : 76 ms QT Int : 352 ms P-R-T Axes : * 39 89 degrees QTcB Int : 459 ms Sinus tachycardia Otherwise normal ECG When compared with ECG of 21-Nov-2023 10:50, No significant change was found Confirmed by Jose Raul Carter ([id number]) on 05/04/2024 10:37:53 PM Referred By: REFERRED SELF Confirmed By: Jose Raul Carter
--- NOTE | 2024-05-04 22:39 | Electrocardiogram Report ---
Test Reason : Blood Pressure : */* mmHG Vent. Rate : 73 BPM Atrial Rate : 75 BPM P-R Int : * ms QRS Dur : 76 ms QT Int : 422 ms P-R-T Axes : * -3 52 degrees QTcB Int : 464 ms Poor data quality, interpretation may be adversely affected Normal sinus rhythm Cannot rule out Inferior infarct , age undetermined Abnormal ECG When compared with ECG of 03-May-2024 19:06, Minimal criteria for Inferior infarct are now Present Confirmed by Jose Raul Carter ([id number]) on 05/04/2024 10:38:26 PM Referred By: REFERRED SELF Confirmed By: Jose Raul Carter
[2024-05-05 03:52] VITALS: TEMP 98.4
[2024-05-05 07:43] VITALS: O2SAT 99
[2024-05-05 08:25] LABS: Basophils # (auto) 0.07 K/uL (0.00-0.20); Basophils % (auto) 0.9 %; Eosinophils # (auto) 0.08 K/uL (0.00-0.50); Eosinophils % (auto) 1.1 %; Hematocrit (blood only) 36.1 % (37.0-47.0); Hemoglobin 12.1 g/dl (12.0-16.0); Immature Granulocytes # (auto) 0.02 K/uL (0.01-0.20); Immature Granulocytes % (auto) 0.3 %; Lymphocytes # (auto) 2.03 K/uL (1.20-3.40); Lymphocytes % (auto) 26.7 %; Mean Corpuscular Hemoglobin 30.2 pg (25.0-34.0); Mean Corpuscular Hgb Conc 33.5 g/dL (32.0-36.0); Mean Platelet Volume 10.5 fL (9.4-12.4); Monocytes # (auto) 0.62 K/uL (0.11-0.59); Monocytes % (auto) 8.2 %; Neutrophils # (auto) 4.78 K/uL (1.40-6.50); Neutrophils % (auto) 62.8 %; Platelet Count 445 K/uL (130-400); RDW Coefficient of Variation 12.5 % (11.5-14.5); RDW Standard Deviation 41.3 fL (36.4-46.3); Red Blood Count 4.01 M/uL (4.20-5.40)
[2024-05-05 08:44] LABS: Albumin Globulin Ratio 1.3 (0.9-2); Albumin Level 3.8 gm/dl (3.4-5.0); BUN Creatinine Ratio 7.1 (10-20); Bilirubin,Total 0.5 mg/dl (0.2-1.0); Creatinine Clr Calc Pharmacy 41.2 ml/min; Globulin 2.9 gm/dl (2.5-4.0); Magnesium 1.9 mg/dl (1.7-2.4); Total Protein 6.7 gm/dl (6.0-8.3)
--- NOTE | 2024-05-05 08:51 | Hospitalist Progress Note ---
Date of Service May 05, 2024 Assessment & Plan (1) Colitis: Plan: Intractable abdominal pain/colitis involving transverse, descending and sigmoid colon- Abrupt onset of abdominal pain and vomiting. No recent antibiotic use or questionable food intake. - advanced diet to low fiber, oatmeal okay - Continue Cipro IV and Flagyl IV - continue PPI - continue IVF x 2L / BC: GP cocci in clusters - afebrile, no leukocystosis. Suspect contaminant but will await species. Nausea: IV zofran Pain control: Tylenol, Dilaudid (2) Gitelman syndrome: Plan: Continue potassium and Magnesium - K & mag replete x2 days - continue aldactone (3) Depression with anxiety: Plan: Continue clonazepam 1 mg p.o. twice daily, fluoxetine 20 mg p.o. daily Added atarax PO to help with anxiety, IV ativan prn if cant tolerate PO but trying to avoid (4) Positive blood culture: Plan Dispo: continued inpatient stay, working on increasing diet, awaiting BC results DVT Proh: lovenox added, hold estrogen until she has progesterone to avoid unopposed estrogen updated at bedside 05/04 Admission and Anticipated Discharge Date Admission Date: May 03, 2024 Supervising Physician Co-Signing Physician Notes Attending Attestation - Chart reviewed, care plan d/w JUSTINE Cardona. I agree w/ the lemus components of her documentation with the following addition - * positive blood culture; only 1/4 are positive - likely contaminant Either way cont cipro/flagyl to prevent gut translocation in setting of colitis. Cem Carrasquillo MD Subjective Patient lying in bed, appears better than yesterday nausea has improved, mild abdominal pain but is tolerable, hesitant to take any more pain medication because of constipation reports full liquid tray was not appetizing and just wants oatmeal - discussed with dietary + BC overnight, afebrile denies chills, sweats Tele - SR 70s Review of Systems Review of Systems: All systems reviewed & are unremarkable except as noted in Subjective Physical Exam Physical Exam: General: VS as above, appears better today, not crying Resp: normal respiratory effort, lungs clear to auscultation CV: RRR, no murmur, Abd: soft, reports tenderness with palpation , but no guarding or rebounding Extremities: Moves all extremities, no edema Neuro: A&O x3, Skin: intact, no lesions noted Results & Data Results & Data Vital Signs (Past 12 Hours) Vital Signs Temp Pulse Pulse Resp BP Pulse Ox O2 Del Method 05/05/24 07:43 98.4 F 83 18 132/81 99 Room Air 05/05/24 03:32 98.4 F 69 18 101/66 98 Room Air 05/04/24 22:26 85 05/04/24 22:25 97.7 F 80 18 125/79 98 Room Air Laboratory Results blood cultures reviewed CBC, chemistry, magnesium reviewed PG Care Time/CCT Total # of Minutes Spent Total Time Spent with Patient: Total time spent is greater than 50% in coordination of care (as documented) at patient's floor/unit and/or counseling patient: Coding Level of Care Code None Medical Decision Making High Complexity Diagnoses Colitis K52.9 Gitelman syndrome E83.42; E87.6 Depression with anxiety F41.8 Positive blood culture R78.81
[2024-05-05 11:36] VITALS: BP 109/76
--- NOTE | 2024-05-05 14:36 | Discharge Summary ---
Discharge Summary Date of Service May 05, 2024 Principal Dx & Hospital Course #1 = Principal Diagnosis (1) Colitis: Intractable abdominal pain/colitis involving transverse, descending and sigmoid colon- Abrupt onset of abdominal pain and vomiting. No diarrhea, pt is actually constipated. No recent antibiotic use or questionable food intake. - tolerating low fiber diet - Received Cipro IV and Flagyl IV - converted to PO at discharge for 5 day cou rse - continue PPI - received IVF x 2L / BC: staphyloccus capitis - afebrile, no leukocystosis. likely contaminant Stable for d/c home, continue low fiber diet until bowel function returns to normal. Recommend outpatient colonoscopy - pt states last one was 5 years ago and was told 5 year follow up but has done cologuard in the interim. 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 twice daily, fluoxetine 20 mg p.o. daily -atarax was helpful for acute increase in anxiety, did not prescribe on discharge but could be useful in the future. (4) Positive blood culture: 1 out of 4 blood cultures was positive for staphyloccus capitis - afebrile, no leukocystosis. likely contaminant no treatment needed Plan Dispo: stable for discharge home updated at bedside 05/04 & 05/05 Notes For Next Care Provider recommend colonoscopy Admission HPI Per Admitting Provider The patient is a 63-year-old female with a past medical history including hypertension, Schatzki ring, esophageal dysphagia, GERD, hyperlipidemia, diverticulosis, depression with anxiety, lumbar degenerative disc disease and Gitelman syndrome. She presents to the emergency department with acute onset of severe predominantly left-sided abdominal pain, accompanied by nausea without vomiting. She reports no change in usual dietary intake, with no questionable food intakes. Only difference in her medication regimen is that she reports starting a magnesium supplement recently Discharge Exam General: VS as above, appears better today, not crying Resp: normal respiratory effort, lungs clear to auscultation CV: RRR, no murmur, Abd: soft, reports tenderness with palpation , but no guarding or rebounding Extremities: Moves all extremities, no edema Neuro: A&O x3, Skin: intact, no lesions noted Discharge Plan Discharge Items Patient Disposition: Home - Self-Care Reason For Visit: COLITIS Discharge Diagnosis: Colitis Activity: Resume your previous activity Weightbearing: Full weightbearing Non-emergency contact: Primary Care Provider Call non-emergency contact if: you have any medication questions, your pain is not controlled, your pain is worsening and your temperature is above 101 Follow-up/Referrals: Barbie Baron DO [Primary Care Provider] - (follow up within 7-10 days ) Diet: Low Fiber Addtl Attending Provider Instructions: Ms. Adkins, You were hospitalized after having abdominal pain and nausea. You were found to have colitis - this was treated with IV antibitoics. You will continue on oral antibiotics, ciprofloxacin and flagyl for another two days. First dose AM 12/. Continue a low fiber/low residue diet until your stools return to normal and you abdominal pain has resolved. You have blood cultures pending at the time of discharge, they are negative at 24 hours but take 5 days to get final results. The one bacteria that did grow is a contaminant and we do not have to worry about this being an active infection. If they turn positive you will be notified, you can also check in with your PCP or the [facility] portal. However, given your symptoms I do not expect they will be positive. Make sure that you are staying well hydrated. Recommendation would be for a repeat colonoscopy. I know you have struggled with the prep in the past - you can discuss with your PCP/GI your individual risk and benefits. but there is chance this event was caused by low perfusion/ischemia rather than infection. No changes to your home medications. Activity: You can do normal everyday activities as your body allows. Take rest breaks if you feel tired. Do not overexert. Stop activity if you have pain, shortness of breath or feel dizzy. Follow-up appointments: Make an appointment with your primary care physician within one week of discharge. A copy of this summary will be sent to them. Every time you see your primary care physician, or any other doctor, bring your medication list, and a list of questions. CONTACT YOUR PRIMARY CARE PROVIDER if you experience any of the following: Shortness of breath or difficulty breathing Fevers or chills Feeling tired with normal activity or experiencing dizziness or fainting Difficulty following your treatment plan, or difficulty taking medications CALL 911 OR GO TO THE EMERGENCY DEPARTMENT if you experience any of the following: Severe abdominal pain or nausea/vomiting Severe chest pain, or chest pain that radiates (moves) to your jaw or arm Sudden, severe shortness of breath or difficulty breathing Thank you for allowing us to participate in your care. Elsi Cardona PA-C Pending Studies at Discharge: Yes (blood cultures ) Stand-Alone Forms: [facility], Smoking Cessation Medications and DC Order Prescriptions: New ciprofloxacin HCl 500 mg tablet 500 mg PO BID Qty: 4 0RF metronidazole 500 mg tablet 500 mg PO BID Qty: 4 0RF Continued potassium chloride 20 mEq tablet,ER particles/crystals 20 meq PO BID Qty: 180 1RF spironolactone 50 mg tablet 50 mg PO HS Qty: 90 1RF doxepin 6 mg tablet 6 mg PO HS PRN (Reason: sleep) Qty: 14 0RF Hold Instructions: Home Medication placed on hold at Doctor's office clonazepam [Klonopin] 1 mg tablet 1 mg PO BID Qty: 60 0RF estradiol 0.5 mg tablet 0.5 mg PO DAILY progesterone micronized 100 mg capsule 100 mg PO DAILY pantoprazole 40 mg tablet,delayed release (DR/EC) 40 mg PO DAILY Qty: 30 5RF magnesium oxide 500 mg magnesium Tablet 500 mg PO QPM lidocaine 4 % Adhesive Patch,Medicated 1 patch TOPICAL DAILY PRN (Reason: Pain) ondansetron 4 mg tablet,disintegrating 4 mg PO Q8H PRN (Reason: nausea and vomiting) Qty: 30 0RF No Action fluoxetine 20 mg tablet 20 mg PO DAILY Qty: 90 3RF Discharge Orders: Discharge Order (Routine); Ordered 05/05/24 Ordered By: Elsi Devlin/Other Patient Handouts: Low-Fiber Diet Admission Data Admit Date/Time: 05/03/24 22:03 Attending Provider: Cem Carrasquillo Admit Provider: Dereck Whaley Primary Care Provider: Barbie Baron Other Interventions: Discharge Summary Assessment (RN) Last Done: 05/05/24 14:39 Hospital Stay Data Consultations 05/03/24 21:19 ED Decision to Admit Stat Diagnostic Imagining Performed Abdomen/Pelvis CT 05/03/24 19:44 Exam(s): CT ABDOMEN + PELVIS With Contrast IV Amt: 93ml optiray 320 EXAM: CT Abdomen and Pelvis With Intravenous Contrast CLINICAL HISTORY: Reason for exam: diffuse abd pain. TECHNIQUE: Axial computed tomography images of the abdomen and pelvis with intravenous contrast. CTDI is 11 mGy and DLP is 515 mGy-cm. Automated exposure control was utilized for the study. A dose lowering technique was utilized adhering to the principles of ALARA. CONTRAST: Patient received 93ml optiray 320 of IV contrast COMPARISON: 11/21/2023 FINDINGS: ABDOMEN: Liver: Unremarkable. Gallbladder and bile ducts: Cholecystectomy. Pancreas: Unremarkable. Spleen: Unremarkable. Adrenals: Unremarkable. Kidneys and ureters: Unremarkable. No obstructing stones. No hydronephrosis. Stomach and bowel: Mild mucosal thickening within the distal transverse colon, descending colon and sigmoid colon, underdistention versus mild colitis. Colonic diverticulosis without acute diverticulitis. PELVIS: Appendix: No findings to suggest acute appendicitis. Bladder: Unremarkable. Reproductive: Unremarkable as visualized. ABDOMEN and PELVIS: Intraperitoneal space: Unremarkable. No free air. No significant fluid collection. Bones/joints: No acute fracture. Soft tissues: Unremarkable. Vasculature: Unremarkable. Lymph nodes: Unremarkable. IMPRESSION: Mild mucosal thickening within the distal transverse colon, descending colon and sigmoid colon, underdistention versus mild colitis. Electronically signed by: David Sanabria MD 05/03/24 21:08 PM Pending Results Patient Have Any Pending Studies at Discharge: Yes (blood cultures ) Discharge Instructions Given to Patient (Per Discharging Provider) Ms. Adkins, Bear were hospitalized after having abdominal pain and nausea. You were found to have colitis - this was treated with IV antibitoics. You will continue on oral antibiotics, ciprofloxacin and flagyl for another two days. First dose AM 05/06. Continue a low fiber/low residue diet until your stools return to normal and you abdominal pain has resolved. You have blood cultures pending at the time of discharge, they are negative at 24 hours but take 5 days to get final results. The one bacteria that did grow is a contaminant and we do not have to worry about this being an active infection. If they turn positive you will be notified, you can also check in with your PCP or the [facility] portal. However, given your symptoms I do not expect they will be positive. Make sure that you are staying well hydrated. Recommendation would be for a repeat colonoscopy. I know you have struggled with the prep in the past - you can discuss with your PCP/GI your individual risk and benefits. but there is chance this event was caused by low perfusion/ischemia rather than infection. No changes to your home medications. Activity: You can do normal everyday activities as your body allows. Take rest breaks if you feel tired. Do not overexert. Stop activity if you have pain, shortness of breath or feel dizzy. Follow-up appointments: Make an appointment with your primary care physician within one week of discharge. A copy of this summary will be sent to them. Every time you see your primary care physician, or any other doctor, bring your medication list, and a list of questions. CONTACT YOUR PRIMARY CARE PROVIDER if you experience any of the following: Shortness of breath or difficulty breathing Fevers or chills Feeling tired with normal activity or experiencing dizziness or fainting Difficulty following your treatment plan, or difficulty taking medications CALL 911 OR GO TO THE EMERGENCY DEPARTMENT if you experience any of the following: Severe abdominal pain or nausea/vomiting Severe chest pain, or chest pain that radiates (moves) to your jaw or arm Sudden, severe shortness of breath or difficulty breathing Thank you for allowing us to participate in your care. Elsi Cardona PA-C Supervising Physician Co-Signing Physician Notes Attending Attestation and Discharge Note: Pt seen/examined, chart reviewed, discharge care plan d/w JUSTINE Cardona. I agree w/ the lemus components of her discharge documentation. 63yo female with history of HTN, Gitelman syndrome, preDM. Presented with acute onset of left-sided abdominal pain and nausea. CT abd/pelvis showed colitis of the distal transverse colon, descending colon and sigmoid colon, underdistention versus mild colitis. Colonic diverticulosis without acute diverticulitis also seen. Following admission she had no blood per rectum. No diarrhea. No fever. WBC count of 19.9 normalized with antibiotics and supportive care. Diet resumed and advanced to regular diet without difficulty. Infectious colitis seemed unlikely given the lack of diarrhea. No evidence of diverticulitis. No history of ulcerative colitis. Although she had no bloody stool ischemic colitis was possible. She has risk factors for ischemia including h/o HTN, age, hyperlipidemia, and prior tobacco use. We recommended outpatient colonoscopy in 6-8 weeks to ensure no other process was present in the colon. She will finish a course of PO abx upon transition home. (mainly to prevent gut translocation) Discharge exam: gen - NAD neck - no JVD heart - RRR, s1 s2, no murmur lungs - CTA b/l abd - soft NT ND BS+; no peritoneal signs; no HSM ext - no edema, pulses 2+ b/l Cem Carrasquillo MD Total Time Total Time Spent Total Time Spent (In Minutes): Time spent day of discharge 38 minutes including direct patient care, medication reconciliation, documentation, review of labs and images, and coordination of care. Coding Level of Care Code 37559 INP/OBS DISCH >30 MIN Diagnoses Colitis K52.9 Gitelman syndrome E83.42; E87.6 Depression with anxiety F41.8 Positive blood culture R78.81
[2024-05-05 14:40] VITALS: PULSE 68
== END 2024-05-05 16:54 | disposition home or self-care (01) | DRG 392 ==
LOC: ED 18:52 → INTOOBSV 22:03 → 2N 22:03 → SUATTDRO 22:03 → 2N 05-04 01:04